=== PATIENT | male | born 1940 | race Caucasian/White ===

== ENCOUNTER 2017-12-16 12:14 | Inpatient (IN) | payer OTHER, MEDICARE ==
[~2017-12-16] VITALS: Ht 170.2 cm; Wt 78.7 kg
[2017-12-16] VITALS (26 sets, daily range): BP systolic 96–221; BP diastolic 59–127; PULSE 48–120; RESP 16–18; TEMP 98–98.4; O2SAT 93–100
[2017-12-16] MEDS: PROPOFOL 1000 MG/100 ML INJ 100 ML IV PRN ×2 (12:15→17:07)
[2017-12-16 12:28] LABS: AUTOMATED NEUTROPHIL # 4.3 TH/MM3 (1.8-7.7); BASOPHIL # 0.1 TH/MM3 (0-0.2); BASOPHIL % 1.5 % (0.0-2.0); EOSINOPHIL # 0.3 TH/MM3 (0-0.4); EOSINOPHIL % 3.8 % (0.0-4.0); HEMATOCRIT 50.8 % (39.0-51.0); HEMOGLOBIN 16.6 GM/DL (13.0-17.0); LYMPH % 23.3 % (9.0-44.0); LYMPHOCYTE # 1.7 TH/MM3 (1.0-4.8); MEAN CELL VOLUME 93.6 FL (80.0-100.0); MEAN CORPUSCULAR HEMOGLOBIN 30.7 PG (27.0-34.0); MEAN CORPUSCULAR HGB CONC 32.8 % (32.0-36.0); MEAN PLATELET VOLUME 10.3 FL (7.0-11.0); MONO % 11.1 % (0.0-8.0); MONOCYTE # 0.8 TH/MM3 (0-0.9); NEUT % 60.3 % (16.0-70.0); PLATELET COUNT 170 TH/MM3 (150-450); RED BLOOD COUNT 5.43 MIL/MM3 (4.50-5.90); RED CELL DISTRIBUTION WIDTH 13.8 % (11.6-17.2); WHITE BLOOD COUNT 7.2 TH/MM3 (4.0-11.0)
[2017-12-16] MEDS ORDERED: IODIXANOL 320 MG/ML 50 ML VIAL (for Rad CT) IVCONTRAST ONE (12:30)
[2017-12-16 12:37] LABS: CHLORIDE 105 MEQ/L (98-107); SODIUM (NA) 142 MEQ/L (136-145)
[2017-12-16 12:40] LABS: CALCIUM 9.1 MG/DL (8.5-10.1)
[2017-12-16 12:41] LABS: ALBUMIN 3.9 GM/DL (3.4-5.0); BICARBONATE 25.9 MEQ/L (21.0-32.0); BLOOD UREA NITROGEN 12 MG/DL (7-18); GLUCOSE,RANDOM 127 MG/DL (74-106); INTERNATIONAL NORMALIZED RATIO 1.1 RATIO; MAGNESIUM 1.6 MG/DL (1.5-2.5); PROTHROMBIN TIME - PATIENT 11.2 SEC (9.8-11.6)
[2017-12-16 12:44] LABS: ALT (GPT) 40 U/L (12-78); AST (GOT) 33 U/L (15-37); GLOMERULAR FILTRATION RATE 58 ML/MIN (>89)
--- NOTE | 2017-12-16 12:45 | PD ---
HPI Chief Complaint: Stroke Alert Time Seen by Provider: 12:24 Travel History International Travel<30 days: No Contact w/Intl Traveler<30days: No Traveled to known affect area: No History of Present Illness HPI This 77-year-old male is brought by paramedics. We believe his name is actually Florian MAURICIO. He has a history of atrial fibrillation. He had an ablation by Dr. Simpson in October. He is currently on Eliquis. His common-law has given some history and says that he generally takes his medication. He does not drink alcohol. There is no history of trauma. Is apparently visiting a friend when he had a sudden onset of severe headache became unresponsive. He was brought by paramedics. He is very combative and further assessment and history was not obtainable. He is on Eliquis and his says that he takes his medications reliably. He his does say that he has an abdominal aortic aneurysm which gets measured periodically PFSH Past Medical History ?: Not Social History Alcohol Use: No Tobacco Use: No Allergies-Medications (Allergen,Severity, Reaction): Coded Allergies: No Allergy Information Available (Unverified , 12/16/17) Reported Meds & Prescriptions Reported Meds & Active Scripts Active Reported Escitalopram (Escitalopram Oxalate) 10 Mg Tab 10 Mg PO DAILY Eliquis (Apixaban) 5 Mg Tab 5 Mg PO BID Magox 400 (Magnesium Oxide) 400 Mg Tablet 1 Tab PO DAILY Atorvastatin (Atorvastatin Calcium) 40 Mg Tab 40 Mg PO HS Amiodarone (Amiodarone HCl) 200 Mg Tab 200 Mg PO DAILY Tamsulosin (Tamsulosin HCl) 0.4 Mg Cap 0.8 Mg PO HS Omeprazole 20 Mg Tab 20 Mg PO DAILY Lisinopril 5 Mg Tab 5 Mg PO DAILY Digoxin 0.125 Mg Tab 0.125 Mg PO DAILY Metoprolol Succinate ER 24 HR (Metoprolol Succinate) 50 Mg Tab 50 Mg PO DAILY Metoprolol Succinate ER 24 HR (Metoprolol Succinate) 100 Mg Tab 100 Mg PO DAILY Review of Systems ROS Limitations: Clinical Condition, Intubated Physical Exam Narrative GENERAL: Well-developed male. On arrival he is extremely combative. He appears to be moving all extremities but will not follow commands. He does not talk at all or answer any questions SKIN: Focused skin assessment warm/dry. HEAD: Atraumatic. Normocephalic. EYES: Pupils equal and round. No scleral icterus. No injection or drainage. ENT: No nasal bleeding or discharge. Mucous membranes pink and moist. NECK: Trachea midline. No JVD. CARDIOVASCULAR: Regular rate and rhythm. No murmur appreciated. RESPIRATORY: No accessory muscle use. Clear to auscultation. Breath sounds equal bilaterally. GASTROINTESTINAL: Abdomen soft, non-tender, nondistended. Hepatic and splenic margins not palpable. MUSCULOSKELETAL: No obvious deformities. No clubbing. No cyanosis. No edema. NEUROLOGICAL: He appears to move all extremities. He does not follow commands. He does not have any meaningful speech Data Data Last Documented VS Vital Signs Date Time Temp Pulse Resp B/P (MAP) Pulse Ox O2 Delivery O2 Flow Rate FiO2 12/16/17 14:08 52 18 117/72 (87) 100 Ventilator 12/16/17 13:43 100 12/16/17 12:15 98.0 Orders Orders Blood Glucose (12/16/17 12:18) Oximetry (12/16/17 12:18) Iv Access Insert/Monitor (12/16/17 12:18) Ecg Monitoring (12/16/17 12:18) Oxygen Administration (12/16/17 12:18) Complete Blood Count With Diff (12/16/17 12:18) Act Partial Throm Time (Ptt) (12/16/17 12:18) Prothrombin Time / Inr (Pt) (12/16/17 12:18) Comprehensive Metabolic Panel (12/16/17 12:18) Type And Screen (12/16/17 12:18) Fibrinogen (12/16/17 12:18) Drug Screen, Random Urine (12/16/17 12:18) Electrocardiogram (12/16/17 12:24) Magnesium (Mg) (12/16/17 12:24) Thyroid Stimulating Hormone (12/16/17 12:24) Chest, Single Ap (12/16/17 12:24) Ct Brain W/O Iv Contrast(Rout) (12/16/17 12:24) Alcohol (Ethanol) (12/16/17 12:24) Propofol 1000 Mg/100 Ml Inj (Diprivan 10 (12/16/17 12:30) Cta Brain W Iv Contrast W 3d (12/16/17 12:49) Cta Neck W Iv Contrast W 3d (12/16/17 12:49) Ondansetron Inj (Zofran Inj) (12/16/17 13:30) Hydromorphone Pf Inj (Dilaudid Pf Inj) (12/16/17 13:30) Sodium Chlor 0.9% 1000 Ml Inj (Ns 1000 M (12/16/17 13:30) Iodixanol 320 Inj (Rad Ct) (Visipaque 32 (12/16/17 12:30) Portable Eeg (12/16/17 ) Mri Brain W/O Contrast (12/16/17 ) Urinary Catheter Insert/Apply (12/16/17 14:06) Paul-Gastric Tube Insert/Mon (12/16/17 14:06) Restraints Non-Violent ERICK.Q3H (12/16/17 14:06) Admit Order (Ed Use Only) (12/16/17 14:15) Ct Abd/Pel W/O Iv Contrast (12/16/17 14:15) Labs Laboratory Tests Test 12/16/17 12:00 12/16/17 13:15 White Blood Count 7.2 TH/MM3 Red Blood Count 5.43 MIL/MM3 Hemoglobin 16.6 GM/DL Hematocrit 50.8 % Mean Corpuscular Volume 93.6 FL Mean Corpuscular Hemoglobin 30.7 PG Mean Corpuscular Hemoglobin Concent 32.8 % Red Cell Distribution Width 13.8 % Platelet Count 170 TH/MM3 Mean Platelet Volume 10.3 FL Neutrophils (%) (Auto) 60.3 % Lymphocytes (%) (Auto) 23.3 % Monocytes (%) (Auto) 11.1 % Eosinophils (%) (Auto) 3.8 % Basophils (%) (Auto) 1.5 % Neutrophils # (Auto) 4.3 TH/MM3 Lymphocytes # (Auto) 1.7 TH/MM3 Monocytes # (Auto) 0.8 TH/MM3 Eosinophils # (Auto) 0.3 TH/MM3 Basophils # (Auto) 0.1 TH/MM3 CBC Comment DIFF FINAL Differential Comment Prothrombin Time 11.2 SEC Prothromb Time International Ratio 1.1 RATIO Activated Partial Thromboplast Time 22.6 SEC Fibrinogen 283 mg/dL Blood Urea Nitrogen 12 MG/DL Creatinine 1.10 MG/DL Random Glucose 127 MG/DL Total Protein 8.1 GM/DL Albumin 3.9 GM/DL Calcium Level 9.1 MG/DL Alkaline Phosphatase 107 U/L Aspartate Amino Transf (AST/SGOT) 33 U/L Alanine Aminotransferase (ALT/SGPT) 40 U/L Total Bilirubin 1.0 MG/DL Sodium Level 142 MEQ/L Potassium Level 4.2 MEQ/L Chloride Level 105 MEQ/L Carbon Dioxide Level 25.9 MEQ/L Anion Gap 11 MEQ/L Estimat Glomerular Filtration Rate 58 ML/MIN Magnesium Level 1.6 MG/DL Thyroid Stimulating Hormone 3rd Gen 4.090 uIU/ML Ethyl Alcohol Level LESS THAN 3 MG/DL Urine Opiates Screen NEG Urine Barbiturates Screen NEG Urine Amphetamines Screen NEG Urine Benzodiazepines Screen POS Urine Cocaine Screen NEG Urine Cannabinoids Screen NEG MDM Medical Decision Making Medical Screen Exam Complete: Yes Emergency Medical Condition: Yes Medical Record Reviewed: Yes Differential Diagnosis Differential includes CVA, intracerebral hemorrhage, subarachnoid hemorrhage, altered mental status Narrative Course On arrival the patient was combative and not following any commands. He was brought in as a stroke alert and felt we needed immediate CT. He was sedated with etomidate and succinylcholine and taken for CT. Initial blood pressure was quite elevated but has come down with sedation observation. CT of the head shows encephalomalacia in the right cerebellum probably secondary to old ischemic event. There is no acute abnormality CTAs were obtained and did not show any acute large vessel occlusion. Case has been discussed with Dr. Mitchell. He is also discussed with Dr. Tyson who will admit the patient. She requests the patient be transferred to [place] and that we obtain a CT abdomen and pelvis to assess his abdominal aortic aneurysm Diagnosis Primary Impression: Altered mental status Admitting Information Admitting Physician Requests: Admit Yaniv Whiteside MD Dec 16, 2017 12:45
[2017-12-16 12:46] LABS: TOTAL PROTEIN 8.1 GM/DL (6.4-8.2)
[2017-12-16] MEDS ORDERED: METO1TAB9 PO (12:46)
[2017-12-16] MEDS ORDERED: METO1TAB43 PO (12:46)
[2017-12-16 12:47] LABS: ALKALINE PHOSPHATASE 107 U/L (45-117)
[2017-12-16] MEDS ORDERED: LISI-519 PO (12:55)
[2017-12-16] MEDS ORDERED: ATOR40TA16 PO (12:55)
[2017-12-16] MEDS ORDERED: OMEP20TA93 PO (12:55)
[2017-12-16] MEDS ORDERED: APIX5TAB PO (12:55)
[2017-12-16] MEDS ORDERED: TAMS0.4C4 PO (12:55)
[2017-12-16] MEDS ORDERED: DIGO0.12 PO (12:55)
[2017-12-16] MEDS ORDERED: ESCI10TA PO (12:55)
[2017-12-16] MEDS ORDERED: AMIO200T PO (12:55)
[2017-12-16] MEDS ORDERED: MAGO400T2 PO (12:55)
--- NOTE | 2017-12-16 12:59 | RADRPT ---
EXAM DATE/TIME: 12/16/2017 12:36 [facility] COMPARISON: No previous studies available for comparison. INDICATIONS : Stroke alert. Worst headache ever. RADIATION DOSE: 58.27 CTDIvol (mGy) This report was called by Dr. Segal to Dr. Cornelius at 12: 56 PM MEDICAL HISTORY : Non-responsive. SURGICAL HISTORY : Non-responsive. ENCOUNTER: Initial ACUITY: 1 day PAIN SCALE: Non-responsive LOCATION: cranial TECHNIQUE: Multiple contiguous axial images were obtained of the head. Using automated exposure control and adj ustment of the mA and/or kV according to patient size, radiation dose was kept as low as reasonably a chievable to obtain optimal diagnostic quality images. DICOM format image data is available electro nically for review and comparison. FINDINGS: CEREBRUM: There is generalized atrophy. Ventricles are normal. There is mild periventricular white matter low a ttenuation. No evidence of midline shift, mass lesion, hemorrhage or acute infarction. No extra-axi al fluid collections are seen. POSTERIOR FOSSA: There is encephalomalacia in the right cerebellum. The 4th ventricle is midline. The cerebelloponti ne angle is unremarkable. EXTRACRANIAL: Visualized sinuses are clear. SKULL: The calvaria is intact. No evidence of skull fracture. CONCLUSION: 1. No acute intracranial abnormality is identified. 2. There is encephalomalacia likely secondary to old ischemic event in the right cerebellum. Chronic changes also include mild generalized atrophy and periventricular white matter change most likely rep resenting chronic small vessel ischemic change. Sameer Segal MD on December 16, 2017 at 12:53 Board Certified Radiologist. This report was verified electronically.
--- NOTE | 2017-12-16 13:29 | RADRPT ---
EXAM DATE/TIME: 12/16/2017 12:51 [facility] COMPARISON: No previous studies available for comparison. INDICATIONS : Stroke alert. Worst headache ever. Intubated. IV CONTRAST: 100 cc Visipaque (iodixanol) IV ; Cumulative dose for multiple exams. RADIATION DOSE: 42.66 CTDIvol (mGy) ; Combined studies MEDICAL HISTORY : Non-responsive. SURGICAL HISTORY : Non-responsive. ENCOUNTER: Initial ACUITY: 1 day PAIN SCALE: Non-responsive LOCATION: cranial TECHNIQUE: Volumetric scanning was performed using a multi-row detector CT scanner. The data was post processed with a variety of visualization algorithms including full volume maximum intensity projection, multi -planar sliding thin slab reformation, curved planar reformation, and surface rendering techniques. Using automated exposure control and adjustment of the mA and/or kV according to patient size, radiat ion dose was kept as low as reasonably achievable to obtain optimal diagnostic quality images. DICO M format image data is available electronically for review and comparison. FINDINGS: Anterior circulation: Distal intracranial internal carotid arteries are patent with flow extending to the middle and anteri or cerebral arteries. Small caliber right A1 segment. There is no evidence for aneurysm, vessel trunc ation or stenosis, and no evidence for vascular malformation. Posterior circulation: Symmetric distal vertebral arteries with flow extending to basilar artery. There is no evidence for aneurysm, vessel truncation or stenosis, and no evidence for vascular malformation. CONCLUSION: 1. Hypoplastic right A1 segment. 2. No evidence for large vessel occlusion as questioned. Findings were present discussed with Dr. Mitchell. Jacinto Hernandez MD on December 16, 2017 at 13:21 Board Certified Radiologist. This report was verified electronically.
[2017-12-16] MEDS ORDERED: HYDROmorphone HCL PF 2 MG/ML VIAL IV PUSH ONE ×3 (13:30→17:45)
[2017-12-16] MEDS ORDERED: ONDANSETRON HCL 4 MG/2 ML VIAL IV PUSH ONE (13:30)
[2017-12-16] MEDS ORDERED: SODIUM CHLOR 0.9% 1000 ML INJ 1,000 ML IV ONE (13:30)
--- NOTE | 2017-12-16 13:40 | RADRPT ---
EXAM DATE/TIME: 12/16/2017 12:26 [facility] COMPARISON: No previous studies available for comparison. INDICATIONS : Post inutbation. MEDICAL HISTORY : Non responsive. SURGICAL HISTORY : Non responsive. ENCOUNTER: Initial ACUITY: 1 day PAIN SCORE: Non-responsive. LOCATION: chest FINDINGS: A single view of the chest demonstrates left basilar density. Right lung clear. Endotracheal tube 4 c m above the monet The cardiomediastinal contours are unremarkable. Osseous structures are intact. CONCLUSION: 1. Left basilar consolidation. 2. Adequate placement of endotracheal tube. Cole Tracy MD on December 16, 2017 at 13:37 Board Certified Radiologist. This report was verified electronically.
--- NOTE | 2017-12-16 13:50 | RADRPT ---
EXAM DATE/TIME: 12/16/2017 12:51 [facility] COMPARISON: CTA BRAIN W 3D RECON, December 16, 2017, 12:51. INDICATIONS : Stroke alert. Worst headache ever. Intubated. IV CONTRAST: 100 cc Visipaque (iodixanol) IV ; Cumulative dose for multiple exams. RADIATION DOSE: 42.66 CTDIvol (mGy) ; Combined studies MEDICAL HISTORY : Non-responsive. SURGICAL HISTORY : Non-responsive. ENCOUNTER: Initial ACUITY: 1 day PAIN SCALE: Non-responsive LOCATION: neck Elevated flow velocities and ICA/CCA ratios have been found to correlate with increased degrees of vessel stenosis, calculated as percentage of diameter relative to a normal segment of distal ICA/CCA. TECHNIQUE: Volumetric scanning was performed using a multirow detector CT scanner. The data was post processed with a variety of visualization algorithms including full-volume maximum intensity projection, multip lanar sliding thin-slab reformation, curved-planar reformation, and surface-rendering techniques. Us ing automated exposure control and adjustment of the mA and/or kV according to patient size, radiatio n dose was kept as low as reasonably achievable to obtain optimal diagnostic quality images. DICOM f ormat image data is available electronically for review and comparison. FINDINGS: AORTIC ARCH: There is a three-vessel origin of the great vessels from the aorta. No evidence of ostial narrowing. RIGHT CAROTID: The common carotid artery is intact. The carotid bulb has a normal configuration without ulceration o r narrowing. The internal carotid artery lumen is smooth without stenosis. The external carotid veronica ry is intact. LEFT CAROTID: The common carotid artery is intact. The carotid bulb has a normal configuration without ulceration or narrowing. The internal carotid artery lumen is smooth without stenosis. The external carotid ar ortiz is intact. VERTEBRALS: Dominant right vertebral artery. No stenotic lesions are seen. CONCLUSION: 1. No carotid stenosis. Cole Tracy MD on December 16, 2017 at 13:41 Board Certified Radiologist. This report was verified electronically.
[2017-12-16] MEDS ORDERED: SUCCINYLCHOLINE CHLORIDE 200 MG/10 ML VIAL IV PUSH ONE (15:00)
[2017-12-16] MEDS ORDERED: ETOMIDATE 20 MG/10 ML VIAL IV PUSH ONE (15:00)
--- NOTE | 2017-12-16 15:34 | RADRPT ---
EXAM DATE/TIME: 12/16/2017 14:52 [facility] COMPARISON: No previous studies available for comparison. INDICATIONS : Assess abdominal aortic aneurysm. Previous stroke alert patient earlier this afternoon with histor y of abdominal aortic aneurysm. ORAL CONTRAST: No oral contrast ingested. RADIATION DOSE: 21.24 CTDIvol (mGy) MEDICAL HISTORY : Aneurysm, abdominal. Gastroesophageal reflux disease. Hypertension.Atrial fibrillation. Anticoagulant therapy. SURGICAL HISTORY : None. ENCOUNTER: Subsequent ACUITY: 1 day PAIN SCALE: Non-responsive LOCATION: pelvis abdomen TECHNIQUE: Volumetric scanning of the abdomen and pelvis was performed. Using automated exposure control and ad justment of the mA and/or kV according to patient size, radiation dose was kept as low as reasonably achievable to obtain optimal diagnostic quality images. DICOM format image data is available electro nically for review and comparison. FINDINGS: LOWER LUNGS: Consolidating airspace disease is identified in both lower lobes. LIVER: Homogeneous density without lesion. There is no dilation of the biliary tree. Small calcified gallst ones are identified. SPLEEN: Normal size without lesion. PANCREAS: Within normal limits. KIDNEYS: A 5.2 cm cyst is identified in the midpole of the right kidney. Kidneys are otherwise unremarkable wi thout evidence of hydronephrosis or suspicious lesions. ADRENAL GLANDS: Within normal limits. VASCULAR: Bilobed aneurysm enlargement is identified of the infrarenal abdominal aorta. The more superior dilat ation measures 3.5 cm. The lower dilatation measures 3.9 cm. Aneurysmal enlargement is seen of both c ommon iliac arteries. The right measures 1.8 cm and the left 2.4 cm. Aneurysms are otherwise intact w ithout evidence of rupture or leakage. BOWEL/MESENTERY: The stomach, small bowel, and colon demonstrate no acute abnormality. There is no free intraperitone al air or fluid. ABDOMINAL WALL: Small fat containing umbilical hernia is noted. RETROPERITONEUM: There is no lymphadenopathy. BLADDER: Mild wall thickening is noted. Ku catheter is in place. REPRODUCTIVE: The prostate gland is markedly enlarged measuring 6.2 x 7.3 x 8.0 in size. INGUINAL: There is no lymphadenopathy or hernia. MUSCULOSKELETAL: Within normal limits for patient age. CONCLUSION: 1. Infrarenal abdominal aortic aneurysm. 2. Bibasilar consolidating airspace disease. 3. Cholelithiasis 4. Prostatomegaly 5. Left renal cyst Ovi Puentes MD on December 16, 2017 at 15:24 Board Certified Radiologist. This report was verified electronically.
--- NOTE | 2017-12-16 16:25 | RADRPT ---
EXAM DATE/TIME: 12/16/2017 15:27 [facility] COMPARISON: CT BRAIN W/O CONTRAST, December 16, 2017, 12:36. INDICATIONS : CVA. MEDICAL HISTORY : Hypertension. Afib. SURGICAL HISTORY : Hernia sx, Shoulder sx, Ablation, Vented. ENCOUNTER: Initial ACUITY: 1 day PAIN SCORE: Nonresponsive. LOCATION: Bilateral cranial TECHNIQUE: Multiplanar, multisequence MRI of the brain was performed without contrast. FINDINGS: CEREBRUM: The ventricles are normal for age. No evidence of midline shift, mass lesion, hemorrhage or acute in farction. No extraaxial fluid collections are seen. The pituitary gland and suprasellar cistern are normal in configuration. WHITE MATTER: Periventricular and scattered deep white matter tracks areas of increased T2 flair signal intensity c haracteristic of mild small vessel ischemic demyelination POSTERIOR FOSSA: Old right cerebellar infarct with regional encephalomalacia. The 4th ventricle is midline. The cereb ellopontine angle is unremarkable. The cerebellar tonsils are normal in position. DIFFUSION IMAGING: There are few areas of increased signal on the diffusion weighted images, one in the left basal gangl ia and a second area in the watershed area of the parietal-occipital region. On the ADC maps, there m ay be a punctate area of true diffusion restriction in the left basal ganglia but I believe signal in the right watershed area represents T2 shine through. EXTRACRANIAL: The visualized portions of the orbits and paranasal sinuses are unremarkable. 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 2. Scattered areas of increased signal intensity on the diffusion weighted imaging sequence with prob able true punctate lacunar type infarct in the left basal ganglia. Based on the ADC maps, I believe t he increased signal in the right parieto-occipital watershed area is T2 shine through. 3. Mild periventricular and scattered deep white matter tracks areas of small vessel ischemic [place]. Andrés Lyons MD on December 16, 2017 at 15:58 Board Certified Radiologist. This report was verified electronically.
[2017-12-16] MEDS ORDERED: MAGNESIUM HYDROXIDE SUSP 30 ML CUP PO PRN (17:30)
[2017-12-16] MEDS ORDERED: RESP: ALBUTEROL 2.5 MG/IPRATROPIUM 0.5 MG NEB (PRN) INH (17:30)
[2017-12-16] MEDS ORDERED: SENNOSIDES 8.6 MG TAB PO PRN (17:30)
[2017-12-16] MEDS ORDERED: BISACODYL 10 MG SUPP RECTAL PRN (17:30)
[2017-12-16] MEDS ORDERED: ACETAMINOPHEN 325 MG TAB PO PRN (17:30)
[2017-12-16] MEDS ORDERED: CHLORHEXIDINE GLUCONATE 2 % 1 PACK (2 CLOTHS) TOP PRN (17:30)
[2017-12-16] MEDS ORDERED: LACTULOSE SYRUP 20 GM/30 ML CUP PO PRN (17:30)
[2017-12-16] MEDS ORDERED: ONDANSETRON HCL 4 MG/2 ML VIAL IV PUSH PRN (17:30)
[2017-12-16] MEDS ORDERED: MISCELLANEOUS NURSING INFORMATION XX SCH (17:30)
[2017-12-16] MEDS ORDERED: SODIUM CHLORIDE 0.9% FLUSH 10 ML FLUSH IV FLUSH PRN (17:30)
[2017-12-16] MEDS: SODIUM CHLOR 0.9% 1000 ML INJ 1,000 ML IV SCH (17:34)
[2017-12-16] MEDS ORDERED: ARTIFICIAL TEARS OPTH SOLN 15 ML BTL EACH EYE SCH ×2 (18:00→22:00)
[2017-12-16] MEDS ORDERED: ACETAMINOPHEN 650 MG/20.3 ML UDC NG PRN (18:15)
[2017-12-16] MEDS ORDERED: POTASSIUM CHLOR 40 MEQ PREMIX 100 ML IV PRN ×2 (18:30)
[2017-12-16] MEDS ORDERED: MAGNESIUM OXIDE 400 MG TAB PO PRN (18:30)
[2017-12-16] MEDS ORDERED: MAGNESIUM SULFATE INJ 4 GM in SODIUM CHLORIDE 0.9% INJ 92 ML IV PRN (18:30)
[2017-12-16] MEDS ORDERED: POTASSIUM CHLORIDE 25 MEQ EFFERVESCENT TAB PO PRN (18:30)
[2017-12-16] MEDS ORDERED: MAGNESIUM SULFATE INJ 2 GM in SODIUM CHLORIDE 0.9% INJ 96 ML IV PRN (18:30)
[2017-12-16] MEDS ORDERED: POTASSIUM PHOSPHATE INJ 30 MMOL in SODIUM CHLOR 0.9% 250 ML INJ 250 ML IV PRN (18:30)
[2017-12-16] MEDS ORDERED: POTASSIUM PHOSPHATE MONOBASIC 500 MG TAB PO/TUBE PRN (18:30)
[2017-12-16] MEDS ORDERED: GLUCAGON 1 MG/ML VIAL OTHER PRN (18:30)
[2017-12-16] MEDS ORDERED: DEXTROSE 50% IN WATER 50 ML VIAL(D50) IV PUSH PRN (18:30)
[2017-12-16] MEDS ORDERED: SODIUM PHOSPHATE INJ 30 MMOL in SODIUM CHLOR 0.9% 250 ML INJ 240 ML IV PRN (18:30)
--- NOTE | 2017-12-16 18:59 | HHI.HP ---
[facility] Service Critical Care Medicine Primary Care Physician Rohit Page MD Admission Diagnosis ALTERED MENTAL STATUS Diagnosis: (1) Headache Diagnosis: Principal (2) Acute respiratory failure Diagnosis: Principal (3) Cholelithiasis Diagnosis: Secondary (4) Umbilical hernia Diagnosis: Secondary (5) Renal cyst, right Diagnosis: Secondary (6) BPH (benign prostatic hyperplasia) Diagnosis: Secondary (7) Anticoagulant long-term use Diagnosis: Principal (8) Essential hypertension Diagnosis: Principal (9) Gastroesophageal reflux disease Diagnosis: Secondary (10) Atrial fibrillation Diagnosis: Principal (11) History of CVA (cerebrovascular accident) Diagnosis: Secondary (12) Aneurysm of infrarenal abdominal aorta Diagnosis: Secondary (13) Dyslipidemia Diagnosis: Principal (14) Depression Diagnosis: Secondary (15) Altered mental status Diagnosis: Principal Chief Complaint: Onset of headache with altered mental status Travel History International Travel<30 Days: No Contact w/Intl Traveler <30 Da: No Traveled to Known Affected Are: No History of Present Illness This is a 77 year-old male. Real name is Florian MAURICIO. Date of admission 12/17/2007. Past medical history includes atrial fibrillation status post ablation by Dr. Waller, chronic apixaban use, hypertension, dyslipidemia, gastroesophageal disease and prior history of CVA in 2012 and a known infrarenal AAA. Today, this patient was visiting a local friend when he had a sudden onset of severe headache became unresponsive. He was brought by paramedics to [facility]. He is very combative and further assessment and history was initially not obtainable. CT brain revealed old right cerebellar CVA. MRI brain revealed old right cerebellar infarct with a left basal ganglia left possible lacunar infarct. MRA brain revealed hypoplastic right A1 segment. EEG was performed with results pending. Patient had a abdominal CT which revealed a 5 producing right renal cyst, infrarenal AAA 3.5-3.9 cm with the right iliac aneurysm 0.8 cm and left aneurysm 2.4 cm's. Cholelithiasis and BPH. Patient is currently a propofol drip at 50 mcg/kg/min with high oxygen requirements. Awaiting EEG results. Patient is a gag and a cough and withdraws to pain bilateral upper lower extremities. Upper tremors are clenched. Review of Systems ROS Limitations: Intubated Past Family Social History Allergies: Coded Allergies: No Allergy Information Available (Unverified , 12/16/17) Past Medical History Right renal cyst Depression disorder NOS Dyslipidemia Hypertension/essential Chronic atrial fibrillation BPH Gastroesophageal reflux disease History of CVA 2013 Infrarenal AAA with bilateral iliac aneurysms Past Surgical History 3 AAA repair Left rotator cuff repair Ablation Reported Medications Escitalopram 10 mg p.o. daily Apixaban 5 mg p.o. twice daily Amiodarone 200 mg daily Tamsulosin 0.8 mg p.o. daily Omeprazole 20 mg p.o. daily Lisinopril 5 mg p.o. daily Digoxin 0.125 mg p.o. daily Metoprolol succinate 150 mg p.o. daily Magnesium oxide 400 mg p.o. daily Active Ordered Medications Reviewed in EMR Family History Father from CVA at age 86/couplets. Mother with bladder disorder. Brother with heart disease Social History Currently denies alcohol use. Prior social alcohol use. Quit tobacco 40 years ago. Started smoking at age 5 according to prior records. No illicit drug use documented. Physical Exam Vital Signs Vital Signs Date Time Temp Pulse Resp B/P (MAP) Pulse Ox O2 Delivery O2 Flow Rate FiO2 12/16/17 18:06 12/16/17 17:41 88 16 176/76 (109) 99 Ventilator 12/16/17 17:13 60 16 140/71 (94) 99 Ventilator 12/16/17 16:30 55 16 150/77 (101) 99 Ventilator 12/16/17 16:16 48 16 164/78 (106) 99 Ventilator 60 12/16/17 16:11 100 60 12/16/17 15:50 100 100 12/16/17 15:40 100 100 12/16/17 15:30 98.0 50 18 167/94 (118) 99 12/16/17 15:15 50 18 145/76 (99) 99 Ventilator 12/16/17 15:14 18 12/16/17 15:00 50 18 151/79 (103) 100 Ventilator 12/16/17 14:46 Ventilator 12/16/17 14:25 50 18 149/79 (102) 100 Ventilator 12/16/17 14:20 18 12/16/17 14:08 52 18 117/72 (87) 100 Ventilator 12/16/17 13:43 100 12/16/17 13:40 55 18 96/62 (73) 99 Ventilator 12/16/17 13:30 55 159/87 (111) 99 12/16/17 13:15 68 144/80 (101) 99 12/16/17 13:10 99 100 12/16/17 12:54 68 18 125/68 (87) 100 Ventilator 100 12/16/17 12:45 70 161/88 (112) 99 12/16/17 12:40 100 100 12/16/17 12:30 78 179/102 (127) 12/16/17 12:20 120 221/127 (158) 12/16/17 12:18 100 Ventilator 100 12/16/17 12:15 98.0 86 198/112 (140) 12/16/17 12:15 76 Physical Exam GENERAL: 77-year-old male currently orotracheally intubated SKIN: Warm and dry. No rash HEAD: Atraumatic. Normocephalic. EYES: Pupils equal and round about 2 mm bilaterally and reactive. No scleral icterus. No injection or drainage. ENT: No nasal bleeding or discharge. Mucous membranes pink and moist. NECK: Trachea midline. No JVD. CARDIOVASCULAR: Regular rate and rhythm. S1, S2 predose repair without murmur RESPIRATORY: Clear to auscultation. Breath sounds equal bilaterally. GASTROINTESTINAL: Abdomen soft, non-tender, nondistended. Hepatic and splenic margins not palpable. MUSCULOSKELETAL: Extremities without significant peripheral edema. No obvious deformities. NEUROLOGICAL: Positive gag. Positive cough. Positive corneal reflex. Pupils are 2 mm bilaterally and reactive. Withdraws to pain bilateral upper and lower exams. Upper extremities are clenched. Laboratory Laboratory Tests Test 12/16/17 12:00 12/16/17 13:15 12/16/17 15:55 White Blood Count 7.2 Red Blood Count 5.43 Hemoglobin 16.6 Hematocrit 50.8 Mean Corpuscular Volume 93.6 Mean Corpuscular Hemoglobin 30.7 Mean Corpuscular Hemoglobin Concent 32.8 Red Cell Distribution Width 13.8 Platelet Count 170 Mean Platelet Volume 10.3 Neutrophils (%) (Auto) 60.3 Lymphocytes (%) (Auto) 23.3 Monocytes (%) (Auto) 11.1 Eosinophils (%) (Auto) 3.8 Basophils (%) (Auto) 1.5 Neutrophils # (Auto) 4.3 Lymphocytes # (Auto) 1.7 Monocytes # (Auto) 0.8 Eosinophils # (Auto) 0.3 Basophils # (Auto) 0.1 CBC Comment DIFF FINAL Differential Comment Prothrombin Time 11.2 Prothromb Time International Ratio 1.1 Activated Partial Thromboplast Time 22.6 Fibrinogen 283 Blood Urea Nitrogen 12 Creatinine 1.10 Random Glucose 127 Total Protein 8.1 Albumin 3.9 Calcium Level 9.1 Alkaline Phosphatase 107 Aspartate Amino Transf (AST/SGOT) 33 Alanine Aminotransferase (ALT/SGPT) 40 Total Bilirubin 1.0 Sodium Level 142 Potassium Level 4.2 Chloride Level 105 Carbon Dioxide Level 25.9 Anion Gap 11 Estimat Glomerular Filtration Rate 58 Magnesium Level 1.6 Thyroid Stimulating Hormone 3rd Gen 4.090 Ethyl Alcohol Level LESS THAN 3 Urine Opiates Screen NEG Urine Barbiturates Screen NEG Urine Amphetamines Screen NEG Urine Benzodiazepines Screen POS Urine Cocaine Screen NEG Urine Cannabinoids Screen NEG Blood Gas Puncture Site LT BRACHIAL Blood Gas Patient Temperature 98.6 Blood Gas HCO3 26 Blood Gas Base Excess 2.7 Blood Gas Oxygen Saturation 98 Arterial Blood pH 7.51 Arterial Blood Partial Pressure CO2 32 Arterial Blood Partial Pressure O2 251 Arterial Blood Oxygen Content 21.8 Arterial Blood Carboxyhemoglobin 1.1 Arterial Blood Methemoglobin 1.4 Blood Gas Hemoglobin 15.5 Oxygen Delivery Device VENTILATOR Blood Gas Ventilator Setting 18/600/PEEP 5 Blood Gas Inspired Oxygen 100 Result Diagram: 12/16/17 1200 12/16/17 1200 Imaging Last Impressions Abdomen/Pelvis CT 12/16/17 1415 Signed Impressions: Service Date/Time: Saturday, December 16, 2017 14:52 - CONCLUSION: 1. Infrarenal abdominal aortic aneurysm. 2. Bibasilar consolidating airspace disease. 3. Cholelithiasis 4. Prostatomegaly 5. Left renal cyst Ovi Puentes MD Neck CTA 12/16/17 1249 Signed Impressions: Service Date/Time: Saturday, December 16, 2017 12:51 - CONCLUSION: 1. No carotid stenosis. Cole Tracy MD Head CTA 12/16/17 1249 Signed Impressions: Service Date/Time: Saturday, December 16, 2017 12:51 - CONCLUSION: 1. Hypoplastic right A1 segment. 2. No evidence for large vessel occlusion as questioned. Findings were present discussed with Dr. Mitchell. Jacinto Hernandez MD Head CT 12/16/17 1224 Signed Impressions: Service Date/Time: Saturday, December 16, 2017 12:36 - CONCLUSION: 1. No acute intracranial abnormality is identified. 2. There is encephalomalacia likely secondary to old ischemic event in the right cerebellum. Chronic changes also include mild generalized atrophy and periventricular white matter change most likely representing chronic small vessel ischemic change. Sameer Segal MD Chest X-Ray 12/16/17 1224 Signed Impressions: Service Date/Time: Saturday, December 16, 2017 12:26 - CONCLUSION: 1. Left basilar consolidation. 2. Adequate placement of endotracheal tube. Cole Tracy MD Brain MRI 12/16/17 0000 Signed Impressions: Service Date/Time: Saturday, December 16, 2017 15:27 - 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 2. Scattered areas of increased signal intensity on the diffusion weighted imaging sequence with probable true punctate lacunar type infarct in the left basal ganglia. Based on the ADC maps, I believe the increased signal in the right parieto-occipital watershed area is T2 shine through. 3. Mild periventricular and scattered deep white matter tracks areas of small vessel ischemic demyelination. Andrés Lyons MD Septic Shock Reassessment Septic shock perfusion: reassessment completed Caprini VTE Risk Assessment Caprini VTE Risk Assessment: Mod/High Risk (score >= 2) Caprini Risk Assessment Model Point Value = 1 Point Value = 2 Point Value = 3 Point Value = 5 Age 41-60 Minor surgery BMI > 25 kg/m2 Swollen legs Varicose veins or History of unexplained or recurrent spontaneous Oral contraceptives or hormone replacement Sepsis (< 1 month) Serious lung disease, including pneumonia (< 1 month) Abnormal pulmonary function Acute myocardial infarction Congestive heart failure (< 1 month) History of inflammatory bowel disease Medical patient at bed rest Age 61-74 Arthroscopic surgery Major open surgery (> 45 min) Laparoscopic surgery (> 45 min) Malignancy Confined to bed (> 72 hours) Immobilizing plaster cast Central venous access Age >= 75 History of VTE Family history of VTE Factor V Leiden Prothrombin [id number] Lupus anticoagulant Anticardiolipin antibodies Elevated serum homocysteine Heparin-induced thrombocytopenia Other congenital or acquired thrombophilia Stroke (< 1 month) Elective arthroplasty Hip, pelvis, or leg fracture Acute spinal cord injury (< 1 month) Prophylaxis Regimen Total Risk Factor Score Risk Level Prophylaxis Regimen 0-1 Low Early ambulation 2 Moderate Order ONE of the following: *Sequential Compression Device (SCD) *Heparin 5000 units SQ BID 3-4 Higher Order ONE of the following medications: *Heparin 5000 units SQ TID *Enoxaparin/Lovenox 40 mg SQ daily (WT < 150 kg, CrCl > 30 mL/min) *Enoxaparin/Lovenox 30 mg SQ daily (WT < 150 kg, CrCl > 10-29 mL/min) *Enoxaparin/Lovenox 30 mg SQ BID (WT < 150 kg, CrCl > 30 mL/min) AND/OR *Sequential Compression Device (SCD) 5 or more Highest Order ONE of the following medications: *Heparin 5000 units SQ TID (Preferred with Epidurals) *Enoxaparin/Lovenox 40 mg SQ daily (WT < 150 kg, CrCl > 30 mL/min) *Enoxaparin/Lovenox 30 mg SQ daily (WT < 150 kg, CrCl > 10-29 mL/min) *Enoxaparin/Lovenox 30 mg SQ BID (WT < 150 kg, CrCl > 30 mL/min) AND *Sequential Compression Device (SCD) Assessment and Plan Assessment and Plan Neuro/Psych: History of right cerebellar CVA 2012 Depressive disorder NOS Acute left basal ganglia lacunar CVA Currently a propofol/Midazolam and fentanyl drips for sedation/analgesia while intubated Goal of RA SS -2 Daily sedation vacation Holding escitalopram 10 mg p.o. daily/home medication for depression MRI brain revealed old right cerebellar infarct. Left basal ganglia perfusion possible acute infarct. Evaluated by Dr. Mitchell/neurology Recommended resuming apixaban 5 mg twice daily Continue atorvastatin 40 mg by tube daily/lipid-lowering agent Check hemoglobin A1c/lipid profile 2D echocardiogram ordered EEG performed at [place] question eduard. Await results CV: History of atrial fibrillation status post ablation Hypertension Dyslipidemia History of infrarenal AAA 2D echocardiogram pending CT abdomen/pelvis revealed 3.5-3.9 cm infrarenal AAA. Left iliac 2.4 cm. Right iliac 1.8 cm. No signs of rupture or leakage Holding home medications metoprolol succinate 50 mg by tube daily resume lisinopril 5 mg in the at twice daily for hypertension Continue amiodarone 200 mg by tube daily continue digoxin 0.125 mg by tube daily. Check level in a.m. Troponin in a.m. Resp: Acute respiratory failure [facility] 16/550/09/05/49 Ventilator bundle Albuterol/ipratropium aerosols every 6 hours with albuterol aerosols every 2 hours. Dyspnea Spontaneous breathing trials daily Follow-up chest x-ray in a.m. 12/17 GI: Gastroesophageal reflux disease OGT to [facility] Lansoprazole for GI prophylaxis. On omeprazole 20 mg daily at home Docusate sodium/senna 1 tablet twice daily for bowel regimen Transaminases within normal limits : BPH Okay for Ku catheter. Cannot give tamsulosin 0.8 mg by tube at night due to unable to place but Endo: Elevated TSH 4.09 Check free T3/T4 in a.m. Sliding scale insulin with Novulin R with Accu-Cheks every 6 hours to maintain euglycemia/medium regimen Check hemoglobin A1c Renal: Right renal cyst Creatinine currently within normal limits Monitor urine output Accurate I's and O's Heme: Chronic apixaban use 5 mg twice daily CBC currently within normal limits Recheck CBC and coags in a.m. Resume apixaban 5 mg twice daily per neurology's recommendation ID: Monitor for infection MSK: PT/OT evaluate and treat FEN: Replace electrolytes as clinically indicated per ICU electrolyte protocol 2 g of magnesium sulfate 1 now. Access -Utilize peripheral IV. Central line if indicated Prophylaxis -GI -lansoprazole -DVT -SCD/holding apixaban pending possible lumbar puncture 24 hours Critical Care: The total critical care time was 35 minutes. Time to perform other separately billable procedures was not included in the critical care time. Code Status Full code Discussed Condition With . GUIDE WINDER. CARE plan discussed and all questions answered. Problem Qualifiers (1) Headache: Qualified Codes: R51 - Headache (2) Acute respiratory failure: Qualified Codes: J96.00 - Acute respiratory failure, unspecified whether with hypoxia or hypercapnia (3) Cholelithiasis: Qualified Codes: K80.80 - Other cholelithiasis without obstruction (4) Umbilical hernia: Qualified Codes: K42.9 - Umbilical hernia without obstruction or gangrene (5) BPH (benign prostatic hyperplasia): Qualified Codes: N40.0 - Benign prostatic hyperplasia without lower urinary tract symptoms (6) Gastroesophageal reflux disease: Qualified Codes: K21.9 - Gastro-esophageal reflux disease without esophagitis (7) Atrial fibrillation: Qualified Codes: I48.2 - Chronic atrial fibrillation (8) Depression: Qualified Codes: F33.9 - Major depressive disorder, recurrent, unspecified (9) Altered mental status: Qualified Codes: R40.2431 - Adelso coma scale score 3-8, in the field [emt or ambulance] Jared Galdamez MD Dec 16, 2017 18:59
--- NOTE | 2017-12-16 19:06 | MB ---
cc: Pascale Mitchell MD, Dalia MD DATE: 12/16/2017 Real name Florian Pérez HISTORY OF PRESENT ILLNESS: This is a 77-year-old man, brought in by paramedics, history of atrial fibrillation, ablation by Sridhar in October, currently on Eliquis. His gave history to the ER doctor stating he does take his medications. He does not drink alcohol. No history of trauma. He was visiting a friend when he has sudden severe headache, became unresponsive, brought in by paramedics. He became very combative and he was intubated. Currently, now transferred to room 525 at [facility] on light sedation. He also had a CT of the abdomen due to a history of abdominal aortic aneurysm. There is no dissection. SOCIAL HISTORY: No significant alcohol or tobacco. ALLERGIES: NONE REPORTED. HOME MEDICINES: 1. Citalopram 2. Eliquis. 3. Mag-Ox 4. Atorvastatin. 5. Amiodarone. 6. Tamsulosin. 7. Omeprazole. 8. Lisinopril. 9. Digoxin. 10. Metoprolol. PHYSICAL EXAMINATION: VITAL SIGNS: Temperature currently being checked, but last temperature was 98, pulse 88, respiratory rate 16, blood pressure 176/76. NEUROLOGIC: His pupils are pinpoint. No gaze deviation. No facial asymmetry noted with the ET tube. 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 It is a purposeful retail brand ambassador, but he does retail brand ambassador. No withdrawal to painful stimuli in the toes. Limited exam. IMAGING STUDIES: MRI shows an old right cerebellar infarct, some increased signal with abnormality on diffusion weighted imaging with possible lacune in the left basal ganglia. There is some either a small stroke in the right parieto-occipital watershed area versus a T2 shine through. There is also white matter disease. CTA of the carotids unremarkable. CT of the [place]: Hypoplastic right A1 but no large vessel occlusion. LABORATORY DATA: CBC is really unremarkable. Coag panel: PTT 22.6. Chemistries: Glucose 127. TSH 4.09. Toxicology positive for benzodiazepine. EEG was completed, report is not available thus far. IMPRESSION: Lacunar infarcts, most likely the left basal ganglionic is accurate, the right side is not 100% versus shine through. We will get the electroencephalogram results. Continue his Eliquis versus just giving him Lovenox right now until he is more alert. Extubate him when possible and monitor for any atrial fibrillation. Continue current care as doing and further recommendations will be made as needed. MD LANI Fowler/ , 06:40 PM , 07:05 PM
[2017-12-16] MEDS ORDERED: MIDAZOLAM 100 MG/100 ML INJ 100 ML IV PRN (19:15)
[2017-12-16] MEDS ORDERED: fentaNYL DRIP 250 ML IV PRN (19:15)
[2017-12-16] MEDS ORDERED: ASPIRIN 81 MG CHEW TAB CHEW ONE (19:30)
[2017-12-16] MEDS: MAGNESIUM SULFATE 1 GM PREMIX 100 ML IV SCH ×2 (20:04→21:14)
[2017-12-16] MEDS: SODIUM CHLORIDE 0.9% FLUSH 10 ML FLUSH IV FLUSH SCH (20:49)
[2017-12-16] MEDS: LISINOPRIL 5 MG TAB PO SCH (21:00)
[2017-12-16] MEDS: PROPOFOL 1000 MG/100 ML IV PRN (21:12)
[2017-12-16] MEDS: APIXABAN 5 MG TABLET PO SCH (21:15)
[2017-12-16] MEDS: DOCUSATE SODIUM 50 MG/SENNA 8.6 MG TAB PO SCH (21:15)
[2017-12-16] MEDS: RESP: ALBUTEROL 2.5 MG/IPRATROPIUM 0.5 MG NEB (SCH) INH (23:12)
[2017-12-16] MEDS: INSULIN NovoLIN REGULAR SUPPLEMENTAL SCALE SQ SCH (23:39)
[2017-12-17] VITALS (29 sets, daily range): BP systolic 90–162; BP diastolic 54–98; PULSE 60–98; RESP 16–44; TEMP 97.8–98.7; O2SAT 90–99
[2017-12-17] MEDS: PROPOFOL 1000 MG/100 ML IV PRN ×2 (01:11→06:00)
[2017-12-17] MEDS: RESP: ALBUTEROL 2.5 MG/IPRATROPIUM 0.5 MG NEB (SCH) INH ×4 (03:27→19:35)
[2017-12-17] MEDS: CHLORHEXIDINE GLUCONATE 2 % 1 PACK (2 CLOTHS) TOP SCH (04:00)
--- NOTE | 2017-12-17 04:06 | RADRPT ---
EXAM DATE/TIME: 12/17/2017 03:13 [place] COMPARISON: CHEST SINGLE AP, December 16, 2017, 12:26. INDICATIONS : Short of breath. MEDICAL HISTORY : None. SURGICAL HISTORY : None. ENCOUNTER: Subsequent ACUITY: 2 days PAIN SCORE: 0/10 LOCATION: Bilateral chest FINDINGS: There is mild bibasilar consolidation again noted, not significantly changed on the left and moderate ly worse on the right. A small left pleural effusion is likely. No pneumothorax. Heart size stable, upper limits of normal. Endotracheal tube tip is approximately 2.3 cm above the monet. Nasogastric tube courses into the sto mach. CONCLUSION: Consolidation in the right medial lung base slightly worse. Left base consolidation not significantly changed. Sameer Lafleur MD on December 17, 2017 at 4:03 Board Certified Radiologist. This report was verified electronically.
[2017-12-17 05:45] LABS: AUTOMATED NEUTROPHIL # 17.3 TH/MM3 (1.8-7.7); BASOPHIL % 0.1 % (0.0-2.0); EOSINOPHIL % 0.1 % (0.0-4.0); HEMATOCRIT 48.2 % (39.0-51.0); HEMOGLOBIN 16.2 GM/DL (13.0-17.0); LYMPH % 1.7 % (9.0-44.0); LYMPHOCYTE # 0.3 TH/MM3 (1.0-4.8); MEAN CELL VOLUME 92.9 FL (80.0-100.0); MEAN CORPUSCULAR HEMOGLOBIN 31.2 PG (27.0-34.0); MEAN CORPUSCULAR HGB CONC 33.5 % (32.0-36.0); MEAN PLATELET VOLUME 9.9 FL (7.0-11.0); MONO % 6.5 % (0.0-8.0); MONOCYTE # 1.2 TH/MM3 (0-0.9); NEUT % 91.6 % (16.0-70.0); PLATELET COUNT 132 TH/MM3 (150-450); RED BLOOD COUNT 5.18 MIL/MM3 (4.50-5.90); RED CELL DISTRIBUTION WIDTH 14.9 % (11.6-17.2); WHITE BLOOD COUNT 18.9 TH/MM3 (4.0-11.0)
[2017-12-17] MEDS: CARBOXYMETHYLCELL SOD 0.5% OPTH SOLN 15 ML BTL EACH EYE SCH ×3 (05:49→23:53)
[2017-12-17 05:50] LABS: INTERNATIONAL NORMALIZED RATIO 1.2 RATIO; PROTHROMBIN TIME - PATIENT 12.1 SEC (9.8-11.6)
[2017-12-17] MEDS: INSULIN NovoLIN REGULAR SUPPLEMENTAL SCALE SQ SCH ×4 (06:00→23:53)
[2017-12-17 06:08] LABS: ALBUMIN 3.5 GM/DL (3.4-5.0); ALT (GPT) 33 U/L (12-78); AST (GOT) 38 U/L (15-37); BICARBONATE 26.1 MEQ/L (21.0-32.0); BLOOD UREA NITROGEN 17 MG/DL (7-18); CALCIUM 8.9 MG/DL (8.5-10.1); CHLORIDE 107 MEQ/L (98-107); CHOLESTEROL 129 MG/DL (120-200); CREATININE 1.22 MG/DL (0.60-1.30); GLOMERULAR FILTRATION RATE 57 ML/MIN (>89); GLUCOSE,RANDOM 101 MG/DL (74-106); MAGNESIUM 1.5 MG/DL (1.5-2.5); SODIUM (NA) 142 MEQ/L (136-145)
[2017-12-17 06:22] LABS: ALKALINE PHOSPHATASE 77 U/L (45-117); CHOLESTEROL/ HDL RATIO 3.29 RATIO; FREE T4 1.25 NG/DL (0.76-1.46); HDL CHOLESTEROL 39.2 MG/DL (40.0-60.0); LDL CHOLESTEROL 52 MG/DL (0-99); PHOSPHORUS 2.1 MG/DL (2.5-4.9); TOTAL BILIRUBIN ADULT 1.8 MG/DL (0.2-1.0); TRIGLYCERIDES 188 MG/DL (42-150)
[2017-12-17] MEDS: POTASSIUM CHLOR 20 MEQ PREMIX 100 ML IV PRN ×2 (06:45→09:08)
[2017-12-17] MEDS ORDERED: DEXMEDETOMIDINE INJ 200 MCG in SODIUM CHLORIDE 0.9% INJ 50 ML IV PRN (07:00)
--- NOTE | 2017-12-17 07:55 | HHI.CCPN ---
Subjective Remarks/Hospital Course This is a 77 year-old male. Real name is Florian MAURICIO. Date of admission 12/17/2007. Past medical history includes atrial fibrillation status post ablation by Dr. Waller, chronic apixaban use, hypertension, dyslipidemia, gastroesophageal disease and prior history of CVA in 2012 and a known infrarenal AAA. Today, this patient was visiting a local friend when he had a sudden onset of severe headache became unresponsive. He was brought by paramedics to [facility]. He is very combative and further assessment and history was initially not obtainable. CT brain revealed old right cerebellar CVA. MRI brain revealed old right cerebellar infarct with a left basal ganglia left possible lacunar infarct. MRA brain revealed hypoplastic right A1 segment. EEG was performed with results pending. Patient had a abdominal CT which revealed a 5 producing right renal cyst, infrarenal AAA 3.5-3.9 cm with the right iliac aneurysm 0.8 cm and left aneurysm 2.4 cm's. Cholelithiasis and BPH. Patient is currently a propofol drip at 50 mcg/kg/min with high oxygen requirements. Awaiting EEG results. Patient is a gag and a cough and withdraws to pain bilateral upper lower extremities. Upper tremors are clenched. Subjective: 12/17: Sedation vacation attempted, patient extremely combative, noted movement of all 4 extremities. Patient noted to have elevation in WBC sputum culture pending blood cultures urine culture ordered. Empiric antibiotics initiated. Objective Vital Signs Date Time Temp Pulse Resp B/P (MAP) Pulse Ox O2 Delivery O2 Flow Rate FiO2 12/17/17 06:00 64 12/17/17 04:26 96 60 12/17/17 04:00 98.3 17 107/58 (74) 12/16/17 17:41 Ventilator Intake and Output 12/17/17 12/17/17 12/17/17 07:59 15:59 23:59 Intake Total 878.6 ml Output Total 550 ml Balance 328.6 ml Result Diagram: 12/17/17 0521 12/17/17 0521 Other Results Laboratory Tests Test 12/16/17 15:55 Blood Gas Puncture Site LT BRACHIAL Blood Gas Patient Temperature 98.6 Blood Gas HCO3 26 mmol/L (22-26) Blood Gas Base Excess 2.7 mmol/L (-2-2) Blood Gas Oxygen Saturation 98 % (90-100) Arterial Blood pH 7.51 (7.380-7.420) Arterial Blood Partial Pressure CO2 32 mmHG (38-42) Arterial Blood Partial Pressure O2 251 mmHG (61-120) Arterial Blood Oxygen Content 21.8 Vol % (12.0-20.0) Arterial Blood Carboxyhemoglobin 1.1 % (0-4) Arterial Blood Methemoglobin 1.4 % (0-2) Blood Gas Hemoglobin 15.5 G/DL (12.0-16.0) Oxygen Delivery Device VENTILATOR Blood Gas Ventilator Setting 18/600/PEEP 5 Blood Gas Inspired Oxygen 100 % Imaging Last Impressions Chest X-Ray 12/17/17 0000 Signed Impressions: Service Date/Time: Sunday, December 17, 2017 03:13 - CONCLUSION: Consolidation in the right medial lung base slightly worse. Left base consolidation not significantly changed. Sameer Lafleur MD Abdomen/Pelvis CT 12/16/17 1415 Signed Impressions: Service Date/Time: Saturday, December 16, 2017 14:52 - CONCLUSION: 1. Infrarenal abdominal aortic aneurysm. 2. Bibasilar consolidating airspace disease. 3. Cholelithiasis 4. Prostatomegaly 5. Left renal cyst Ovi Puentes MD Neck CTA 12/16/17 1249 Signed Impressions: Service Date/Time: Saturday, December 16, 2017 12:51 - CONCLUSION: 1. No carotid stenosis. Cole Tracy MD Head CTA 12/16/17 1249 Signed Impressions: Service Date/Time: Saturday, December 16, 2017 12:51 - CONCLUSION: 1. Hypoplastic right A1 segment. 2. No evidence for large vessel occlusion as questioned. Findings were present discussed with Dr. Mitchell. Jacinto Hernandez MD Head CT 12/16/17 1224 Signed Impressions: Service Date/Time: Saturday, December 16, 2017 12:36 - CONCLUSION: 1. No acute intracranial abnormality is identified. 2. There is encephalomalacia likely secondary to old ischemic event in the right cerebellum. Chronic changes also include mild generalized atrophy and periventricular white matter change most likely representing chronic small vessel ischemic change. Sameer Segal MD Brain MRI 12/16/17 0000 Signed Impressions: Service Date/Time: Saturday, December 16, 2017 15:27 - 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 2. Scattered areas of increased signal intensity on the diffusion weighted imaging sequence with probable true punctate lacunar type infarct in the left basal ganglia. Based on the ADC maps, I believe the increased signal in the right parieto-occipital watershed area is T2 shine through. 3. Mild periventricular and scattered deep white matter tracks areas of small vessel ischemic demyelination. Andrés Lyons MD Last Impressions Abdomen/Pelvis CT 12/16/17 1415 Signed Impressions: Service Date/Time: Saturday, December 16, 2017 14:52 - CONCLUSION: 1. Infrarenal abdominal aortic aneurysm. 2. Bibasilar consolidating airspace disease. 3. Cholelithiasis 4. Prostatomegaly 5. Left renal cyst Ovi Puentes MD Neck CTA 12/16/17 1249 Signed Impressions: Service Date/Time: Saturday, December 16, 2017 12:51 - CONCLUSION: 1. No carotid stenosis. Cole Tracy MD Head CTA 12/16/17 1249 Signed Impressions: Service Date/Time: Saturday, December 16, 2017 12:51 - CONCLUSION: 1. Hypoplastic right A1 segment. 2. No evidence for large vessel occlusion as questioned. Findings were present discussed with Dr. Mitchell. Jacinto Hernandez MD Head CT 12/16/17 1224 Signed Impressions: Service Date/Time: Saturday, December 16, 2017 12:36 - CONCLUSION: 1. No acute intracranial abnormality is identified. 2. There is encephalomalacia likely secondary to old ischemic event in the right cerebellum. Chronic changes also include mild generalized atrophy and periventricular white matter change most likely representing chronic small vessel ischemic change. Sameer Segal MD Chest X-Ray 12/16/17 1224 Signed Impressions: Service Date/Time: Saturday, December 16, 2017 12:26 - CONCLUSION: 1. Left basilar consolidation. 2. Adequate placement of endotracheal tube. Cole Tracy MD Brain MRI 12/16/17 0000 Signed Impressions: Service Date/Time: Saturday, December 16, 2017 15:27 - 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 2. Scattered areas of increased signal intensity on the diffusion weighted imaging sequence with probable true punctate lacunar type infarct in the left basal ganglia. Based on the ADC maps, I believe the increased signal in the right parieto-occipital watershed area is T2 shine through. 3. Mild periventricular and scattered deep white matter tracks areas of small vessel ischemic demyelination. Andrés Lyons MD Objective Remarks GENERAL: 77-year-old male currently orotracheally intubated SKIN: Warm and dry. No rash HEAD: Atraumatic. Normocephalic. EYES: Pupils equal and round about 2 mm bilaterally and reactive. No scleral icterus. No injection or drainage. ENT: No nasal bleeding or discharge. Mucous membranes pink and moist. NECK: Trachea midline. No JVD. CARDIOVASCULAR: Regular rate and rhythm. S1, S2 predose repair without murmur RESPIRATORY: Clear to auscultation. Breath sounds equal bilaterally. GASTROINTESTINAL: Abdomen soft, non-tender, nondistended. Hepatic and splenic margins not palpable. MUSCULOSKELETAL: Extremities without significant peripheral edema. No obvious deformities. NEUROLOGICAL: Positive gag. Positive cough. Positive corneal reflex. Pupils are 2 mm bilaterally and reactive. Withdraws to pain bilateral upper and lower exams. Upper extremities are clenched. A/P Assessment and Plan Neuro/Psych: History of right cerebellar CVA 2013 Depressive disorder NOS Acute left basal ganglia lacunar CVA Currently a propofol/Midazolam and fentanyl drips for sedation/analgesia while intubated Goal of RASS -2 Daily sedation vacation Holding escitalopram 10 mg p.o. daily/home medication for depression MRI brain revealed old right cerebellar infarct. Left basal ganglia perfusion possible acute infarct. Evaluated by Dr. Mitchell/neurology Recommended resuming apixaban 5 mg twice daily Continue atorvastatin 40 mg by tube daily/lipid-lowering agent Check hemoglobin A1c/lipid profile- pending 2D echocardiogram ordered EEG performed at [place] question eduard. Await results CV: History of atrial fibrillation status post ablation Hypertension Dyslipidemia History of infrarenal AAA 2D echocardiogram pending CT abdomen/pelvis revealed 3.5-3.9 cm infrarenal AAA. Left iliac 2.4 cm. Right iliac 1.8 cm. No signs of rupture or leakage Holding home medications metoprolol succinate 50 mg by tube daily resume lisinopril 5 mg in the at twice daily for hypertension Continue amiodarone 200 mg by tube daily continue digoxin 0.125 mg by tube daily.12/17 Digoxin level 1.0 4/18 Troponin level pending Resp: Acute respiratory failure [facility] 16/550/1//50 Ventilator bundle Albuterol/ipratropium aerosols every 6 hours with albuterol aerosols every 2 hours. Dyspnea Spontaneous breathing trials daily 12/17 CXR -There is mild bibasilar consolidation again noted, not significantly changed on the left and moderately worse on the right. A small left pleural effusion. GI: Gastroesophageal reflux disease OGT to [facility] Lansoprazole for GI prophylaxis. On omeprazole 20 mg daily at home Docusate sodium/senna 1 tablet twice daily for bowel regimen Transaminases within normal limits : BPH Okay for Ku catheter. Cannot give tamsulosin 0.8 mg by tube at night due to unable to place but Endo: Elevated TSH 4.09 Free T3/T4 - 1.4 /1.25 Sliding scale insulin with Novulin R with Accu-Cheks every 6 hours to maintain euglycemia/medium regimen Hemoglobin [id number] Renal: Right renal cyst Creatinine currently within normal limits Monitor urine output Accurate I's and O's Heme: Chronic apixaban use 5 mg twice daily CBC currently within normal limits Recheck CBC and coags in a.m. 12/17 Resumed apixaban 5 mg twice daily per neurology's recommendation ID: Leukocytosis Monitor for infection Follow-up blood and sputum culture Lactate level 2.8, continue to trend MSK: PT/OT evaluate and treat FEN: Electrolyte derangement Replace electrolytes as clinically indicated per ICU electrolyte protocol Repletion of potassium 40 meq this am Access -Utilize peripheral IV. Central line if indicated Prophylaxis -GI -lansoprazole -DVT -SCD/holding apixaban pending possible lumbar puncture 24 hours Critical Care: my billing statement This patient remains critically ill with one or more organ systems which are or may become a threat to life. I have spent in excess of 30 minutes discontinuously in the care and management of this patient. This time is exclusive of procedures, and includes, but is not limited to, evaluation of the patient, review of the medical record, discussions with family, consultants, nursing staff, or respiratory therapy, and documentation in the medical record. 12/17 1530 - Pt now level 2 followup. Pt extubated, formal swallow evaluation performed, PT/ OT evaluation in progress. Planned transfer to [facility] in the am, and possible transfer to med/surg floor when bed becomes available. Physician Ginger Waite MD Dec 17, 2017 07:55
[2017-12-17] MEDS ORDERED: Vancomycin Consult Pharmacy 1 EA OTHER SCH (08:00)
--- NOTE | 2017-12-17 08:37 | MG ---
cc: Adriana Lynne MD AKA: [id number] INDICATIONS: An EEG was obtained on this [place] patient with a history of being intubated, on Diprivan. MEDICATIONS: Include also Dilaudid and Zofran. DESCRIPTION: This EEG shows low-amplitude beta activity diffusely. There are grossly symmetrical rhythms. There is some theta activity occasionally. Photic stimulation disclosed no significant change. INTERPRETATION: Abnormal electroencephalogram because of relatively mild diffuse abnormality, suggesting a mild diffuse disturbance of cerebral function. No epileptiform features present. Adriana Marroquin. MD Maged [facility]/ , 08:52 PM , 09:25 PM
[2017-12-17] MEDS ORDERED: APIXABAN 5 MG TABLET PO SCH (09:00)
[2017-12-17] MEDS ORDERED: PANTOPRAZOLE SODIUM 40 MG VIAL IV PUSH SCH (09:00)
[2017-12-17] MEDS: LISINOPRIL 5 MG TAB PO SCH ×2 (09:00→20:48)
[2017-12-17] MEDS: DIGOXIN 0.125 MG TAB PO SCH (09:00)
[2017-12-17] MEDS ORDERED: ASPIRIN 81 MG CHEW TAB CHEW SCH (09:00)
[2017-12-17] MEDS: SODIUM CHLOR 0.9% 1000 ML INJ 1,000 ML IV SCH ×2 (09:06→23:52)
[2017-12-17] MEDS: ATORVASTATIN 40 MG TAB PO SCH (09:06)
[2017-12-17] MEDS: APIXABAN 5 MG TABLET PO SCH ×2 (09:06→20:47)
[2017-12-17] MEDS: LANSOPRAZOLE SOLUTAB 30 MG TAB NG SCH (09:06)
[2017-12-17] MEDS: CEFEPIME INJ 2,000 MG in SODIUM CHLORIDE 0.9% INJ 100 ML IV SCH ×2 (09:07→17:56)
[2017-12-17] MEDS: SODIUM CHLORIDE 0.9% FLUSH 10 ML FLUSH IV FLUSH SCH ×2 (09:07→20:47)
[2017-12-17] MEDS: DOCUSATE SODIUM 50 MG/SENNA 8.6 MG TAB PO SCH ×2 (09:09→20:48)
[2017-12-17] MEDS: AZITHROMYCIN INJ 500 MG in SODIUM CHLOR 0.9% 250 ML INJ 250 ML IV SCH (09:09)
[2017-12-17] MEDS: POTASSIUM PHOSPHATE MONOBASIC 500 MG TAB PO PRN ×2 (09:44→15:42)
[2017-12-17] MEDS: VANCOMYCIN INJ 1,500 MG in SODIUM CHLORID 0.9% 500 ML INJ 500 ML IV SCH (10:34)
--- NOTE | 2017-12-17 12:36 | HHI.PR ---
Subjective Remarks extubated,hoarsed a bit confused Objective Vital Signs Date Time Temp Pulse Resp B/P (MAP) Pulse Ox O2 Delivery O2 Flow Rate FiO2 12/17/17 10:57 95 Nasal Cannula 4 36 12/17/17 09:03 96 50 12/17/17 06:00 64 12/17/17 04:26 96 60 12/17/17 04:00 60 12/17/17 04:00 66 12/17/17 04:00 98.3 66 17 107/58 (74) 98 12/17/17 02:00 62 12/17/17 01:27 95 60 12/17/17 00:00 62 12/17/17 00:00 60 12/17/17 00:00 98.4 62 16 103/57 (72) 95 12/16/17 23:01 93 60 12/16/17 22:00 61 12/16/17 20:00 98.4 75 16 120/59 (79) 95 12/16/17 20:00 60 12/16/17 20:00 75 12/16/17 18:31 98 60 12/16/17 18:06 12/16/17 17:41 88 16 176/76 (109) 99 Ventilator 12/16/17 17:13 60 16 140/71 (94) 99 Ventilator 18 16:30 55 16 150/77 (101) 99 Ventilator 18 16:16 48 16 164/78 (106) 99 Ventilator 60 18 16:11 100 60 18 15:50 100 100 18 15:40 100 100 18 15:30 98.0 50 18 167/94 (118) 99 18 15:15 50 18 145/76 (99) 99 Ventilator 18 15:14 18 18 15:00 50 18 151/79 (103) 100 Ventilator 18 14:46 Ventilator 18 14:25 50 18 149/79 (102) 100 Ventilator 18 14:20 18 18 14:08 52 18 117/72 (87) 100 Ventilator 18 13:43 100 18 13:40 55 18 96/62 (73) 99 Ventilator 18 13:30 55 159/87 (111) 99 12/16/17 13:15 68 144/80 (101) 99 12/16/17 13:10 99 100 12/16/17 12:54 68 18 125/68 (87) 100 Ventilator 100 12/16/17 12:45 70 161/88 (112) 99 12/16/17 12:40 100 100 I/O 12/16/17 12/16/17 12/16/17 12/17/17 12/17/17 12/17/17 07:00 15:00 23:00 07:00 15:00 23:00 Intake Total 1300 ml 878.6 ml Output Total 400 ml 550 ml Balance -400 ml 1300 ml 328.6 ml Intake Oral 0 ml IV Total 1300 ml 818.6 ml Tube Irrigant 60 ml Output Urine Total 400 ml 550 ml # Voids 1 # Bowel Movements 0 Result Diagram: 12/17/17 0521 12/17/17 0521 Imaging mri c/w left bg lacune with ?right shine through eeg no sz cta -ok Objective Remarks awake alert speech hoarsed from intubation perrla motor intact Assessment and Plan Assessment and Plan lacunar left bg inf -eliquis resume add baby asa qd pt-ot-st lipids dc planning. Pascale Mitchell MD Dec 17, 2017 12:36
[2017-12-17] MEDS: AMIODARONE 200 MG TAB PO SCH (15:42)
[2017-12-17 16:45] LABS: HEMOGLOBIN A1C 6.3 % (4.3-6.0)
[2017-12-17] MEDS: LABETALOL HCL 100 MG/20 ML VIAL IV PUSH PRN (20:48)
--- NOTE | 2017-12-17 23:06 | EKG ---
Date Performed: 12/16/2017 Time Performed: 13:30:58 PTAGE: 89 years EKG: SINUS BRADYCARDIA INCOMPLETE RIGHT BUNDLE BRANCH BLOCK LEFT ANTERIOR FASCICULAR BLOCK NONSP ECIFIC ST & T-WAVE ABNORMALITY MARKEDLY PROLONGED QT INTERVAL ABNORMAL ECG NO PREVIOUS TRACING DOCTOR: Lillian Bhat Interpretating Date/Time 12/17/2017 23:05:12
[2017-12-18] VITALS (13 sets, daily range): BP systolic 134–152; BP diastolic 72–92; PULSE 68–96; RESP 17–45; TEMP 98–98.6; O2SAT 88–98
[2017-12-18] MEDS: CEFEPIME INJ 2,000 MG in SODIUM CHLORIDE 0.9% INJ 100 ML IV SCH ×3 (01:06→17:36)
[2017-12-18] MEDS: RESP: ALBUTEROL 2.5 MG/IPRATROPIUM 0.5 MG NEB (SCH) INH ×4 (02:47→20:43)
[2017-12-18] MEDS: CHLORHEXIDINE GLUCONATE 2 % 1 PACK (2 CLOTHS) TOP SCH (04:00)
--- NOTE | 2017-12-18 05:42 | RADRPT ---
EXAM DATE/TIME: 12/18/2017 04:48 [facility] COMPARISON: CHEST SINGLE AP, December 17, 2017, 3:13. INDICATIONS : Shortness of breath, possible pulmonary disease. MEDICAL HISTORY : None. SURGICAL HISTORY : None. ENCOUNTER: Subsequent ACUITY: 3 days PAIN SCORE: Non-responsive. LOCATION: Bilateral chest FINDINGS: Minimal bibasilar atelectasis. No large effusion seen. No pneumothorax. Mild cardiomegaly stable. Endotracheal tube and nasogastric tube out. CONCLUSION: Improved bibasilar consolidation, now minimal. Interim extubation and nasogastric tube removal. Sameer Lafleur MD on December 18, 2017 at 5:40 Board Certified Radiologist. This report was verified electronically.
[2017-12-18] MEDS: INSULIN NovoLIN REGULAR SUPPLEMENTAL SCALE SQ SCH ×4 (06:00→21:47)
[2017-12-18] MEDS: CARBOXYMETHYLCELL SOD 0.5% OPTH SOLN 15 ML BTL EACH EYE SCH ×3 (06:21→21:47)
[2017-12-18] MEDS: SODIUM CHLOR 0.9% 1000 ML INJ 1,000 ML IV SCH ×2 (06:22→17:35)
[2017-12-18 06:48] LABS: AUTOMATED NEUTROPHIL # 12.6 TH/MM3 (1.8-7.7); BASOPHIL % 0.2 % (0.0-2.0); EOSINOPHIL % 0.3 % (0.0-4.0); HEMATOCRIT 40.5 % (39.0-51.0); HEMOGLOBIN 13.8 GM/DL (13.0-17.0); LYMPH % 2.3 % (9.0-44.0); LYMPHOCYTE # 0.3 TH/MM3 (1.0-4.8); MEAN CELL VOLUME 92.5 FL (80.0-100.0); MEAN CORPUSCULAR HEMOGLOBIN 31.5 PG (27.0-34.0); MEAN CORPUSCULAR HGB CONC 34.1 % (32.0-36.0); MEAN PLATELET VOLUME 9.6 FL (7.0-11.0); MONOCYTE # 0.8 TH/MM3 (0-0.9); NEUT % 91.2 % (16.0-70.0); PLATELET COUNT 126 TH/MM3 (150-450); RED BLOOD COUNT 4.38 MIL/MM3 (4.50-5.90); RED CELL DISTRIBUTION WIDTH 14.8 % (11.6-17.2); WHITE BLOOD COUNT 13.8 TH/MM3 (4.0-11.0)
[2017-12-18 07:16] LABS: ALBUMIN 3.2 GM/DL (3.4-5.0); AST (GOT) 44 U/L (15-37); BICARBONATE 26.7 MEQ/L (21.0-32.0); BLOOD UREA NITROGEN 19 MG/DL (7-18); CALCIUM 8.5 MG/DL (8.5-10.1); CHLORIDE 109 MEQ/L (98-107); CREATININE 1.05 MG/DL (0.60-1.30); GLOMERULAR FILTRATION RATE 68 ML/MIN (>89); GLUCOSE,RANDOM 118 MG/DL (74-106); MAGNESIUM 1.9 MG/DL (1.5-2.5); SODIUM (NA) 143 MEQ/L (136-145)
[2017-12-18 07:17] LABS: ALT (GPT) 28 U/L (12-78)
[2017-12-18 07:20] LABS: ALKALINE PHOSPHATASE 59 U/L (45-117); TOTAL BILIRUBIN ADULT 2.7 MG/DL (0.2-1.0); TOTAL PROTEIN 6.4 GM/DL (6.4-8.2)
[2017-12-18] MEDS: ATORVASTATIN 40 MG TAB PO SCH (08:56)
[2017-12-18] MEDS: LISINOPRIL 5 MG TAB PO SCH ×2 (08:56→21:47)
[2017-12-18] MEDS: LANSOPRAZOLE SOLUTAB 30 MG TAB NG SCH (08:57)
[2017-12-18] MEDS: DIGOXIN 0.125 MG TAB PO SCH (08:57)
[2017-12-18] MEDS: APIXABAN 5 MG TABLET PO SCH ×2 (08:57→21:47)
[2017-12-18] MEDS: SODIUM CHLORIDE 0.9% FLUSH 10 ML FLUSH IV FLUSH SCH ×2 (08:57→20:26)
[2017-12-18] MEDS: ASPIRIN EC 81 MG TABEC PO SCH (08:57)
[2017-12-18] MEDS: AMIODARONE 200 MG TAB PO SCH (08:57)
[2017-12-18] MEDS: DOCUSATE SODIUM 50 MG/SENNA 8.6 MG TAB PO SCH ×2 (08:57→21:47)
[2017-12-18] MEDS: AZITHROMYCIN INJ 500 MG in SODIUM CHLOR 0.9% 250 ML INJ 250 ML IV SCH (08:59)
[2017-12-18] MEDS: VANCOMYCIN INJ 1,500 MG in SODIUM CHLORID 0.9% 500 ML INJ 500 ML IV SCH (11:20)
--- NOTE | 2017-12-18 15:07 | ECHRPT ---
Indication: CVA/TIA CONCLUSIONS The left ventricular systolic function is low normal with an estimated ejection fraction in the rang e of 50- 55%. Wall thickness is normal. Normal left ventricular size. [id number] mitral valve regurgitation. There is severe tricuspid regurgitation. The estimated pulmonary arterial pressure is 71.5 mmHg. The left atrial size is moderately dilated. trace aortic valve regurgitation BP: 152 / 81 HR: 85 Rhythm: Sinus MEASUREMENTS (Male / Female) Normal Values Technical Quality:Good 2D ECHO LV Diastolic Diameter PLAX 6.0 cm 4.2 - 5.9 / 3.9 - 5.3 cm LV Systolic Diameter PLAX 4.7 cm IVS Diastolic Thickness 1.0 cm 0.6 - 1.0 / 0.6 - 0.9 cm LVPW Diastolic Thickness 1.1 cm 0.6 - 1.0 / 0.6 - 0.9 cm LV Relative Wall Thickness 0.4 LVOT Diameter 2.3 cm M-MODE Aortic Root Diameter MM 3.3 cm LA Systolic Diameter MM 6.1 cm LA Ao Ratio MM 1.8 AV Cusp Separation MM 2.6 cm DOPPLER MR Peak Velocity 401.0 cm/s MR Peak Gradient 64.3 mmHg LV E' Lateral Velocity 8.9 cm/s LV E' Septal Velocity 5.8 cm/s TR Peak Velocity 392.0 cm/s TR Peak Gradient 61.5 mmHg Right Atrial Pressure 10.0 mmHg Pulmonary Artery Systolic Pressu 71.5 mmHg Right Ventricular Systolic Press 71.5 mmHg PV Peak Velocity 100.0 cm/s PV Peak Gradient 4.0 mmHg FINDINGS LEFT VENTRICLE The left ventricular systolic function is low normal with an estimated ejection fraction in the rang e of 50- 55%. Wall thickness is normal. Normal left ventricular size. RIGHT VENTRICLE Normal right ventricular size and systolic function. LEFT ATRIUM The left atrial size is moderately dilated. RIGHT ATRIUM The right atrial size is normal. ATRIAL SEPTUM Normal atrial septal thickness without atrial level shunting by limited color doppler interrogation. AORTA The aortic root and proximal ascending aorta are normal in size on limited imaging. MITRAL VALVE [id number] mitral valve regurgitation. AORTIC VALVE Trileaflet aortic valve. No aortic valve stenosis or regurgitation. TRICUSPID VALVE There is severe tricuspid regurgitation. The estimated pulmonary arterial pressure is 71.5 mmHg. PULMONARY VALVE No pulmonary valve regurgitation or stenosis. VESSELS The inferior vena cava is normal in size. PERICARDIUM No pericardial effusion. Pal Torres MD, FACC, FSCAI (Electronically Signed) Final Date:18 December 2017 15:06
--- NOTE | 2017-12-18 18:28 | HHI.PR ---
Subjective Remarks Patient resting in bed eating his dinner Reported feeling well is aware of name time and place Discussed with the nurse, patient pulled out his Ku and caused urethral trauma is having hematuria now Objective Vitals Vital Signs Date Time Temp Pulse Resp B/P (MAP) Pulse Ox O2 Delivery O2 Flow Rate FiO2 12/18/17 18:00 69 12/18/17 16:00 73 12/18/17 16:00 98.2 73 30 134/76 (95) 96 12/18/17 14:00 70 12/18/17 12:00 98.6 96 39 138/75 (96) 88 12/18/17 12:00 96 12/18/17 10:00 73 12/18/17 08:00 98.1 68 17 135/72 (93) 94 12/18/17 08:00 68 12/18/17 06:00 76 12/18/17 04:00 98.3 85 45 152/81 (104) 91 12/18/17 04:00 85 12/18/17 02:00 88 12/18/17 00:00 98.0 92 34 143/92 (109) 94 12/18/17 00:00 92 12/17/17 22:00 89 12/17/17 20:00 98.7 98 27 157/82 96 12/17/17 20:00 98 12/17/17 19:35 97 I/O 12/17/17 12/17/17 12/17/17 12/18/17 12/18/17 12/18/17 07:00 15:00 23:00 07:00 15:00 23:00 Intake Total 878.6 ml 1075 ml 700 ml 375 ml Output Total 550 ml 600 ml 975 ml 525 ml Balance 328.6 ml 1075 ml 100 ml -975 ml -150 ml Intake Oral 0 ml 375 ml IV Total 818.6 ml 1075 ml 700 ml Tube Irrigant 60 ml Output Urine Total 550 ml 600 ml 975 ml 525 ml # Bowel Movements 0 0 0 Result Diagram: 12/18/1762312/18/17623 Objective Remarks GENERAL: This is a well-nourished, well-developed patient, in no apparent distress. SKIN: No rashes, warm and dry HEAD: Atraumatic. Normocephalic. EYES: Pupils equal round and reactive. Extraocular motions intact. No scleral icterus. ENT: Nose without bleeding, or drainage, Airway patent. NECK: Trachea midline. Supple CARDIOVASCULAR: Regular rate and rhythm without murmurs, gallops, or rubs. RESPIRATORY: Fair air entry bilaterally. No wheezes, rales, or rhonchi. GASTROINTESTINAL: Abdomen soft, non-tender, nondistended. Positive bowel sounds MUSCULOSKELETAL: Extremities without clubbing, cyanosis, or edema. Pedal pulses appreciated NEUROLOGICAL: Awake and alert. Moves all extremity. Normal speech.no focal neurological deficit A/P Problem List: (1) Headache ICD Code: R51 - Headache (2) Acute respiratory failure ICD Code: J96.00 - Acute respiratory failure, unspecified whether with hypoxia or hypercapnia (3) Cholelithiasis ICD Code: K80.20 - Calculus of gallbladder without cholecystitis without obstruction (4) Umbilical hernia ICD Code: K42.9 - Umbilical hernia without obstruction or gangrene (5) Renal cyst, right ICD Code: N28.1 - Cyst of kidney, acquired (6) BPH (benign prostatic hyperplasia) ICD Code: N40.0 - Benign prostatic hyperplasia without lower urinary tract symptoms (7) Anticoagulant long-term use ICD Code: Z79.01 - [employer] (current) use of anticoagulants (8) Essential hypertension ICD Code: I10 - Essential (primary) hypertension (9) Gastroesophageal reflux disease ICD Code: K21.9 - Gastro-esophageal reflux disease without esophagitis (10) Atrial fibrillation ICD Code: I48.91 - Unspecified atrial fibrillation (11) History of CVA (cerebrovascular accident) ICD Code: Z86.73 - Personal history of transient ischemic attack (TIA), and cerebral infarction without residual deficits (12) Aneurysm of infrarenal abdominal aorta ICD Code: I71.4 - Abdominal aortic aneurysm, without rupture (13) Dyslipidemia ICD Code: E78.5 - Hyperlipidemia, unspecified (14) Depression ICD Code: F32.9 - Major depressive disorder, single episode, unspecified (15) Altered mental status ICD Code: R41.82 - Altered mental status, unspecified Status: Acute Assessment and Plan 12/18: 2D echo 50% EF with severe TR increased pulmonary pressure, continue current care I recommended CBI if urine hematuria not improving will consult urology, continue monitoring in ICU, monitor blood pressure for permissive hypertension, appreciate neurology consultation History of right cerebellar CVA 2013 Depressive disorder NOS Acute left basal ganglia lacunar CVA Currently a propofol/Midazolam and fentanyl drips for sedation/analgesia while intubated Goal of RASS -2 Daily sedation vacation Holding escitalopram 10 mg p.o. daily/home medication for depression MRI brain revealed old right cerebellar infarct. Left basal ganglia perfusion possible acute infarct. Evaluated by Dr. Mitchell/neurology Recommended resuming apixaban 5 mg twice daily Continue atorvastatin 40 mg by tube daily/lipid-lowering agent Check hemoglobin A1c/lipid profile- pending 2D echocardiogram ordered EEG performed at [place] question eduard. Await results History of atrial fibrillation status post ablation Hypertension Dyslipidemia History of infrarenal AAA 2D echocardiogram CT abdomen/pelvis revealed 3.5-3.9 cm infrarenal AAA. Left iliac 2.4 cm. Right iliac 1.8 cm. No signs of rupture or leakage Holding home medications metoprolol succinate 50 mg by tube daily resume lisinopril 5 mg in the at twice daily for hypertension Continue amiodarone 200 mg by tube daily continue digoxin 0.125 mg by tube daily.12/17 Digoxin level 1.0 Acute respiratory failure [facility] 16/550///50 Ventilator bundle Albuterol/ipratropium aerosols every 6 hours with albuterol aerosols every 2 hours. Dyspnea Spontaneous breathing trials daily 12/17 CXR -There is mild bibasilar consolidation again noted, not significantly changed on the left and moderately worse on the right. A small left pleural effusion. Gastroesophageal reflux disease OGT to LIWS Lansoprazole for GI prophylaxis. On omeprazole 20 mg daily at home Docusate sodium/senna 1 tablet twice daily for bowel regimen Transaminases within normal limits BPH Okay for Ku catheter. Cannot give tamsulosin 0.8 mg by tube at night due to unable to place but Endo: Elevated TSH 4.09 Free T3/T4 - 1.4 /1.25 Sliding scale insulin with Novulin R with Accu-Cheks every 6 hours to maintain euglycemia/medium regimen Hemoglobin A1c 6.3 Chronic apixaban use 5 mg twice daily CBC currently within normal limits Recheck CBC and coags in a.m. 12/17 Resumed apixaban 5 mg twice daily per neurology's recommendation MSK: PT/OT evaluate and treat FEN: Electrolyte derangement Replace electrolytes as clinically indicated per ICU electrolyte protocol Repletion of potassium 40 meq this am Access -Utilize peripheral IV. Central line if indicated Prophylaxis -GI -lansoprazole -DVT -SCD/holding apixaban pending possible lumbar puncture 24 hours Problem Qualifiers (1) Headache: Qualified Codes: R51 - Headache (2) Acute respiratory failure: Qualified Codes: J96.00 - Acute respiratory failure, unspecified whether with hypoxia or hypercapnia (3) Cholelithiasis: Qualified Codes: K80.80 - Other cholelithiasis without obstruction (4) Umbilical hernia: Qualified Codes: K42.9 - Umbilical hernia without obstruction or gangrene (5) BPH (benign prostatic hyperplasia): Qualified Codes: N40.0 - Benign prostatic hyperplasia without lower urinary tract symptoms (6) Gastroesophageal reflux disease: Qualified Codes: K21.9 - Gastro-esophageal reflux disease without esophagitis (7) Atrial fibrillation: Qualified Codes: I48.2 - Chronic atrial fibrillation (8) Depression: Qualified Codes: F33.9 - Major depressive disorder, recurrent, unspecified (9) Altered mental status: Qualified Codes: R40.2431 - [place] coma scale score 3-8, in the field [emt or ambulance] Darlene Blake MD Dec 18, 2017 18:28
[2017-12-18] MEDS: LABETALOL HCL 100 MG/20 ML VIAL IV PUSH PRN (21:49)
[2017-12-19] VITALS (16 sets, daily range): BP systolic 144–178; BP diastolic 78–101; PULSE 59–86; RESP 14–37; TEMP 98.1–99.5; O2SAT 91–97
[2017-12-19] MEDS: CEFEPIME INJ 2,000 MG in SODIUM CHLORIDE 0.9% INJ 100 ML IV SCH ×3 (00:43→17:17)
[2017-12-19] MEDS: SODIUM CHLOR 0.9% 1000 ML INJ 1,000 ML IV SCH ×2 (01:59→16:52)
[2017-12-19] MEDS: RESP: ALBUTEROL 2.5 MG/IPRATROPIUM 0.5 MG NEB (SCH) INH ×4 (04:00→20:50)
[2017-12-19] MEDS: CHLORHEXIDINE GLUCONATE 2 % 1 PACK (2 CLOTHS) TOP SCH (04:00)
[2017-12-19] MEDS: INSULIN NovoLIN REGULAR SUPPLEMENTAL SCALE SQ SCH ×4 (06:00→23:08)
[2017-12-19] MEDS: LABETALOL HCL 100 MG/20 ML VIAL IV PUSH PRN ×2 (06:49→12:18)
[2017-12-19] MEDS: CARBOXYMETHYLCELL SOD 0.5% OPTH SOLN 15 ML BTL EACH EYE SCH ×3 (06:50→19:31)
[2017-12-19] MEDS: DIGOXIN 0.125 MG TAB PO SCH (09:00)
[2017-12-19] MEDS: ATORVASTATIN 40 MG TAB PO SCH (09:00)
[2017-12-19] MEDS: AMIODARONE 200 MG TAB PO SCH (09:00)
[2017-12-19] MEDS: ASPIRIN EC 81 MG TABEC PO SCH (09:00)
[2017-12-19] MEDS: LANSOPRAZOLE SOLUTAB 30 MG TAB NG SCH (09:00)
[2017-12-19] MEDS: LISINOPRIL 5 MG TAB PO SCH ×2 (09:00→19:30)
[2017-12-19] MEDS: SODIUM CHLORIDE 0.9% FLUSH 10 ML FLUSH IV FLUSH SCH ×2 (09:00→19:30)
[2017-12-19] MEDS: APIXABAN 5 MG TABLET PO SCH ×2 (09:00→19:30)
[2017-12-19] MEDS: DOCUSATE SODIUM 50 MG/SENNA 8.6 MG TAB PO SCH ×2 (09:00→19:30)
[2017-12-19] MEDS: AZITHROMYCIN INJ 500 MG in SODIUM CHLOR 0.9% 250 ML INJ 250 ML IV SCH (09:01)
[2017-12-19] MEDS: VANCOMYCIN INJ 1,500 MG in SODIUM CHLORID 0.9% 500 ML INJ 500 ML IV SCH (11:51)
[2017-12-19] MEDS ORDERED: LORazepam 2 MG/ML VIAL IV PUSH PRN ×3 (17:00)
[2017-12-19] MEDS ORDERED: LORazepam 2 MG TAB PO PRN (17:00)
[2017-12-19] MEDS ORDERED: LORazepam 1 MG TAB PO PRN (17:00)
[2017-12-19] MEDS ORDERED: FLUMAZENIL 0.5 MG/5 ML VIAL IV PUSH PRN (17:00)
--- NOTE | 2017-12-19 19:30 | HHI.PR ---
Subjective Remarks Per the nurse patient is more confused and compulsive today, he wanted to shake hands with me he is talkative but not very coherent, questionable confabulation I will order stat BMP, ammonia and lactic acid and will apply CIWA protocol Objective Vitals Vital Signs Date Time Temp Pulse Resp B/P (MAP) Pulse Ox O2 Delivery O2 Flow Rate FiO2 12/19/17 18:00 60 12/19/17 16:00 59 12/19/17 16:00 98.1 59 14 164/78 (106) 94 12/19/17 14:00 63 12/19/17 12:00 99.5 64 25 161/98 (119) 91 12/19/17 12:00 64 12/19/17 10:00 75 12/19/17 08:38 97 12/19/17 08:00 76 12/19/17 08:00 98.2 76 18 144/95 (111) 94 12/19/17 06:00 70 12/19/17 04:14 95 21 12/19/17 04:00 99.2 80 36 178/101 (126) 96 12/19/17 04:00 80 12/19/17 02:00 61 12/19/17 00:00 99.1 66 22 155/80 (105) 93 12/19/17 00:00 66 12/18/17 22:00 76 12/18/17 20:44 98 21 12/18/17 20:00 98.6 78 24 150/86 (107) 94 12/18/17 20:00 78 I/O 12/18/17 12/18/17 12/18/17 12/19/17 12/19/17 12/19/17 07:00 15:00 23:00 07:00 15:00 23:00 Intake Total 615 ml 375 ml 100 ml 615 ml 600 ml Output Total 975 ml 525 ml 1125 ml 1000 ml Balance -975 ml 615 ml -150 ml -1025 ml 615 ml -400 ml Intake Oral 375 ml 100 ml 500 ml IV Total 615 ml 615 ml 100 ml Output Urine Total 975 ml 525 ml 825 ml 1000 ml Stool Total 300 ml # Bowel Movements 0 1 2 Result Diagram: 12/18/1762312/18/17623 Objective Remarks GENERAL: This is a well-nourished, well-developed patient, in no apparent distress. CARDIOVASCULAR: RRR, no gallops, or rubs. RESPIRATORY: Fair air entry bilaterally. GASTROINTESTINAL: Abdomen soft, non-tender, nondistended. Positive bowel sounds MUSCULOSKELETAL: Extremities without clubbing, cyanosis, or edema. Pedal pulses appreciated NEUROLOGICAL: Awake and alert. Seems to be confused moves all extremity. Normal speech.no focal neurological deficit A/P Problem List: (1) Headache ICD Code: R51 - Headache (2) Acute respiratory failure ICD Code: J96.00 - Acute respiratory failure, unspecified whether with hypoxia or hypercapnia (3) Cholelithiasis ICD Code: K80.20 - Calculus of gallbladder without cholecystitis without obstruction (4) Umbilical hernia ICD Code: K42.9 - Umbilical hernia without obstruction or gangrene (5) Renal cyst, right ICD Code: N28.1 - Cyst of kidney, acquired (6) BPH (benign prostatic hyperplasia) ICD Code: N40.0 - Benign prostatic hyperplasia without lower urinary tract symptoms (7) Anticoagulant long-term use ICD Code: Z79.01 - [facility] (current) use of anticoagulants (8) Essential hypertension ICD Code: I10 - Essential (primary) hypertension (9) Gastroesophageal reflux disease ICD Code: K21.9 - Gastro-esophageal reflux disease without esophagitis (10) Atrial fibrillation ICD Code: I48.91 - Unspecified atrial fibrillation (11) History of CVA (cerebrovascular accident) ICD Code: Z86.73 - Personal history of transient ischemic attack (TIA), and cerebral infarction without residual deficits (12) Aneurysm of infrarenal abdominal aorta ICD Code: I71.4 - Abdominal aortic aneurysm, without rupture (13) Dyslipidemia ICD Code: E78.5 - Hyperlipidemia, unspecified (14) Depression ICD Code: F32.9 - Major depressive disorder, single episode, unspecified (15) Altered mental status ICD Code: R41.82 - Altered mental status, unspecified Status: Acute Assessment and Plan 12/18: 2D echo 50% EF with severe TR increased pulmonary pressure, continue current care I recommended CBI if urine hematuria not improving will consult urology, continue monitoring in ICU, monitor blood pressure for permissive hypertension, appreciate neurology consultation 12/19: More confused today will apply CIWA protocol, stat BMP ammonia level and lactic acid level, close monitoring discussed with the nurse, start blood pressure control History of right cerebellar CVA 2012 Depressive disorder NOS Acute left basal ganglia lacunar CVA Currently a propofol/Midazolam and fentanyl drips for sedation/analgesia while intubated Goal of RASS -2 Daily sedation vacation Holding escitalopram 10 mg p.o. daily/home medication for depression MRI brain revealed old right cerebellar infarct. Left basal ganglia perfusion possible acute infarct. Evaluated by Dr. Mitchell/neurology Recommended resuming apixaban 5 mg twice daily Continue atorvastatin 40 mg by tube daily/lipid-lowering agent Check hemoglobin A1c/lipid profile- pending 2D echocardiogram ordered EEG performed at [place] question eduard. Await results History of atrial fibrillation status post ablation Hypertension Dyslipidemia History of infrarenal AAA 2D echocardiogram CT abdomen/pelvis revealed 3.5-3.9 cm infrarenal AAA. Left iliac 2.4 cm. Right iliac 1.8 cm. No signs of rupture or leakage Holding home medications metoprolol succinate 50 mg by tube daily resume lisinopril 5 mg in the at twice daily for hypertension Continue amiodarone 200 mg by tube daily continue digoxin 0.125 mg by tube daily.12/17 Digoxin level 1.0 Acute respiratory failure [facility] 16/550///50 Ventilator bundle Albuterol/ipratropium aerosols every 6 hours with albuterol aerosols every 2 hours. Dyspnea Spontaneous breathing trials daily 12/17 CXR -There is mild bibasilar consolidation again noted, not significantly changed on the left and moderately worse on the right. A small left pleural effusion. Gastroesophageal reflux disease OGT to LIWS Lansoprazole for GI prophylaxis. On omeprazole 20 mg daily at home Docusate sodium/senna 1 tablet twice daily for bowel regimen Transaminases within normal limits BPH Okay for Ku catheter. Cannot give tamsulosin 0.8 mg by tube at night due to unable to place but Endo: Elevated TSH 4.09 Free T3/T4 - 1.4 /1.25 Sliding scale insulin with Novulin R with Accu-Cheks every 6 hours to maintain euglycemia/medium regimen Hemoglobin A1c 6.3 Chronic apixaban use 5 mg twice daily CBC currently within normal limits Recheck CBC and coags in a.m. 12/17 Resumed apixaban 5 mg twice daily per neurology's recommendation MSK: PT/OT evaluate and treat FEN: Electrolyte derangement Replace electrolytes as clinically indicated per ICU electrolyte protocol Repletion of potassium 40 meq this am Access -Utilize peripheral IV. Central line if indicated Prophylaxis -GI -lansoprazole -DVT -SCD/holding apixaban pending possible lumbar puncture 24 hours Problem Qualifiers (1) Headache: Qualified Codes: R51 - Headache (2) Acute respiratory failure: Qualified Codes: J96.00 - Acute respiratory failure, unspecified whether with hypoxia or hypercapnia (3) Cholelithiasis: Qualified Codes: K80.80 - Other cholelithiasis without obstruction (4) Umbilical hernia: Qualified Codes: K42.9 - Umbilical hernia without obstruction or gangrene (5) BPH (benign prostatic hyperplasia): Qualified Codes: N40.0 - Benign prostatic hyperplasia without lower urinary tract symptoms (6) Gastroesophageal reflux disease: Qualified Codes: K21.9 - Gastro-esophageal reflux disease without esophagitis (7) Atrial fibrillation: Qualified Codes: I48.2 - Chronic atrial fibrillation (8) Depression: Qualified Codes: F33.9 - Major depressive disorder, recurrent, unspecified (9) Altered mental status: Qualified Codes: R40.2431 - [place] coma scale score 3-8, in the field [emt or ambulance] Darlene Blake MD Dec 19, 2017 19:30
[2017-12-19] MEDS: LORazepam 2 MG/ML VIAL IV PUSH PRN ×2 (19:31→21:13)
[2017-12-19 20:26] LABS: BICARBONATE 23.2 MEQ/L (21.0-32.0); CALCIUM 8.6 MG/DL (8.5-10.1); CREATININE 0.87 MG/DL (0.60-1.30); MAGNESIUM 1.4 MG/DL (1.5-2.5)
[2017-12-19] MEDS ORDERED: HYDROmorphone HCL PF 0.5 MG/0.5 ML SYRINGE IV PUSH ONE (22:15)
[2017-12-20] VITALS (14 sets, daily range): BP systolic 166–179; BP diastolic 81–110; PULSE 61–95; RESP 11–23; TEMP 97–99; O2SAT 96–99
[2017-12-20] MEDS: CEFEPIME INJ 2,000 MG in SODIUM CHLORIDE 0.9% INJ 100 ML IV SCH ×3 (00:05→18:02)
[2017-12-20] MEDS: SODIUM CHLOR 0.9% 1000 ML INJ 1,000 ML IV SCH ×2 (00:06→16:47)
[2017-12-20] MEDS: LORazepam 2 MG/ML VIAL IV PUSH PRN ×3 (00:52→03:25)
[2017-12-20] MEDS: LABETALOL HCL 100 MG/20 ML VIAL IV PUSH PRN ×6 (01:14→18:44)
[2017-12-20] MEDS: CHLORHEXIDINE GLUCONATE 2 % 1 PACK (2 CLOTHS) TOP SCH (04:00)
[2017-12-20] MEDS: RESP: ALBUTEROL 2.5 MG/IPRATROPIUM 0.5 MG NEB (SCH) INH ×4 (04:30→20:45)
[2017-12-20] MEDS: INSULIN NovoLIN REGULAR SUPPLEMENTAL SCALE SQ SCH ×4 (05:38→23:06)
[2017-12-20] MEDS: CARBOXYMETHYLCELL SOD 0.5% OPTH SOLN 15 ML BTL EACH EYE SCH ×3 (05:38→23:04)
[2017-12-20 07:25] LABS: AUTOMATED NEUTROPHIL # 9.3 TH/MM3 (1.8-7.7); BASOPHIL % 0.3 % (0.0-2.0); EOSINOPHIL # 0.3 TH/MM3 (0-0.4); EOSINOPHIL % 2.5 % (0.0-4.0); HEMATOCRIT 40.6 % (39.0-51.0); HEMOGLOBIN 13.8 GM/DL (13.0-17.0); LYMPH % 3.2 % (9.0-44.0); LYMPHOCYTE # 0.4 TH/MM3 (1.0-4.8); MEAN CELL VOLUME 92.9 FL (80.0-100.0); MEAN CORPUSCULAR HEMOGLOBIN 31.6 PG (27.0-34.0); MEAN PLATELET VOLUME 10.4 FL (7.0-11.0); PLATELET COUNT 138 TH/MM3 (150-450); RED BLOOD COUNT 4.37 MIL/MM3 (4.50-5.90); RED CELL DISTRIBUTION WIDTH 14.9 % (11.6-17.2); WHITE BLOOD COUNT 10.9 TH/MM3 (4.0-11.0)
[2017-12-20 07:42] LABS: CALCIUM 8.7 MG/DL (8.5-10.1); CREATININE 0.7 MG/DL (0.60-1.30)
[2017-12-20] MEDS: LISINOPRIL 5 MG TAB PO SCH (08:22)
[2017-12-20] MEDS: AMIODARONE 200 MG TAB PO SCH (08:22)
[2017-12-20] MEDS: DIGOXIN 0.125 MG TAB PO SCH (08:22)
[2017-12-20] MEDS: DOCUSATE SODIUM 50 MG/SENNA 8.6 MG TAB PO SCH ×2 (08:22→20:41)
[2017-12-20] MEDS: APIXABAN 5 MG TABLET PO SCH ×2 (08:22→20:41)
[2017-12-20] MEDS: ATORVASTATIN 40 MG TAB PO SCH (08:22)
[2017-12-20] MEDS: ASPIRIN EC 81 MG TABEC PO SCH (08:22)
[2017-12-20] MEDS: SODIUM CHLORIDE 0.9% FLUSH 10 ML FLUSH IV FLUSH SCH ×2 (08:23→20:41)
[2017-12-20] MEDS: LANSOPRAZOLE SOLUTAB 30 MG TAB NG SCH (08:29)
[2017-12-20] MEDS: POTASSIUM CHLOR 20 MEQ PREMIX 100 ML IV PRN ×4 (09:28→16:44)
[2017-12-20] MEDS ORDERED: PHARMACY ORDERED LAB ONE (10:45)
[2017-12-20] MEDS: POTASSIUM PHOSPHATE MONOBASIC 500 MG TAB PO SCH ×2 (11:00→20:41)
[2017-12-20] MEDS ORDERED: POTASSIUM CHLOR 40 MEQ PREMIX 100 ML IV ONE (11:00)
[2017-12-20] MEDS: METOPROLOL SUCCINATE 50 MG EXTENDED RELEASE TAB PO SCH (11:00)
[2017-12-20] MEDS ORDERED: ENALAPRILAT 1.25 MG/ML VIAL IV PUSH PRN (11:00)
[2017-12-20] MEDS: AZITHROMYCIN INJ 500 MG in SODIUM CHLOR 0.9% 250 ML INJ 250 ML IV SCH (12:03)
[2017-12-20] MEDS: MAGNESIUM SULFATE 1 GM PREMIX 100 ML IV SCH ×2 (12:03→14:55)
[2017-12-20] MEDS ORDERED: hydrALAZINE HCL 20 MG/ML VIAL ONE (13:37)
[2017-12-20] MEDS ORDERED: hydrALAZINE HCL 20 MG/ML VIAL IV PUSH PRN ×2 (13:45)
--- NOTE | 2017-12-20 15:08 | RADRPT ---
EXAM DATE/TIME: 12/20/2017 14:36 [place] COMPARISON: CT BRAIN W/O CONTRAST, December 16, 2017, 12:36. INDICATIONS : Altered mental status. RADIATION DOSE: 37.40 CTDIvol (mGy) MEDICAL HISTORY : Cardiovascular disease. SURGICAL HISTORY : None. ENCOUNTER: Initial ACUITY: 1 day PAIN SCALE: 5/10 LOCATION: chest TECHNIQUE: Multiple contiguous axial images were obtained of the head. Using automated exposure control and adj ustment of the mA and/or kV according to patient size, radiation dose was kept as low as reasonably a chievable to obtain optimal diagnostic quality images. DICOM format image data is available electro nically for review and comparison. FINDINGS: CEREBRUM: The ventricles are normal for age. Stable white matter changes in the junction of the right patel r adiata and centrum semiovale No evidence of midline shift, mass lesion, hemorrhage or acute infarctio n. No extra-axial fluid collections are seen. POSTERIOR FOSSA: Old right cerebellar infarct. The 4th ventricle is midline. The cerebellopontine angle is unremarka ble. EXTRACRANIAL: The visualized portion of the orbits is intact. SKULL: The calvaria is intact. No evidence of skull fracture. Partially calcified subcutaneous nodule in th e left posterior parietal region probably represents a small sebaceous cyst CONCLUSION: 1. Stable chronic changes with old right cerebellar infarct and white matter changes in the right cor theresa radiata. 2. Nothing acute. Andrés Lyons MD on December 20, 2017 at 15:03 Board Certified Radiologist. This report was verified electronically.
--- NOTE | 2017-12-20 15:51 | HHI.PR ---
Subjective Remarks I was called by the nurse patient is having hypertension blood pressure is not controlled in the 190/100 Also he is more lethargic today in the restrain I came to see the patient his significant other was at was at the bedside she told me he is not alcoholic he stopped drinking 6 years ago Patient is lethargic confused, not answering question he is in restrain Objective Vitals Vital Signs Date Time Temp Pulse Resp B/P (MAP) Pulse Ox O2 Delivery O2 Flow Rate FiO2 12/20/17 14:00 61 12/20/17 12:00 97.8 61 11 166/81 (109) 99 12/20/17 11:02 Nasal Cannula 4.00 12/20/17 10:00 64 12/20/17 08:00 97.9 67 15 169/97 (121) 96 12/20/17 08:00 67 12/20/17 06:00 67 12/20/17 04:30 97 Nasal Cannula 4.00 12/20/17 04:00 99.0 61 23 179/110 (133) 96 12/20/17 04:00 61 12/20/17 02:00 65 12/20/17 00:00 98.5 87 21 173/101 (125) 99 12/20/17 00:00 87 12/19/17 22:00 86 12/19/17 20:50 94 21 12/19/17 20:00 74 12/19/17 20:00 99.1 74 37 171/92 (118) 94 12/19/17 18:00 60 12/19/17 16:00 59 12/19/17 16:00 98.1 59 14 164/78 (106) 94 I/O 12/19/17 12/19/17 12/19/17 12/20/17 12/20/17 12/20/17 07:00 15:00 23:00 07:00 15:00 23:00 Intake Total 100 ml 615 ml 600 ml 3155 ml Output Total 1125 ml 1000 ml 1050 ml Balance -1025 ml 615 ml -400 ml 2105 ml Intake Oral 100 ml 500 ml IV Total 615 ml 100 ml 3155 ml Output Urine Total 825 ml 1000 ml 1050 ml Stool Total 300 ml # Bowel Movements 1 2 Result Diagram: 12/20/1763212/20/17632 Objective Remarks GENERAL: This is a well-nourished, well-developed patient, lethargic CARDIOVASCULAR: RRR, no gallops, or rubs. RESPIRATORY: Fair air entry bilaterally. GASTROINTESTINAL: Abdomen soft, non-tender, nondistended. Positive bowel sounds MUSCULOSKELETAL: Extremities without clubbing, cyanosis, or edema. Pedal pulses appreciated NEUROLOGICAL: Lethargic and confused not answering questions A/P Problem List: (1) Headache ICD Code: R51 - Headache (2) Acute respiratory failure ICD Code: J96.00 - Acute respiratory failure, unspecified whether with hypoxia or hypercapnia (3) Cholelithiasis ICD Code: K80.20 - Calculus of gallbladder without cholecystitis without obstruction (4) Umbilical hernia ICD Code: K42.9 - Umbilical hernia without obstruction or gangrene (5) Renal cyst, right ICD Code: N28.1 - Cyst of kidney, acquired (6) BPH (benign prostatic hyperplasia) ICD Code: N40.0 - Benign prostatic hyperplasia without lower urinary tract symptoms (7) Anticoagulant long-term use ICD Code: Z79.01 - retirement (current) use of anticoagulants (8) Essential hypertension ICD Code: I10 - Essential (primary) hypertension (9) Gastroesophageal reflux disease ICD Code: K21.9 - Gastro-esophageal reflux disease without esophagitis (10) Atrial fibrillation ICD Code: I48.91 - Unspecified atrial fibrillation (11) History of CVA (cerebrovascular accident) ICD Code: Z86.73 - Personal history of transient ischemic attack (TIA), and cerebral infarction without residual deficits (12) Aneurysm of infrarenal abdominal aorta ICD Code: I71.4 - Abdominal aortic aneurysm, without rupture (13) Dyslipidemia ICD Code: E78.5 - Hyperlipidemia, unspecified (14) Depression ICD Code: F32.9 - Major depressive disorder, single episode, unspecified (15) Altered mental status ICD Code: R41.82 - Altered mental status, unspecified Status: Acute Assessment and Plan 12/18: 2D echo 50% EF with severe TR increased pulmonary pressure, continue current care I recommended CBI if urine hematuria not improving will consult urology, continue monitoring in ICU, monitor blood pressure for permissive hypertension, appreciate neurology consultation 12/19: More confused today will apply CIWA protocol, stat BMP ammonia level and lactic acid level, close monitoring discussed with the nurse, start blood pressure control Sputum culture positive for Klebsiella pneumonia patient is on Zosyn and Vanco 12/20: Patient totally confused and lethargic today, I will DC CIWA protocol since his significant other who lives with him informed me that 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 we will give hydralazine and Vasotec IV alternatively, will notify neurology A/P: History of right cerebellar CVA 2012 Depressive disorder NOS Acute left basal ganglia lacunar CVA Currently a propofol/Midazolam and fentanyl drips for sedation/analgesia while intubated Goal of RASS -2 Daily sedation vacation Holding escitalopram 10 mg p.o. daily/home medication for depression MRI brain revealed old right cerebellar infarct. Left basal ganglia perfusion possible acute infarct. Evaluated by Dr. Mitchell/neurology Recommended resuming apixaban 5 mg twice daily Continue atorvastatin 40 mg by tube daily/lipid-lowering agent Check hemoglobin A1c/lipid profile- pending 2D echocardiogram ordered EEG performed at [place] question eduard. Await results History of atrial fibrillation status post ablation Hypertension Dyslipidemia History of infrarenal AAA 2D echocardiogram CT abdomen/pelvis revealed 3.5-3.9 cm infrarenal AAA. Left iliac 2.4 cm. Right iliac 1.8 cm. No signs of rupture or leakage Holding home medications metoprolol succinate 50 mg by tube daily resume lisinopril 5 mg in the at twice daily for hypertension Continue amiodarone 200 mg by tube daily continue digoxin 0.125 mg by tube daily.12/17 Digoxin level 1.0 Acute respiratory failure Bilateral pneumonia with Klebsiella pneumoniae [facility] 16/550/09/05/49 Ventilator bundle Albuterol/ipratropium aerosols every 6 hours with albuterol aerosols every 2 hours. Dyspnea Spontaneous breathing trials daily 12/17 CXR -There is mild bibasilar consolidation again noted, not significantly changed on the left and moderately worse on the right. A small left pleural effusion. Gastroesophageal reflux disease OGT to LIWS Lansoprazole for GI prophylaxis. On omeprazole 20 mg daily at home Docusate sodium/senna 1 tablet twice daily for bowel regimen Transaminases within normal limits BPH Okay for Ku catheter. Cannot give tamsulosin 0.8 mg by tube at night due to unable to place but Endo: Elevated TSH 4.09 Free T3/T4 - 1.4 /1.25 Sliding scale insulin with Novulin R with Accu-Cheks every 6 hours to maintain euglycemia/medium regimen Hemoglobin A1c 6.3 Chronic apixaban use 5 mg twice daily CBC currently within normal limits Recheck CBC and coags in a.m. 12/17 Resumed apixaban 5 mg twice daily per neurology's recommendation MSK: PT/OT evaluate and treat FEN: Electrolyte derangement Replace electrolytes as clinically indicated per ICU electrolyte protocol Repletion of potassium 40 meq this am Access -Utilize peripheral IV. Central line if indicated Prophylaxis -GI -lansoprazole -DVT -SCD/holding apixaban pending possible lumbar puncture 24 hours Problem Qualifiers (1) Headache: Qualified Codes: R51 - Headache (2) Acute respiratory failure: Qualified Codes: J96.00 - Acute respiratory failure, unspecified whether with hypoxia or hypercapnia (3) Cholelithiasis: Qualified Codes: K80.80 - Other cholelithiasis without obstruction (4) Umbilical hernia: Qualified Codes: K42.9 - Umbilical hernia without obstruction or gangrene (5) BPH (benign prostatic hyperplasia): Qualified Codes: N40.0 - Benign prostatic hyperplasia without lower urinary tract symptoms (6) Gastroesophageal reflux disease: Qualified Codes: K21.9 - Gastro-esophageal reflux disease without esophagitis (7) Atrial fibrillation: Qualified Codes: I48.2 - Chronic atrial fibrillation (8) Depression: Qualified Codes: F33.9 - Major depressive disorder, recurrent, unspecified (9) Altered mental status: Qualified Codes: R40.2431 - [place] coma scale score 3-8, in the field [emt or ambulance] Darlene Blake MD Dec 20, 2017 15:51
--- NOTE | 2017-12-20 17:01 | MB ---
cc: Beltran Patel MD, Evan M MD DATE: 12/20/2017 REASON FOR CONSULTATION: Gross hematuria following traumatic Ku catheter removal. HISTORY OF PRESENT ILLNESS: The patient is a 77-year-old male with history of CVA, atrial fibrillation on Eliquis, who came in on 12/16 unresponsive after he was visiting a friend and developed sudden severe headache and became unresponsive. In the ER, he became very combative and was intubated. He had a known AAA. At the time of admission, he had a CT of the abdomen and pelvis, which showed his known AAA as well a right renal cyst. He apparently had been improving daily up until last night when he became acutely confused and combative. In doing so, he traumatically ripped out his Ku catheter. He started passing clots and blood in his urine. A 24 Uzbek coude was then inserted and was started on continuous bladder irrigation and his urine has since cleared. The patient, due to his altered mental status, is a poor historian. All information is from the records and nursing staff. He did have a urine culture 2 days ago, which was subsequently negative. There is no record of any kidney stones or genitourinary malignancies. REVIEW OF SYSTEMS: Unobtainable due to the patient's condition. PAST MEDICAL HISTORY: Significant for atrial fibrillation, BPH, stroke, GERD, hypertension, atrial fibrillation, dyslipidemia. FAMILY HISTORY: There is no evidence of urolithiasis or genitourinary malignancies. MEDICATIONS: 1. Eliquis 5 mg p.o. daily. 2. Digoxin 0.125 mg daily. 3. Lisinopril 5 mg daily. 4. Tamsulosin 0.8 mg p.o. daily 5. Toprol 150 mg p.o. daily. PAST SURGICAL HISTORY: Status post AAA repair, left rotator cuff repair. He has had a heart ablation. SOCIAL HISTORY: Denies any alcohol or illicit drug use. He did quit smoking 4 years ago. He is . PHYSICAL EXAMINATION: VITAL SIGNS: Temperature 97.8, pulse 61, respiration rate 11, BP 166/81, sat 98% on room air. GENERAL: He is alert but confused, disoriented, no apparent distress. HEENT: Head is normocephalic, atraumatic. Eyes: No scleral icterus. Extraocular muscles intact. NECK: Supple. Trachea is midline. No JVD. LUNGS: Clear to auscultation bilaterally. No wheezes, rales or rhonchi. HEART: Regular rate and rhythm. No murmurs, gallops, rubs. ABDOMEN: Soft, nontender, nondistended, positive bowel sounds. GENITOURINARY: His penis is circumcised. Testes descended bilaterally, normal in size and consistency without mass. RECTAL EXAM: Not indicated. EXTREMITIES: Nontender. No clubbing, cyanosis or edema. At 24 Uzbek coude catheter is currently draining crystal clear urine on a light CBI drip. SKIN: No ulcers or rashes. It is warm and dry. NEUROLOGIC: Cranial nerves 2-12 intact. Strength 5/5 all 4 extremities. LABORATORY DATA: White count 10.9, hemoglobin 13.8, hematocrit 40.6, platelet count 138. Sodium 144, potassium 3.0, chloride 109, bicarbonate 25, BUN 12, creatinine 0.7. Urine culture on 12/17 was negative. RADIOLOGY STUDIES: CT abdomen and pelvis with and without contrast images reviewed. Agree with radiologist report. the patient has a simple right renal cyst. No evidence of kidney stones, hydronephrosis or mass. Does have an enlarged prostate. ASSESSMENT: The patient is a 77-year-old male with history of stroke and atrial fibrillation, who was admitted after sudden loss of consciousness who subsequently developed altered mental status and gross hematuria after traumatically removing his Ku catheter. PLAN: 1. Recommend continuing the 24-U[address] catheter and weaning the CBI. Hematuria likely a result of the traumatic removal of the Ku catheter. No acute genitourinary intervention needed at this time is he is hemodynamically stable and his hemoglobin is approximately 14. 2. The CT was negative for any upper tract etiology for blood in his urine. He will require cystoscopy as an outpatient to rule out any other cause of the blood in his urine. Continue tamsulosin 0.8 mg daily. Thank you for this consult. Please call if any questions. Available as needed. MD TAYLOR Goodman/ , 04:11 PM , 05:01 PM
[2017-12-20] MEDS: LISINOPRIL 10 MG TAB PO SCH (20:41)
[2017-12-20] MEDS: VANCOMYCIN INJ 1,500 MG in SODIUM CHLORID 0.9% 500 ML INJ 500 ML IV SCH (23:02)
[2017-12-21] VITALS (9 sets, daily range): BP systolic 159–177; BP diastolic 75–100; PULSE 66–108; RESP 15–31; TEMP 97.9–98.2; O2SAT 92–100
[2017-12-21] MEDS: CEFEPIME INJ 2,000 MG in SODIUM CHLORIDE 0.9% INJ 100 ML IV SCH ×3 (01:10→16:04)
[2017-12-21] MEDS: CHLORHEXIDINE GLUCONATE 2 % 1 PACK (2 CLOTHS) TOP SCH (03:39)
[2017-12-21] MEDS: SODIUM CHLOR 0.9% 1000 ML INJ 1,000 ML IV SCH ×2 (03:39→16:32)
[2017-12-21] MEDS: POTASSIUM CHLOR 20 MEQ PREMIX 100 ML IV PRN ×5 (04:10→13:10)
[2017-12-21] MEDS: CARBOXYMETHYLCELL SOD 0.5% OPTH SOLN 15 ML BTL EACH EYE SCH ×3 (05:52→21:05)
[2017-12-21] MEDS: INSULIN NovoLIN REGULAR SUPPLEMENTAL SCALE SQ SCH ×3 (05:52→18:00)
[2017-12-21 05:55] LABS: AUTOMATED NEUTROPHIL # 8.4 TH/MM3 (1.8-7.7); BASOPHIL % 0.3 % (0.0-2.0); EOSINOPHIL # 0.1 TH/MM3 (0-0.4); EOSINOPHIL % 1.2 % (0.0-4.0); HEMATOCRIT 40.8 % (39.0-51.0); HEMOGLOBIN 13.9 GM/DL (13.0-17.0); LYMPH % 3.1 % (9.0-44.0); LYMPHOCYTE # 0.3 TH/MM3 (1.0-4.8); MEAN CELL VOLUME 92.1 FL (80.0-100.0); MEAN CORPUSCULAR HEMOGLOBIN 31.4 PG (27.0-34.0); MEAN PLATELET VOLUME 9.7 FL (7.0-11.0); MONO % 12.3 % (0.0-8.0); MONOCYTE # 1.2 TH/MM3 (0-0.9); NEUT % 83.1 % (16.0-70.0); PLATELET COUNT 161 TH/MM3 (150-450); RED BLOOD COUNT 4.43 MIL/MM3 (4.50-5.90); RED CELL DISTRIBUTION WIDTH 14.7 % (11.6-17.2); WHITE BLOOD COUNT 10.1 TH/MM3 (4.0-11.0)
[2017-12-21 06:20] LABS: CALCIUM 8.6 MG/DL (8.5-10.1); CREATININE 0.71 MG/DL (0.60-1.30)
[2017-12-21] MEDS: POTASSIUM PHOSPHATE MONOBASIC 500 MG TAB PO SCH ×2 (08:29→20:30)
[2017-12-21] MEDS: METOPROLOL SUCCINATE 50 MG EXTENDED RELEASE TAB PO SCH (08:29)
[2017-12-21] MEDS: AZITHROMYCIN INJ 500 MG in SODIUM CHLOR 0.9% 250 ML INJ 250 ML IV SCH (08:29)
[2017-12-21] MEDS: APIXABAN 5 MG TABLET PO SCH ×2 (08:30→20:30)
[2017-12-21] MEDS: LANSOPRAZOLE SOLUTAB 30 MG TAB NG SCH (08:30)
[2017-12-21] MEDS: DIGOXIN 0.125 MG TAB PO SCH (08:30)
[2017-12-21] MEDS: ATORVASTATIN 40 MG TAB PO SCH (08:30)
[2017-12-21] MEDS: ASPIRIN EC 81 MG TABEC PO SCH (08:30)
[2017-12-21] MEDS: SODIUM CHLORIDE 0.9% FLUSH 10 ML FLUSH IV FLUSH SCH ×2 (08:30→20:30)
[2017-12-21] MEDS: DOCUSATE SODIUM 50 MG/SENNA 8.6 MG TAB PO SCH ×2 (08:31→20:30)
[2017-12-21] MEDS: LISINOPRIL 10 MG TAB PO SCH ×3 (08:31→20:30)
[2017-12-21] MEDS: AMIODARONE 200 MG TAB PO SCH (09:47)
--- NOTE | 2017-12-21 09:59 | MB ---
cc: Adriana Lynne MD DATE: 12/21/2017 HISTORY OF PRESENT ILLNESS: He is a 77-year-old seen in consultation due to altered mentation. He has been in the hospital since 12/16/2017. Apparently, he became unresponsive with the development of a headache and he was combative, intubated in the emergency room, but he is now extubated. There is a history of a prior stroke and atrial fibrillation on Eliquis. The patient has had a number of imaging studies of the brain, which will be discussed later on. NEUROLOGIC EXAMINATION: On exam, he was asleep, but awakened and surprised to see that he was fairly alert, pleasant, cooperative, and followed commands. He moved all 4 extremities. Gripped fairly strongly. He has wrist and the leg restraints as he has been pulling IVs, Ku catheter, etc. He did converse. He knows the name of the place, new his age and seemed to be grossly oriented to the date as well. He has a slight right facial asymmetry but there was no aphasia. His reflexes were present, but diminished at the elbows and knees, unsure of about responses at the ankles and plantar responses were flexor. ASSESSMENT/PLAN: 1. Metabolic encephalopathy, resolving. He received Ativan yesterday and it is now on hold. He may have worsening of his encephalopathy and the plan is to hold off sedation. 2. History of a stroke with atrial fibrillation history. He is on Eliquis 5 mg twice a day and aspirin. 3. Sepsis, on antibiotics. The hypertensive disorder with some intermittent spiking of blood pressure. The patient had a brain MRI on 12/16/2017 showing old right cerebellar infarct. Possible punctate lacunar in the left basal ganglia is an acute finding. Microvascular disease. A CT brain in followup yesterday showing stable chronic change, no acute process. Monitor neurological course. An EEG on 12/16/2017 showed mild diffuse abnormality, but no epileptiform features. I will follow the neurological course. Thank you for asking us to assist in his care. Adriana Lynne MD OFC/TL , 09:22 AM , 09:58 AM
--- NOTE | 2017-12-21 11:39 | PD.PN.STU ---
Subjective Remarks The patient is a 77 y/o male with a hx of hypertension, alcohol abuse, COPD, BPH , infrarenal AAA, hyperlipidemia, hx of CVA who complained to a friend of a sever headache and then became unresponsive. The patient was intubated and sedated and had a negative CT. He is now extubated and this morning appears very alert and oriented. He is able to have meaningful discussion but provide limited history because he does not remember the event. He does not remember falling or being found by his neighbors. He remembers waking up in the hospital very confused about where is was. He reports that they have him in restraints because he was getting aggressive when he was confused, mostly at night. He denies abdominal pain, chest pain, SOB, nausea, vomiting, constipation, diarrhea , or body aches. Objective Vitals Vital Signs Date Time Temp Pulse Resp B/P (MAP) Pulse Ox O2 Delivery O2 Flow Rate FiO2 12/21/17 08:00 85 12/21/17 08:00 98.0 78 23 177/92 (120) 92 12/21/17 07:57 98 21 12/21/17 04:00 66 12/21/17 04:00 98.2 66 16 166/95 (118) 100 12/21/17 02:00 93 12/21/17 00:00 97.9 76 17 160/75 (103) 100 12/21/17 00:00 76 12/20/17 22:00 82 12/20/17 20:45 96 Nasal Cannula 4.00 12/20/17 20:00 95 12/20/17 20:00 98.1 95 17 179/91 (120) 96 12/20/17 18:00 75 12/20/17 16:00 97.0 79 20 173/83 (113) 98 12/20/17 16:00 79 12/20/17 14:00 61 12/20/17 12:00 97.8 61 11 166/81 (109) 99 I/O 12/20/17 12/20/17 12/20/17 12/21/17 12/21/17 12/21/17 07:00 15:00 23:00 07:00 15:00 23:00 Intake Total 3155 ml 6112 ml 1735 ml 350 ml Output Total 1050 ml 6450 ml 1500 ml Balance 2105 ml -338 ml 235 ml 350 ml Intake Oral 20 ml IV Total 3155 ml 2512 ml 1715 ml 350 ml Other 3600 ml Output Urine Total 1050 ml 6450 ml 1500 ml # Bowel Movements 0 0 Result Diagram: 12/21/1753112/21/17531 Objective Remarks General: A WDWN male in four point restrains and in no acute distress. Skin: Warm and Dry HEENT: no icterus or injection of the eyes, oral mucosa is pink and moist, no lymphadenopathy Cardio: Normal rate and rhythm, no murmurs, gallops, or rubs, sinus tach by bedside telemetry Pulmonary: Diminished breath sounds with mild expiratory wheezes B/L Extremities: no edema or cyanosis Neuro: Alert and oriented to person place or time, strength of extremities is 5/ 5, sensation is intact B/L, no obvious CN deficits A/P Assessment and Plan Neuro -his AMS appears to be improving based on collateral from the nursing staff, he is oriented x3 at the moment of exam -Neurology is following and thinks that this is metabolic and not secondary to a new CVA -Magnesium, Phosphorous and potassium were low and are being replaced -Will order RPR, B12, Folate, and thiamine -Apixaban has been resumed per neurology -Atorvastatin 40mg has been restarted -MRI showed possible left lacunar infarct -Patient was on CIWA due to unclear hx of alcohol abuse but the CIWA has been discontinued because the benzodiazepines likely caused him to be altered. Endocrine -TSH was elevated and T3 was low, T4 normal -Sliding scale insulin with Accu-Cheks CV -Hydralazine and Vasotec IV PRN for Systolic >160 -Echo showed EF of 50-55% -BP control should be closely monitored due to AAA -CT abdomen/pelvis revealed 3.5-3.9 cm infrarenal AAA. Left iliac 2.4 cm. Right iliac 1.8 cm. No signs of rupture or leakage Pulm -Duoneb Q6 hours PRN for wheezing -Albuterol PRN for rescue GI/Uro -Lansoprazole for GI prophylaxis -Docusate sodium/senna 1 tablet twice daily for bowel regimen -Patient pulled out Ku causing urethral trauma and now has bladder irrigation tube in Daljit Patton M3 Dec 21, 2017 11:39
[2017-12-21] MEDS: VANCOMYCIN INJ 1,500 MG in SODIUM CHLORID 0.9% 500 ML INJ 500 ML IV SCH (13:56)
--- NOTE | 2017-12-21 14:08 | HHI.PR ---
Subjective Remarks Patient is much better as far as mental status he is awake alert oriented, sitting in bed i Discussed with the significant other and with the nurse, appreciate neurology recommendation, MRI did not revealed acute issue, will continue antibiotic for pneumonia consider consulting ID Objective Vitals Vital Signs Date Time Temp Pulse Resp B/P (MAP) Pulse Ox O2 Delivery O2 Flow Rate FiO2 12/21/17 12:00 74 12/21/17 12:00 98.0 74 29 159/87 (111) 98 12/21/17 08:00 85 12/21/17 08:00 98.0 78 23 177/92 (120) 92 12/21/17 07:57 98 21 12/21/17 04:00 66 12/21/17 04:00 98.2 66 16 166/95 (118) 100 12/21/17 02:00 93 12/21/17 00:00 97.9 76 17 160/75 (103) 100 12/21/17 00:00 76 12/20/17 22:00 82 12/20/17 20:45 96 Nasal Cannula 4.00 12/20/17 20:00 95 12/20/17 20:00 98.1 95 17 179/91 (120) 96 12/20/17 18:00 75 12/20/17 16:00 97.0 79 20 173/83 (113) 98 12/20/17 16:00 79 I/O 12/20/17 12/20/17 12/20/17 12/21/17 12/21/17 12/21/17 07:00 15:00 23:00 07:00 15:00 23:00 Intake Total 3155 ml 6112 ml 1735 ml 350 ml Output Total 1050 ml 6450 ml 1500 ml Balance 2105 ml -338 ml 235 ml 350 ml Intake Oral 20 ml IV Total 3155 ml 2512 ml 1715 ml 350 ml Other 3600 ml Output Urine Total 1050 ml 6450 ml 1500 ml # Bowel Movements 0 0 Result Diagram: 12/21/1753112/21/17531 Objective Remarks GENERAL: This is a well-nourished, well-developed patient, lethargic CARDIOVASCULAR: RRR, no gallops, or rubs. RESPIRATORY: Fair air entry bilaterally. GASTROINTESTINAL: Abdomen soft, non-tender, nondistended. Positive bowel sounds MUSCULOSKELETAL: Extremities without clubbing, cyanosis, or edema. Pedal pulses appreciated NEUROLOGICAL: Lethargic and confused not answering questions A/P Problem List: (1) Headache ICD Code: R51 - Headache (2) Acute respiratory failure ICD Code: J96.00 - Acute respiratory failure, unspecified whether with hypoxia or hypercapnia (3) Cholelithiasis ICD Code: K80.20 - Calculus of gallbladder without cholecystitis without obstruction (4) Umbilical hernia ICD Code: K42.9 - Umbilical hernia without obstruction or gangrene (5) Renal cyst, right ICD Code: N28.1 - Cyst of kidney, acquired (6) BPH (benign prostatic hyperplasia) ICD Code: N40.0 - Benign prostatic hyperplasia without lower urinary tract symptoms (7) Anticoagulant long-term use ICD Code: Z79.01 - supervisor intermediates (current) use of anticoagulants (8) Essential hypertension ICD Code: I10 - Essential (primary) hypertension (9) Gastroesophageal reflux disease ICD Code: K21.9 - Gastro-esophageal reflux disease without esophagitis (10) Atrial fibrillation ICD Code: I48.91 - Unspecified atrial fibrillation (11) History of CVA (cerebrovascular accident) ICD Code: Z86.73 - Personal history of transient ischemic attack (TIA), and cerebral infarction without residual deficits (12) Aneurysm of infrarenal abdominal aorta ICD Code: I71.4 - Abdominal aortic aneurysm, without rupture (13) Dyslipidemia ICD Code: E78.5 - Hyperlipidemia, unspecified (14) Depression ICD Code: F32.9 - Major depressive disorder, single episode, unspecified (15) Altered mental status ICD Code: R41.82 - Altered mental status, unspecified Status: Acute Assessment and Plan 12/18: 2D echo 50% EF with severe TR increased pulmonary pressure, continue current care I recommended CBI if urine hematuria not improving will consult urology, continue monitoring in ICU, monitor blood pressure for permissive hypertension, appreciate neurology consultation 12/19: More confused today will apply CIWA protocol, stat BMP ammonia level and lactic acid level, close monitoring discussed with the nurse, start blood pressure control 12/20: Patient totally confused and lethargic today, I will DC CIWA protocol since his significant other who lives with him informed me that 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 we will give hydralazine and Vasotec IV alternatively, will notify neurology 12/21: Patient is much better as far as mental status he is awake alert oriented , sitting in bed, discussed with the significant other and with the nurse, appreciate neurology recommendation, MRI did not revealed acute issue, will continue antibiotic for pneumonia consider consulting ID A/P: History of right cerebellar CVA 2012 Depressive disorder NOS Acute left basal ganglia lacunar CVA Currently a propofol/Midazolam and fentanyl drips for sedation/analgesia while intubated Goal of RASS -2 Daily sedation vacation Holding escitalopram 10 mg p.o. daily/home medication for depression MRI brain revealed old right cerebellar infarct. Left basal ganglia perfusion possible acute infarct. Evaluated by Dr. Mitchell/neurology Recommended resuming apixaban 5 mg twice daily Continue atorvastatin 40 mg by tube daily/lipid-lowering agent Check hemoglobin A1c/lipid profile- pending 2D echocardiogram ordered EEG performed at [place] question eduard. Await results History of atrial fibrillation status post ablation Hypertension Dyslipidemia History of infrarenal AAA 2D echocardiogram CT abdomen/pelvis revealed 3.5-3.9 cm infrarenal AAA. Left iliac 2.4 cm. Right iliac 1.8 cm. No signs of rupture or leakage Holding home medications metoprolol succinate 50 mg by tube daily resume lisinopril 5 mg in the at twice daily for hypertension Continue amiodarone 200 mg by tube daily continue digoxin 0.125 mg by tube daily.12/17 Digoxin level 1.0 Acute respiratory failure PRVC 16/550/1/5/50 Ventilator bundle Albuterol/ipratropium aerosols every 6 hours with albuterol aerosols every 2 hours. Dyspnea Spontaneous breathing trials daily 12/17 CXR -There is mild bibasilar consolidation again noted, not significantly changed on the left and moderately worse on the right. A small left pleural effusion. Gastroesophageal reflux disease OGT to [facility] Lansoprazole for GI prophylaxis. On omeprazole 20 mg daily at home Docusate sodium/senna 1 tablet twice daily for bowel regimen Transaminases within normal limits BPH Okay for Ku catheter. Cannot give tamsulosin 0.8 mg by tube at night due to unable to place but Endo: Elevated TSH 4.09 Free T3/T4 - 1.4 /1.25 Sliding scale insulin with Novulin R with Accu-Cheks every 6 hours to maintain euglycemia/medium regimen Hemoglobin A1c 6.3 Chronic apixaban use 5 mg twice daily CBC currently within normal limits Recheck CBC and coags in a.m. 12/17 Resumed apixaban 5 mg twice daily per neurology's recommendation MSK: PT/OT evaluate and treat FEN: Electrolyte derangement Replace electrolytes as clinically indicated per ICU electrolyte protocol Repletion of potassium 40 meq this am Access -Utilize peripheral IV. Central line if indicated Prophylaxis -GI -lansoprazole -DVT -SCD/holding apixaban pending possible lumbar puncture 24 hours Problem Qualifiers (1) Headache: Qualified Codes: R51 - Headache (2) Acute respiratory failure: Qualified Codes: J96.00 - Acute respiratory failure, unspecified whether with hypoxia or hypercapnia (3) Cholelithiasis: Qualified Codes: K80.80 - Other cholelithiasis without obstruction (4) Umbilical hernia: Qualified Codes: K42.9 - Umbilical hernia without obstruction or gangrene (5) BPH (benign prostatic hyperplasia): Qualified Codes: N40.0 - Benign prostatic hyperplasia without lower urinary tract symptoms (6) Gastroesophageal reflux disease: Qualified Codes: K21.9 - Gastro-esophageal reflux disease without esophagitis (7) Atrial fibrillation: Qualified Codes: I48.2 - Chronic atrial fibrillation (8) Depression: Qualified Codes: F33.9 - Major depressive disorder, recurrent, unspecified (9) Altered mental status: Qualified Codes: R40.2431 - [place] coma scale score 3-8, in the field [emt or ambulance] Darlene Blake MD Dec 21, 2017 14:08
[2017-12-21] MEDS: RESP: ALBUTEROL 2.5 MG/3 ML NEB (PRN) NEB (20:31)
[2017-12-21] MEDS ORDERED: PHARMACY ORDERED LAB ONE (23:45)
[2017-12-22] VITALS (9 sets, daily range): BP systolic 159–174; BP diastolic 81–99; PULSE 58–108; RESP 18–33; TEMP 97.6–98.4; O2SAT 95–98
[2017-12-22] MEDS: CEFEPIME INJ 2,000 MG in SODIUM CHLORIDE 0.9% INJ 100 ML IV SCH ×2 (00:05→10:37)
[2017-12-22] MEDS: VANCOMYCIN INJ 1,500 MG in SODIUM CHLORID 0.9% 500 ML INJ 500 ML IV SCH (01:41)
[2017-12-22] MEDS: CHLORHEXIDINE GLUCONATE 2 % 1 PACK (2 CLOTHS) TOP SCH (04:00)
[2017-12-22] MEDS: SODIUM CHLOR 0.9% 1000 ML INJ 1,000 ML IV SCH (04:27)
[2017-12-22] MEDS: INSULIN NovoLIN REGULAR SUPPLEMENTAL SCALE SQ SCH ×4 (05:26→18:00)
[2017-12-22] MEDS: CARBOXYMETHYLCELL SOD 0.5% OPTH SOLN 15 ML BTL EACH EYE SCH ×3 (05:28→21:58)
[2017-12-22] MEDS: AZITHROMYCIN INJ 500 MG in SODIUM CHLOR 0.9% 250 ML INJ 250 ML IV SCH (10:36)
[2017-12-22] MEDS: SODIUM CHLORIDE 0.9% FLUSH 10 ML FLUSH IV FLUSH SCH ×2 (10:37→21:58)
[2017-12-22] MEDS: LANSOPRAZOLE SOLUTAB 30 MG TAB NG SCH (10:37)
[2017-12-22] MEDS: DIGOXIN 0.125 MG TAB PO SCH (10:38)
[2017-12-22] MEDS: POTASSIUM PHOSPHATE MONOBASIC 500 MG TAB PO SCH ×2 (10:38→21:57)
[2017-12-22] MEDS: APIXABAN 5 MG TABLET PO SCH ×2 (10:38→21:57)
[2017-12-22] MEDS: AMIODARONE 200 MG TAB PO SCH (10:38)
[2017-12-22] MEDS: METOPROLOL SUCCINATE 50 MG EXTENDED RELEASE TAB PO SCH (10:38)
[2017-12-22] MEDS: ATORVASTATIN 40 MG TAB PO SCH (10:39)
[2017-12-22] MEDS: ASPIRIN EC 81 MG TABEC PO SCH (10:39)
[2017-12-22] MEDS: DOCUSATE SODIUM 50 MG/SENNA 8.6 MG TAB PO SCH ×2 (10:39→21:00)
--- NOTE | 2017-12-22 13:48 | PD.PN.STU ---
Subjective Remarks The patient had an overnight episode of trying to pull out his Ku. Per the nurse, he spent the night in 4 point restraints. He seems less oriented today as compared to yesterday. He is oriented to person but not time or place. He has no complaints and denies any abdominal pain, chest pain, SOB, cough, fever, or chills. Objective Vitals Vital Signs Date Time Temp Pulse Resp B/P (MAP) Pulse Ox O2 Delivery O2 Flow Rate FiO2 12/22/17 08:34 96 Nasal Cannula 2.00 12/22/17 04:00 73 12/22/17 04:00 98.0 73 33 163/99 (120) 12/22/17 00:00 97.6 70 21 174/88 (116) 12/22/17 00:00 70 12/21/17 20:31 97 Nasal Cannula 2.00 12/21/17 20:00 86 12/21/17 20:00 98.1 86 31 162/100 (120) 12/21/17 16:00 98.0 108 15 159/96 (117) 95 12/21/17 16:00 88 I/O 12/21/17 12/21/17 12/21/17 12/22/17 12/22/17 12/22/17 07:00 15:00 23:00 07:00 15:00 23:00 Intake Total 1735 ml 350 ml 3753 ml 600 ml Output Total 1500 ml 1200 ml 1600 ml Balance 235 ml 350 ml 2553 ml -1000 ml Intake Oral 20 ml 720 ml IV Total 1715 ml 350 ml 3033 ml 600 ml Output Urine Total 1500 ml 1200 ml 1600 ml # Bowel Movements 0 0 Result Diagram: 12/21/17 0532 12/21/17 1855 Objective Remarks General: A WDWN male in four point restrains and in no acute distress. Skin: Warm and Dry HEENT: no icterus or injection of the eyes, oral mucosa is pink and moist, no lymphadenopathy Cardio: Normal rate and rhythm, no murmurs, gallops, or rubs, sinus tach by bedside telemetry Pulmonary: Diminished breath sounds with mild expiratory wheezes B/L Extremities: no edema or cyanosis : Has blood on his Ku bag Neuro: Alert and oriented to person but not place or time,, strength of extremities is 5/5, sensation is intact B/L, CN 2-12 grossly intact A/P Assessment and Plan The patient continues to have a waxing and waning mental status that seems to be worse over night and improve in the morning. Workup so far has only been notable for the acute left basal ganglia lacunar CVA Hx of right cerebellar CVA in 2012 Major Depressive disorder NOS Acute left basal ganglia lacunar cerebral vascular accident -his AMS appears to be waxing and waning- the nursing staff reports various incidents more often at night such as attempting to pull out his Ku -Neurology/Dr. Mitchell is following and thinks that this is metabolic and not secondary to a new CVA -Magnesium, Phosphorous and potassium were low and are being replaced -RPR, B12, Folate, and thiamine were normal -Apixaban has been resumed per neurology -Atorvastatin 40mg has been restarted -MRI brain revealed old right cerebellar infarct. Left basal ganglia perfusion possible acute infarct. -Patient was on CIWA due to unclear hx of alcohol abuse but the CIWA has been discontinued because the benzodiazepines could be causing altered mental status- has been sober for 6 years -consult Urology and order a UA to look for UTI -Patient is currently on Cefepime and ID recommends changing to PO Levaquin Elevated TSH -TSH was elevated and T3 was low, T4 normal -Sliding scale insulin with Accu-Cheks -Hemoglobin A1c 6.3 History of atrial fibrillation status post ablation Hypertension Dyslipidemia History of infrarenal AAA -Hydralazine and Vasotec IV PRN for Systolic >160 -Echo showed EF of 50-55% -BP control should be closely monitored due to AAA -CT abdomen/pelvis revealed 3.5-3.9 cm infrarenal AAA. Left iliac 2.4 cm. Right iliac 1.8 cm. No signs of rupture or leakage -Continue amiodarone 200 mg daily PO and continue digoxin 0.125 mg PO daily COPD -Duoneb Q6 hours PRN for wheezing -Albuterol PRN for rescue Gastroesophageal reflux disease Benign Prostate Hypertrophy Hematuria -Lansoprazole for GI prophylaxis -Docusate sodium/senna 1 tablet twice daily for bowel regimen -Hematuria likely due to urethral trauma from pulling out his Ku multiple times per the urologist/ Dr. Patel -urologist recommends outpatient cystoscopy to rule out other causes and to continue his tamsulosin 0.8mg daily Prophylaxis -GI -lansoprazole -DVT -Apixaban Medical attending attestation: Patient seen and examined with the medical status and the nurse at the bedside He is worse than yesterday, awake alert he can mention his name but otherwise is confused, and four-point restrain He is again tried to pull out his Ku catheter Urine slightly clear but still on the darker side, patient gets agitated occasionally GENERAL: This is a well-nourished, well-developed patient, in no apparent distress. CARDIOVASCULAR: RRR, no gallops, or rubs. RESPIRATORY: Fair air entry bilaterally. No W, R, or R GASTROINTESTINAL: Abdomen soft, non-tender, nondistended. Positive bowel sounds MUSCULOSKELETAL: Extremities without clubbing, cyanosis, or edema. Pedal pulses appreciated NEUROLOGICAL: Awake and alert oriented to his name only otherwise confused, noncoherent speech Agree with above assessment and plan, will consider psychiatry consultation if continue to have confusion and urology if hematuria does not resolve, appreciate ID consultation switched to Levaquin at discharge Reevaluate in a.dee dee. Daljit Patton Dec 22, 2017 13:48 Darlene Blake MD Dec 22, 2017 19:00
--- NOTE | 2017-12-22 15:59 | PD.CONS ---
History of Present Illness Service Infectious disease Consult Requested By Dr Blake Reason for Consult Evaluate patient with pneumonia Primary Care Physician Rohit Page MD Diagnoses: History of Present Illness Patient seen and examined. Records reviewed. Patient is a 77-year-old male, brought into the hospital by a friend after he had an acute onset of severe headache followed by unresponsiveness. He was brought to the emergency room he was awake and was very combative. He ended up getting intubated. 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 MRI showed right cerebellar infarct with a left basal ganglia lacunar infarct. MRA did not show any aneurysm. Patient was successfully extubated on December 17 and has remained off the vent. He has had leukocytosis, and culture showed Klebsiella in the sputum. Chest x-ray have shown pulmonary infiltrate Since he was extubated he has had problem on and off with confusion. He had pulled out his Ku catheter and resulted in traumatic hematuria. Patient currently is having bladder irrigation. His Ku has some blood-tinged urine but not gross hematuria. Patient's WBC improved, and his follow-up chest x-ray showed improvement in his infiltrates. He is currently on IV Zosyn. Infectious disease consultation has been requested to evaluate the patient. Review of Systems Constitutional: DENIES: Fever, Chills Eyes: DENIES: Eye pain Ears, nose, mouth, throat: DENIES: Nasal discharge, Oral lesions, Throat pain, Toothache Respiratory: DENIES: Cough, Shortness of breath Cardiovascular: DENIES: Chest pain, Palpitations, Dyspnea on Exertion Gastrointestinal: DENIES: Abdominal pain, Diarrhea, Nausea, Vomiting Genitourinary: COMPLAINS OF: Hematuria Musculoskeletal: DENIES: Neck pain Integumentary: DENIES: Rash Neurologic: COMPLAINS OF: Headache, DENIES: Localized weakness Psychiatric: COMPLAINS OF: Confusion, DENIES: Hallucinations Past Family Social History Allergies: Coded Allergies: No Allergy Information Available (Unverified , 12/16/17) Past Medical History Right renal cyst Depression disorder NOS Dyslipidemia Hypertension/essential Chronic atrial fibrillation BPH Gastroesophageal reflux disease History of CVA 2013 Infrarenal AAA with bilateral iliac aneurysms Past Surgical History 3 AAA repair Left rotator cuff repair Ablation Active Ordered Medications Current Medications Medications (Trade) Dose Ordered Sig/Heladio Route Start Time Stop Time Status Last Admin Sodium Chloride 1,000 ml @ 84 mls/hr [id number] IV 12/16/17 17:22 4/22/18 16:32 (NS Flush) 2 ml UNSCH PRN IV FLUSH 12/16/17 17:30 (NS Flush) 2 ml BID IV FLUSH 12/16/17 21:00 12/22/17 10:37 (Zofran Inj) 4 mg Q6H PRN IV PUSH 12/16/17 17:30 Miscellaneous Information 1 Q361D XX 12/16/17 17:30 12/16/17 20:09 (Chlorhexidine 2% Cloth) Taper DAILY@04 TOP 12/17/17 04:00 12/13/18 03:59 12/22/17 04:00 (Chlorhexidine 2% Cloth) 3 pack UNSCH PRN TOP 12/16/17 17:30 (Oriana-Colace) 1 tab BID PO 12/16/17 21:00 12/22/17 10:39 (Milk Of Magnesia Liq) 30 ml Q12H PRN PO 12/16/17 17:30 (Senokot) 17.2 mg Q12H PRN PO 12/16/17 17:30 (Dulcolax Supp) 10 mg DAILY PRN RECTAL 12/16/17 17:30 (Lactulose Liq) 30 ml DAILY PRN PO 12/16/17 17:30 Propofol 100 ml @ 2.505 mls/ hr TITRATE PRN IV 12/16/17 18:15 12/17/17 06:00 (Albuterol Neb) 2.5 mg Q2HR NEB PRN NEB 12/16/17 18:15 12/21/17 20:31 (Tylenol 650 Mg/ 20 ml Liq) 650 mg Q6H PRN NG 12/16/17 18:15 12/19/17 13:59 (Prevacid Odt) 30 mg DAILY NG 12/17/17 09:00 12/22/17 10:37 (D50w (Vial) Inj) 50 ml UNSCH PRN IV PUSH 12/16/17 18:30 (Glucagon Inj) 1 mg UNSCH PRN OTHER 12/16/17 18:30 (NovoLIN R SUPPLEMENTAL SCALE) 1 Q6HR SQ 12/17/17 00:00 Potassium Chloride 100 ml @ 50 mls/hr Q2H PRN IV 12/16/17 18:30 Potassium Chloride 100 ml @ 50 mls/hr Q2H PRN IV 12/16/17 18:30 12/21/17 13:10 (K-Lyte Cl Eff) 50 meq UNSCH PRN PO 12/16/17 18:30 Potassium Chloride 100 ml @ 25 mls/hr UNSCH PRN IV 12/16/17 18:30 Potassium Chloride 100 ml @ 50 mls/hr Q2H PRN IV 12/16/17 18:30 12/17/17 06:45 Magnesium Sulfate 4 gm/Sodium Chloride 100 ml @ 50 mls/hr UNSCH PRN IV 12/16/17 18:30 (Mag-Ox) 800 mg UNSCH PRN PO 12/16/17 18:30 Magnesium Sulfate 2 gm/Sodium Chloride 100 ml @ 50 mls/hr UNSCH PRN IV 12/16/17 18:30 12/17/17 10:33 (K-Phos) 2,000 mg Q4H PRN PO 12/16/17 18:30 12/17/17 15:42 Sodium Phosphate 30 mmol/Sodium Chloride 250 ml @ 42 mls/hr UNSCH PRN IV 12/16/17 18:30 12/18/17 20:26 (K-Phos) 2,000 mg UNSCH PRN PO/TUBE 12/16/17 18:30 Potassium Phosphate 30 mmol/ Sodium Chloride 260 ml @ 42 mls/hr UNSCH PRN IV 12/16/17 18:30 (Cordarone) 200 mg DAILY PO 12/17/17 09:00 12/22/17 10:38 (Lipitor) 40 mg DAILY PO 12/17/17 09:00 12/22/17 10:39 (Trandate Inj) 10 mg Q1HR PRN IV PUSH 12/16/17 18:30 12/20/17 18:44 (Lanoxin) 0.125 mg DAILY PO 12/17/17 09:00 12/22/17 10:38 Midazolam HCl 100 ml @ 2 mls/hr TITRATE PRN IV 12/16/17 19:15 Fentanyl Citrate 250 ml @ 5 mls/hr TITRATE PRN IV 12/16/17 19:15 (Eliquis) 5 mg BID PO 12/16/17 21:00 12/22/17 10:38 (Refresh Tears 0.5% Opth Soln) 1 drop Q8HR EACH EYE 12/17/17 06:00 12/22/17 05:28 Dexmedetomidine HCl 200 mcg/ Sodium Chloride 52 ml @ 3.9 mls/hr TITRATE PRN IV 12/17/17 07:00 12/17/17 08:30 Cefepime HCl 2000 mg/Sodium Chloride 100 ml @ 200 mls/hr Q8H IV 12/17/17 09:00 12/22/17 10:37 (Ecotrin Ec) 81 mg DAILY PO 12/18/17 09:00 12/22/17 10:39 (Vasotec Inj) 1.25 mg Q6H PRN IV PUSH 12/20/17 11:00 12/20/17 10:27 (Toprol Xl) 50 mg DAILY PO 12/20/17 11:00 12/22/17 10:38 (K-Phos) 500 mg Q12HR PO 12/20/17 11:00 12/23/17 10:59 12/22/17 10:38 (Apresoline Inj) 10 mg Q4H PRN IV PUSH 12/20/17 13:45 12/20/17 20:35 (Prinivil) 20 mg Q12HR PO 12/22/17 21:00 Family History Father from CVA Mother with bladder disorder. Brother with heart disease Social History Currently denies alcohol use. Prior social alcohol use. Quit tobacco 40 years ago. . No illicit drug use documented. Physical Exam Vital Signs Vital Signs Date Time Temp Pulse Resp B/P (MAP) Pulse Ox O2 Delivery O2 Flow Rate FiO2 12/22/17 08:34 96 Nasal Cannula 2.00 12/22/17 08:00 58 12/22/17 08:00 97.8 58 23 163/81 (108) 95 12/22/17 04:00 73 12/22/17 04:00 98.0 73 33 163/99 (120) 12/22/17 00:00 97.6 70 21 174/88 (116) 12/22/17 00:00 70 12/21/17 20:31 97 Nasal Cannula 2.00 12/21/17 20:00 86 12/21/17 20:00 98.1 86 31 162/100 (120) 12/21/17 16:00 98.0 108 15 159/96 (117) 95 12/21/17 16:00 88 Physical Exam GENERAL: Patient is a well-nourished, well-developed male, awake and alert, not in respiratory distress. He is oriented to time place and person. SKIN: Cool and dry. No generalized rash, no ecchymoses and no evidence of embolic lesions. HEAD: Atraumatic. Normocephalic. No temporal wasting, or tenderness. EYES: [place] conjunctiva. No petechia or hemorrhage. Pupils equal, round and reactive to light. Extraocular movements full and intact. No scleral icterus. No injection or drainage. EARS, NOSE AND THROAT: Nose without bleeding or purulent nasal discharge. No sinus tenderness. Mucous membranes pink and moist. No oral lesions noted. No exudate. No oral thrush. NECK: Trachea midline. Supple and not tender, no meningeal signs CARDIOVASCULAR: Regular rate and rhythm. No murmurs, rubs or gallops heard RESPIRATORY: Clear to auscultation. Breath sounds equal bilaterally. No rales , wheezing or rhonchi ABDOMEN: Soft, non-tender, nondistended. Bowel sounds present and normoactive. No guarding. No rebound. No organomegaly. : Ku cath in place, with blood tinged urine, getting CBI EXTREMITIES: No clubbing, cyanosis, or edema.No joint effusion, has good ROM. No calf tenderness. Well perfused and warm. NEUROLOGICAL: Awake and alert. Cranial nerves grossly intact. Motor grossly within normal limits. PSYCHIATRIC: Normal affect, calm and cooperative. LINE: No evidence of infection Laboratory Laboratory Tests Test 12/21/17 18:55 12/22/17 01:08 Potassium Level 3.7 Vancomycin Level Trough 10.8 Date/Time Source Procedure Growth Status 12/17/17 12:08 Blood Peripheral Aerobic Blood Culture - Final NO GROWTH IN 5 DAYS Complete 12/17/17 12:08 Blood Peripheral Anaerobic Blood Culture - Final NO GROWTH IN 5 DAYS Complete 12/17/17 00:00 Sputum Endotracheal Gram Stain - Final Complete 12/17/17 00:00 Sputum Culture - Final Klebsiella Pneumoniae Complete 12/17/17 10:20 Urine Catheterized Urine Urine Culture - Final NO GROWTH IN 48 HOURS. Complete Result Diagram: 12/21/17 0532 12/21/17 1855 Imaging RADIOLOGY STUDIES/FILMS REVIEWED Head CT 12/20/17 0000 Signed Impressions: Service Date/Time: Wednesday, December 20, 2017 14:36 - CONCLUSION: 1. Stable chronic changes with old right cerebellar infarct and white matter changes in the right patel radiata. 2. Nothing acute. Andrés Lyons MD Chest X-Ray 12/18/17 0600 Signed Impressions: Service Date/Time: November 04:48 - CONCLUSION: Improved bibasilar consolidation, now minimal. Interim extubation and nasogastric tube removal. Sameer Lafleur MD Abdomen/Pelvis CT 12/16/17 1415 Signed Impressions: Service Date/Time: Saturday, December 16, 2017 14:52 - CONCLUSION: 1. Infrarenal abdominal aortic aneurysm. 2. Bibasilar consolidating airspace disease. 3. Cholelithiasis 4. Prostatomegaly 5. Left renal cyst Ovi Puentes MD Neck CTA 12/16/17 1249 Signed Impressions: Service Date/Time: Saturday, December 16, 2017 12:51 - CONCLUSION: 1. No carotid stenosis. Cole Tracy MD Head CTA 12/16/17 1249 Signed Impressions: Service Date/Time: Saturday, December 16, 2017 12:51 - CONCLUSION: 1. Hypoplastic right A1 segment. 2. No evidence for large vessel occlusion as questioned. Findings were present discussed with Dr. Mitchell. Jacinto Hernandez MD Brain MRI 12/16/17 0000 Signed Impressions: Service Date/Time: Saturday, December 16, 2017 15:27 - 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 2. Scattered areas of increased signal intensity on the diffusion weighted imaging sequence with probable true punctate lacunar type infarct in the left basal ganglia. Based on the ADC maps, I believe the increased signal in the right parieto-occipital watershed area is T2 shine through. 3. Mild periventricular and scattered deep white matter tracks areas of small vessel ischemic demyelination. Andrés Lyons MD Assessment and Plan Assessment and Plan IMPRESSION Klebsiella PNA Respiratory failure S/P extubation Episode of unresponsiveness, ?etiology - has acute acunar infarct at basal ganglia Encephalopathy RECOMMENDATION Currently on Cefepime Will change to po Levaquin and complete PNA RX Monitor mental status with use of Levaquin Monitor progress Thank you for this consultation Sayra Squires MD Dec 22, 2017 15:59
[2017-12-22] MEDS: LEVOFLOXACIN 750 MG TAB PO SCH (17:00)
[2017-12-22] MEDS: RESP: ALBUTEROL 2.5 MG/3 ML NEB (PRN) NEB (17:41)
[2017-12-22] MEDS ORDERED: LISINOPRIL 10 MG TAB PO ONE (18:15)
[2017-12-22] MEDS: LISINOPRIL 10 MG TAB PO SCH (21:56)
[2017-12-23] MEDS: CARBOXYMETHYLCELL SOD 0.5% OPTH SOLN 15 ML BTL EACH EYE SCH ×3 (03:49→20:38)
[2017-12-23] MEDS: CHLORHEXIDINE GLUCONATE 2 % 1 PACK (2 CLOTHS) TOP SCH (03:49)
[2017-12-23] MEDS: SODIUM CHLOR 0.9% 1000 ML INJ 1,000 ML IV SCH (03:49)
[2017-12-23 03:50] VITALS: BP 158/76; PULSE 74; RESP 18; TEMP 98.4; O2SAT 94
[2017-12-23] MEDS: INSULIN NovoLIN REGULAR SUPPLEMENTAL SCALE SQ SCH ×3 (04:58→12:00)
[2017-12-23] MEDS: SODIUM CHLORIDE 0.9% FLUSH 10 ML FLUSH IV FLUSH SCH ×2 (07:26→20:38)
[2017-12-23 08:00] VITALS: PULSE 76; RESP 18; TEMP 98.3; O2SAT 98
[2017-12-23 08:26] LABS: CALCIUM 8.6 MG/DL (8.5-10.1); CREATININE 0.72 MG/DL (0.60-1.30); MAGNESIUM 1.5 MG/DL (1.5-2.5); PHOSPHORUS 2.6 MG/DL (2.5-4.9)
[2017-12-23 08:47] VITALS: BP 180/85
[2017-12-23] MEDS: APIXABAN 5 MG TABLET PO SCH ×2 (08:48→20:38)
[2017-12-23] MEDS: POTASSIUM PHOSPHATE MONOBASIC 500 MG TAB PO SCH (08:48)
[2017-12-23] MEDS: DOCUSATE SODIUM 50 MG/SENNA 8.6 MG TAB PO SCH ×2 (08:48→20:38)
[2017-12-23] MEDS: ATORVASTATIN 40 MG TAB PO SCH (08:48)
[2017-12-23] MEDS: ASPIRIN EC 81 MG TABEC PO SCH (08:49)
[2017-12-23] MEDS: LEVOFLOXACIN 750 MG TAB PO SCH (08:49)
[2017-12-23] MEDS: METOPROLOL SUCCINATE 50 MG EXTENDED RELEASE TAB PO SCH (08:49)
[2017-12-23] MEDS: AMIODARONE 200 MG TAB PO SCH (08:49)
[2017-12-23] MEDS: LISINOPRIL 10 MG TAB PO SCH ×2 (08:49→20:37)
[2017-12-23] MEDS: LANSOPRAZOLE SOLUTAB 30 MG TAB NG SCH (08:49)
[2017-12-23] MEDS: DIGOXIN 0.125 MG TAB PO SCH (08:49)
[2017-12-23] MEDS ORDERED: PHARMACY ORDERED LAB ONE (11:45)
[2017-12-23 11:59] VITALS: BP_SYST 160; BP_SYST 175; BP_DIAS 80; BP_DIAS 87; PULSE 71; RESP 18; TEMP 98; O2SAT 95
--- NOTE | 2017-12-23 12:12 | HHI.IDPN ---
Subjective Subjective Remarks Patient is a 77-year-old male, brought into the hospital by a friend after he had an acute onset of severe headache followed by unresponsiveness. He was brought to the emergency room he was awake and was very combative. He ended up getting intubated. 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 MRI showed right cerebellar infarct with a left basal ganglia lacunar infarct. MRA did not show any aneurysm. Patient was successfully extubated on December 17 and has remained off the vent. He has had leukocytosis, and culture showed Klebsiella in the sputum. Chest x-ray have shown pulmonary infiltrate Since he was extubated he has had problem on and off with confusion. He had pulled out his Ku catheter and resulted in traumatic hematuria. Patient currently is having bladder irrigation. His Ku has some blood-tinged urine but not gross hematuria. Patient's WBC improved, and his follow-up chest x-ray showed improvement in his infiltrates. He is currently on IV Zosyn. Infectious disease consultation has been requested to evaluate the patient. Notes reviewed Temps okay Confused Antibiotics Levaquin Current Medications Medications (Trade) Dose Ordered Sig/Heladio Route Start Time Stop Time Status Last Admin (NS Flush) 2 ml UNSCH PRN IV FLUSH 12/16/17 17:30 (NS Flush) 2 ml BID IV FLUSH 12/16/17 21:00 12/23/17 07:26 (Zofran Inj) 4 mg Q6H PRN IV PUSH 12/16/17 17:30 Miscellaneous Information 1 Q361D XX 12/16/17 17:30 12/16/17 20:09 (Chlorhexidine 2% Cloth) Taper DAILY@04 TOP 12/17/17 04:00 12/13/18 03:59 12/23/17 03:49 (Chlorhexidine 2% Cloth) 3 pack UNSCH PRN TOP 12/16/17 17:30 (Oriana-Colace) 1 tab BID PO 12/16/17 21:00 12/23/17 08:48 (Milk Of Magnesia Liq) 30 ml Q12H PRN PO 12/16/17 17:30 (Senokot) 17.2 mg Q12H PRN PO 12/16/17 17:30 (Dulcolax Supp) 10 mg DAILY PRN RECTAL 12/16/17 17:30 (Lactulose Liq) 30 ml DAILY PRN PO 12/16/17 17:30 (Albuterol Neb) 2.5 mg Q2HR NEB PRN NEB 12/16/17 18:15 12/22/17 17:41 (Tylenol 650 Mg/ 20 ml Liq) 650 mg Q6H PRN NG 12/16/17 18:15 12/19/17 13:59 (Prevacid Odt) 30 mg DAILY NG 12/17/17 09:00 12/23/17 08:49 (D50w (Vial) Inj) 50 ml UNSCH PRN IV PUSH 12/16/17 18:30 (Glucagon Inj) 1 mg UNSCH PRN OTHER 12/16/17 18:30 (NovoLIN R SUPPLEMENTAL SCALE) 1 Q6HR SQ 12/17/17 00:00 (Cordarone) 200 mg DAILY PO 12/17/17 09:00 12/23/17 08:49 (Lipitor) 40 mg DAILY PO 12/17/17 09:00 12/23/17 08:48 (Trandate Inj) 10 mg Q1HR PRN IV PUSH 12/16/17 18:30 12/20/17 18:44 (Lanoxin) 0.125 mg DAILY PO 12/17/17 09:00 12/23/17 08:49 (Eliquis) 5 mg BID PO 12/16/17 21:00 12/23/17 08:48 (Refresh Tears 0.5% Opth Soln) 1 drop Q8HR EACH EYE 12/17/17 06:00 12/22/17 14:00 (Ecotrin Ec) 81 mg DAILY PO 12/18/17 09:00 12/23/17 08:49 (Vasotec Inj) 1.25 mg Q6H PRN IV PUSH 12/20/17 11:00 12/20/17 10:27 (Toprol Xl) 50 mg DAILY PO 12/20/17 11:00 12/23/17 08:49 (Apresoline Inj) 10 mg Q4H PRN IV PUSH 12/20/17 13:45 12/20/17 20:35 (Prinivil) 20 mg Q12HR PO 12/22/17 21:00 12/23/17 08:49 (Levaquin) 750 mg DAILY PO 12/22/17 17:00 12/29/17 16:59 12/23/17 08:49 (Flomax) 0.8 mg HS PO 12/23/17 21:00 Past Medical History Right renal cyst Depression disorder NOS Dyslipidemia Hypertension/essential Chronic atrial fibrillation BPH Gastroesophageal reflux disease History of CVA 2013 Infrarenal AAA with bilateral iliac aneurysms Past Surgical History 3 AAA repair Left rotator cuff repair Ablation Allergies: Coded Allergies: No Allergy Information Available (Unverified , 12/16/17) Objective . Vital Signs Date Time Temp Pulse Resp B/P (MAP) Pulse Ox O2 Delivery O2 Flow Rate FiO2 12/23/17 11:59 98.0 71 18 175/87 (116) 95 160/80 (106) 12/23/17 08:47 180/85 (116) 12/23/17 08:00 98.3 76 18 98 12/23/17 04:00 Room Air 12/23/17 03:50 98.4 74 18 158/76 (103) 94 12/23/17 00:00 Room Air 12/22/17 23:38 97.9 108 18 159/88 (111) 98 12/22/17 22:00 Room Air 12/22/17 21:35 98.4 69 18 166/91 (116) 95 12/22/17 20:25 95 Nasal Cannula 2.00 12/22/17 16:00 97.8 58 23 163/81 (108) 95 12/22/17 16:00 58 . Laboratory Tests Test 12/21/17 18:55 12/23/17 07:53 Potassium Level 3.7 MEQ/L 3.1 MEQ/L Blood Urea Nitrogen 9 MG/DL Creatinine 0.72 MG/DL Random Glucose 114 MG/DL Calcium Level 8.6 MG/DL Phosphorus Level 2.6 MG/DL Magnesium Level 1.5 MG/DL Sodium Level 143 MEQ/L Chloride Level 107 MEQ/L Carbon Dioxide Level 25.0 MEQ/L Anion Gap 11 MEQ/L Estimat Glomerular Filtration Rate 106 ML/MIN Imaging Last Impressions Head CT 12/20/17 0000 Signed Impressions: Service Date/Time: Wednesday, December 20, 2017 14:36 - CONCLUSION: 1. Stable chronic changes with old right cerebellar infarct and white matter changes in the right patel radiata. 2. Nothing acute. Andrés Lyons MD Chest X-Ray 12/18/17 0600 Signed Impressions: Service Date/Time: November 04:48 - CONCLUSION: Improved bibasilar consolidation, now minimal. Interim extubation and nasogastric tube removal. Sameer Lafleur MD Abdomen/Pelvis CT 12/16/17 1415 Signed Impressions: Service Date/Time: Saturday, December 16, 2017 14:52 - CONCLUSION: 1. Infrarenal abdominal aortic aneurysm. 2. Bibasilar consolidating airspace disease. 3. Cholelithiasis 4. Prostatomegaly 5. Left renal cyst Ovi Puentes MD Neck CTA 12/16/17 1249 Signed Impressions: Service Date/Time: Saturday, December 16, 2017 12:51 - CONCLUSION: 1. No carotid stenosis. Cole Tracy MD Head CTA 12/16/17 1249 Signed Impressions: Service Date/Time: Saturday, December 16, 2017 12:51 - CONCLUSION: 1. Hypoplastic right A1 segment. 2. No evidence for large vessel occlusion as questioned. Findings were present discussed with Dr. Mitchell. Jacinto Hernandez MD Brain MRI 12/16/17 0000 Signed Impressions: Service Date/Time: Saturday, December 16, 2017 15:27 - 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 2. Scattered areas of increased signal intensity on the diffusion weighted imaging sequence with probable true punctate lacunar type infarct in the left basal ganglia. Based on the ADC maps, I believe the increased signal in the right parieto-occipital watershed area is T2 shine through. 3. Mild periventricular and scattered deep white matter tracks areas of small vessel ischemic demyelination. Andrés Lyons MD Physical Exam GENERAL: awake and alert, not in respiratory distress. SKIN: Cool and dry. No generalized rash HEAD: Atraumatic. Normocephalic. No temporal wasting, or tenderness. EYES: [place] conjunctiva. No petechia or hemorrhage. Pupils equal, round and reactive to light. Extraocular movements full and intact. No scleral icterus. No injection or drainage. EARS, NOSE AND THROAT: Nose without bleeding or purulent nasal discharge. No sinus tenderness. Mucous membranes pink and moist. No oral lesions noted. No exudate. No oral thrush. NECK: Trachea midline. Supple and not tender, no meningeal signs CARDIOVASCULAR: Regular rate and rhythm. No murmurs, rubs or gallops heard RESPIRATORY: Clear to auscultation. Breath sounds equal bilaterally. No rales , wheezing or rhonchi ABDOMEN: Soft, non-tender, nondistended. Bowel sounds present and normoactive. No guarding. No rebound. No organomegaly. : Ku cath in place, with blood tinged urine, getting CBI EXTREMITIES: No clubbing, cyanosis, or edema.No joint effusion, has good ROM. No calf tenderness. Well perfused and warm. NEUROLOGICAL: Awake and alert. Cranial nerves grossly intact. Motor grossly within normal limits. PSYCHIATRIC: Normal affect, calm and cooperative. LINE: No evidence of infection Assessment & Plan Remarks IMPRESSION Klebsiella PNA Respiratory failure S/P extubation Episode of unresponsiveness, ?etiology - has acute lacunar infarct at basal ganglia Encephalopathy RECOMMENDATION Continue Levaquin and complete PNA RX Monitor mental status with use of Levaquin Neurology following Monitor progress Seems clinically stable from the ID standpoint Sayra Squires MD Dec 23, 2017 12:12
--- NOTE | 2017-12-23 13:04 | HHI.PR ---
Subjective Remarks Follow-up encephalopathy and Ku trauma. He is doing much better no complaints. Discussed with RN, PT and daughter, improving confusion. He is voiding with clear yellow urine. Objective Vitals Vital Signs Date Time Temp Pulse Resp B/P (MAP) Pulse Ox O2 Delivery O2 Flow Rate FiO2 12/23/17 11:59 98.0 71 18 175/87 (116) 95 160/80 (106) 12/23/17 08:47 180/85 (116) 12/23/17 08:00 98.3 76 18 98 12/23/17 04:00 Room Air 12/23/17 03:50 98.4 74 18 158/76 (103) 94 12/23/17 00:00 Room Air 12/22/17 23:38 97.9 108 18 159/88 (111) 98 12/22/17 22:00 Room Air 12/22/17 21:35 98.4 69 18 166/91 (116) 95 12/22/17 20:25 95 Nasal Cannula 2.00 12/22/17 16:00 97.8 58 23 163/81 (108) 95 12/22/17 16:00 58 I/O 12/22/17 12/22/17 12/22/17 12/23/17 12/23/17 12/23/17 07:00 15:00 23:00 07:00 15:00 23:00 Intake Total 600 ml 850 ml 100 ml Output Total 1600 ml 2200 ml 600 ml Balance -1000 ml -1350 ml -500 ml Intake Oral 500 ml 100 ml IV Total 600 ml 350 ml Output Urine Total 1600 ml 2200 ml 600 ml # Bowel Movements 0 1 0 Result Diagram: 12/21/17 0532 12/23/17 0753 Imaging Last Impressions Head CT 12/20/17 0000 Signed Impressions: Service Date/Time: Wednesday, December 20, 2017 14:36 - CONCLUSION: 1. Stable chronic changes with old right cerebellar infarct and white matter changes in the right patel radiata. 2. Nothing acute. Andrés Lyons MD Chest X-Ray 12/18/17 0600 Signed Impressions: Service Date/Time: November 04:48 - CONCLUSION: Improved bibasilar consolidation, now minimal. Interim extubation and nasogastric tube removal. Sameer Lafleur MD Abdomen/Pelvis CT 12/16/17 1415 Signed Impressions: Service Date/Time: Saturday, December 16, 2017 14:52 - CONCLUSION: 1. Infrarenal abdominal aortic aneurysm. 2. Bibasilar consolidating airspace disease. 3. Cholelithiasis 4. Prostatomegaly 5. Left renal cyst Ovi Puentes MD Neck CTA 12/16/17 1249 Signed Impressions: Service Date/Time: Saturday, December 16, 2017 12:51 - CONCLUSION: 1. No carotid stenosis. Cole Tracy MD Head CTA 12/16/17 1249 Signed Impressions: Service Date/Time: Saturday, December 16, 2017 12:51 - CONCLUSION: 1. Hypoplastic right A1 segment. 2. No evidence for large vessel occlusion as questioned. Findings were present discussed with Dr. Mitchell. Jacinto Hernandez MD Brain MRI 12/16/17 0000 Signed Impressions: Service Date/Time: Saturday, December 16, 2017 15:27 - 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 2. Scattered areas of increased signal intensity on the diffusion weighted imaging sequence with probable true punctate lacunar type infarct in the left basal ganglia. Based on the ADC maps, I believe the increased signal in the right parieto-occipital watershed area is T2 shine through. 3. Mild periventricular and scattered deep white matter tracks areas of small vessel ischemic demyelination. Andrés Lyons MD Objective Remarks GENERAL: This is a well-nourished, well-developed patient, not in acute distress CARDIOVASCULAR: RRR, no gallops, or rubs. RESPIRATORY: Fair air entry bilaterally. GASTROINTESTINAL: Abdomen soft, non-tender, nondistended. Positive bowel sounds MUSCULOSKELETAL: Extremities without clubbing, cyanosis, or edema. Pedal pulses appreciated NEUROLOGICAL: Awake and alert nonfocal ambulating with a walker Procedures none A/P Problem List: (1) Headache ICD Code: R51 - Headache (2) Acute respiratory failure ICD Code: J96.00 - Acute respiratory failure, unspecified whether with hypoxia or hypercapnia (3) Cholelithiasis ICD Code: K80.20 - Calculus of gallbladder without cholecystitis without obstruction (4) Umbilical hernia ICD Code: K42.9 - Umbilical hernia without obstruction or gangrene (5) Renal cyst, right ICD Code: N28.1 - Cyst of kidney, acquired (6) BPH (benign prostatic hyperplasia) ICD Code: N40.0 - Benign prostatic hyperplasia without lower urinary tract symptoms (7) Anticoagulant long-term use ICD Code: Z79.01 - [facility] (current) use of anticoagulants (8) Essential hypertension ICD Code: I10 - Essential (primary) hypertension (9) Gastroesophageal reflux disease ICD Code: K21.9 - Gastro-esophageal reflux disease without esophagitis (10) Atrial fibrillation ICD Code: I48.91 - Unspecified atrial fibrillation (11) History of CVA (cerebrovascular accident) ICD Code: Z86.73 - Personal history of transient ischemic attack (TIA), and cerebral infarction without residual deficits (12) Aneurysm of infrarenal abdominal aorta ICD Code: I71.4 - Abdominal aortic aneurysm, without rupture (13) Dyslipidemia ICD Code: E78.5 - Hyperlipidemia, unspecified (14) Depression ICD Code: F32.9 - Major depressive disorder, single episode, unspecified (15) Altered mental status ICD Code: R41.82 - Altered mental status, unspecified Status: Acute Assessment and Plan Hx of right cerebellar CVA in 2013 Major Depressive disorder NOS Acute left basal ganglia lacunar cerebral vascular accident -Encephalopathy is improving -Neurology is following and thinks that this is metabolic and not secondary to a new CVA -Magnesium, Phosphorous and potassium were low and are being replaced -Apixaban has been resumed per neurology -Atorvastatin 40mg has been restarted . Hemoglobin A1c 6.3 risk factor modification -MRI brain revealed old right cerebellar infarct. Left basal ganglia perfusion possible acute infarct. -Patient was on CIWA due to unclear hx of alcohol abuse but the CIWA has been discontinued because the benzodiazepines could be causing altered mental status- has been sober for 6 years Elevated TSH -TSH was elevated and T3 was low, T4 normal History of atrial fibrillation status post ablation Hypertension Dyslipidemia History of infrarenal AAA -Hydralazine and Vasotec IV PRN for Systolic >160. Lisinopril just increased to 20 mg BID. Monitor BP -Echo showed EF of 50-55% -BP control should be closely monitored due to AAA -CT abdomen/pelvis revealed 3.5-3.9 cm infrarenal AAA. Left iliac 2.4 cm. Right iliac 1.8 cm. No signs of rupture or leakage -Continue amiodarone and digoxin 0.125 mg PO daily COPD PNA -Duoneb Q6 hours PRN for wheezing -Albuterol PRN for rescue -stable ct Levaquin and rpt CXR 6 weeks Gastroesophageal reflux disease Benign Prostate Hypertrophy Hematuria -Lansoprazole for GI prophylaxis -Docusate sodium/senna 1 tablet twice daily for bowel regimen -Hematuria likely due to urethral trauma from pulling out his Ku multiple times per the urologist/ Dr. Patel. Resolved -urologist recommends outpatient cystoscopy to rule out other causes and to continue his tamsulosin 0.8mg daily Prophylaxis -GI -lansoprazole -DVT -Apixaban Discharge Planning Stable for discharge Problem Qualifiers (1) Headache: Qualified Codes: R51 - Headache (2) Acute respiratory failure: Qualified Codes: J96.00 - Acute respiratory failure, unspecified whether with hypoxia or hypercapnia (3) Cholelithiasis: Qualified Codes: K80.80 - Other cholelithiasis without obstruction (4) Umbilical hernia: Qualified Codes: K42.9 - Umbilical hernia without obstruction or gangrene (5) BPH (benign prostatic hyperplasia): Qualified Codes: N40.0 - Benign prostatic hyperplasia without lower urinary tract symptoms (6) Gastroesophageal reflux disease: Qualified Codes: K21.9 - Gastro-esophageal reflux disease without esophagitis (7) Atrial fibrillation: Qualified Codes: I48.2 - Chronic atrial fibrillation (8) Depression: Qualified Codes: F33.9 - Major depressive disorder, recurrent, unspecified (9) Altered mental status: Qualified Codes: R40.2431 - Adelso coma scale score 3-8, in the field [emt or ambulance] Jovi Schilling MD Dec 23, 2017 13:04
[2017-12-23] MEDS ORDERED: LEVA750T9 PO (13:13)
[2017-12-23] MEDS ORDERED: ECASA81 PO (13:13)
[2017-12-23] MEDS ORDERED: LISI10TA3 PO (13:13)
--- NOTE | 2017-12-23 13:13 | HHI.DCPOC ---
Discharge Care Plan Diagnosis: (1) Altered mental status (2) Acute respiratory failure Your Health Problems Are: Difficulty with ADL Exercise Tolerance Goals to Promote Your Health * To prevent worsening of your condition and complications * To maintain your health at the optimal level Directions to Meet Your Goals Take your medications as prescribed Follow your dietary instruction Follow activity as directed Keep your appointments as scheduled Take your immunizations and boosters as scheduled If your symptoms worsen call your PCP, if no PCP go to Urgent Care Center or Emergency Room Smoking is Dangerous to Your Health. Avoid second hand smoke Call the 24-hour hour crisis hotline for domestic abuse at Jovi Schilling MD Dec 23, 2017 13:13
--- NOTE | 2017-12-23 13:15 | HHI.DS ---
Discharge Summary Admission Date Dec 16, 2017 at 14:17 Discharge Date: Dec 24, 2017 Admitting Diagnosis ALTERED MENTAL STATUS (1) Headache ICD Code: R51 - Headache Diagnosis: Principal (2) Acute respiratory failure ICD Code: J96.00 - Acute respiratory failure, unspecified whether with hypoxia or hypercapnia Diagnosis: Principal (3) Cholelithiasis ICD Code: K80.20 - Calculus of gallbladder without cholecystitis without obstruction Diagnosis: Secondary (4) Umbilical hernia ICD Code: K42.9 - Umbilical hernia without obstruction or gangrene Diagnosis: Secondary (5) Renal cyst, right ICD Code: N28.1 - Cyst of kidney, acquired Diagnosis: Secondary (6) BPH (benign prostatic hyperplasia) ICD Code: N40.0 - Benign prostatic hyperplasia without lower urinary tract symptoms Diagnosis: Secondary (7) Anticoagulant long-term use ICD Code: Z79.01 - [employer] (current) use of anticoagulants Diagnosis: Principal (8) Essential hypertension ICD Code: I10 - Essential (primary) hypertension Diagnosis: Principal (9) Gastroesophageal reflux disease ICD Code: K21.9 - Gastro-esophageal reflux disease without esophagitis Diagnosis: Secondary (10) Atrial fibrillation ICD Code: I48.91 - Unspecified atrial fibrillation Diagnosis: Principal (11) History of CVA (cerebrovascular accident) ICD Code: Z86.73 - Personal history of transient ischemic attack (TIA), and cerebral infarction without residual deficits Diagnosis: Secondary (12) Aneurysm of infrarenal abdominal aorta ICD Code: I71.4 - Abdominal aortic aneurysm, without rupture Diagnosis: Secondary (13) Dyslipidemia ICD Code: E78.5 - Hyperlipidemia, unspecified Diagnosis: Principal (14) Depression ICD Code: F32.9 - Major depressive disorder, single episode, unspecified Diagnosis: Secondary (15) Altered mental status ICD Code: R41.82 - Altered mental status, unspecified Diagnosis: Principal Status: Acute Procedures none Brief History - From Admission This is a 77 year-old male. Real name is Florian MAURICIO. Date of admission 12/17/2007. Past medical history includes atrial fibrillation status post ablation by Dr. Waller, chronic apixaban use, hypertension, dyslipidemia, gastroesophageal disease and prior history of CVA in 2012 and a known infrarenal AAA. Today, this patient was visiting a local friend when he had a sudden onset of severe headache became unresponsive. He was brought by paramedics to [facility]. He is very combative and further assessment and history was initially not obtainable. CT brain revealed old right cerebellar CVA. MRI brain revealed old right cerebellar infarct with a left basal ganglia left possible lacunar infarct. MRA brain revealed hypoplastic right A1 segment. EEG was performed with results pending. Patient had a abdominal CT which revealed a 5 producing right renal cyst, infrarenal AAA 3.5-3.9 cm with the right iliac aneurysm 0.8 cm and left aneurysm 2.4 cm's. Cholelithiasis and BPH. Patient is currently a propofol drip at 50 mcg/kg/min with high oxygen requirements. Awaiting EEG results. Patient is a gag and a cough and withdraws to pain bilateral upper lower extremities. Upper tremors are clenched. CBC/BMP: 12/21/17 0532 12/23/17 0753 Significant Findings Laboratory Tests Test 12/21/17 00:01 12/21/17 05:32 12/21/17 18:55 12/22/17 01:08 Potassium Level 3.1 MEQ/L (3.5-5.1) 3.2 MEQ/L (3.5-5.1) Red Blood Count 4.43 MIL/MM3 (4.50-5.90) Neutrophils (%) (Auto) 83.1 % (16.0-70.0) Lymphocytes (%) (Auto) 3.1 % (9.0-44.0) Monocytes (%) (Auto) 12.3 % (0.0-8.0) Neutrophils # (Auto) 8.4 TH/MM3 (1.8-7.7) Lymphocytes # (Auto) 0.3 TH/MM3 (1.0-4.8) Monocytes # (Auto) 1.2 TH/MM3 (0-0.9) Chloride Level 108 MEQ/L (98-107) Vancomycin Level Trough 10.8 MCG/ML (5.0-10.0) Test 12/23/17 07:53 Random Glucose 114 MG/DL (74-106) Potassium Level 3.1 MEQ/L (3.5-5.1) Imaging Last Impressions Head CT 12/20/17 0000 Signed Impressions: Service Date/Time: Wednesday, December 20, 2017 14:36 - CONCLUSION: 1. Stable chronic changes with old right cerebellar infarct and white matter changes in the right patel radiata. 2. Nothing acute. Andrés Lyons MD Chest X-Ray 12/18/17 0600 Signed Impressions: Service Date/Time: November 04:48 - CONCLUSION: Improved bibasilar consolidation, now minimal. Interim extubation and nasogastric tube removal. Sameer Lafleur MD Abdomen/Pelvis CT 12/16/17 1415 Signed Impressions: Service Date/Time: Saturday, December 16, 2017 14:52 - CONCLUSION: 1. Infrarenal abdominal aortic aneurysm. 2. Bibasilar consolidating airspace disease. 3. Cholelithiasis 4. Prostatomegaly 5. Left renal cyst Ovi Puentes MD Neck CTA 12/16/17 1249 Signed Impressions: Service Date/Time: Saturday, December 16, 2017 12:51 - CONCLUSION: 1. No carotid stenosis. Cole Tracy MD Head CTA 12/16/17 1249 Signed Impressions: Service Date/Time: Saturday, December 16, 2017 12:51 - CONCLUSION: 1. Hypoplastic right A1 segment. 2. No evidence for large vessel occlusion as questioned. Findings were present discussed with Dr. Mitchell. Jacinto Hernandez MD Brain MRI 12/16/17 0000 Signed Impressions: Service Date/Time: Saturday, December 16, 2017 15:27 - 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 2. Scattered areas of increased signal intensity on the diffusion weighted imaging sequence with probable true punctate lacunar type infarct in the left basal ganglia. Based on the ADC maps, I believe the increased signal in the right parieto-occipital watershed area is T2 shine through. 3. Mild periventricular and scattered deep white matter tracks areas of small vessel ischemic demyelination. Andrés Lyons MD PE at Discharge GENERAL: This is a well-nourished, well-developed patient, not in acute distress CARDIOVASCULAR: RRR, no gallops, or rubs. RESPIRATORY: Fair air entry bilaterally. GASTROINTESTINAL: Abdomen soft, non-tender, nondistended. Positive bowel sounds MUSCULOSKELETAL: Extremities without clubbing, cyanosis, or edema. Pedal pulses appreciated NEUROLOGICAL: Awake and alert nonfocal ambulating with a walker Hospital Course Hx of right cerebellar CVA in 2012 Major Depressive disorder NOS Acute left basal ganglia lacunar cerebral vascular accident -Encephalopathy is resolving -Neurology is following and thinks that this is metabolic and not secondary to a new CVA -Magnesium, Phosphorous and potassium were low and are being replaced -Apixaban has been resumed per neurology -Atorvastatin 40mg has been restarted . Hemoglobin A1c 6.3 risk factor modification -MRI brain revealed old right cerebellar infarct. Left basal ganglia perfusion possible acute infarct. -Patient was on CIWA due to unclear hx of alcohol abuse but the CIWA has been discontinued because the benzodiazepines could be causing altered mental status- has been sober for 6 years Elevated TSH -TSH was elevated and T3 was low, T4 normal History of atrial fibrillation status post ablation Hypertension Dyslipidemia History of infrarenal AAA -Hydralazine and Vasotec IV PRN for Systolic >160. Lisinopril just increased to 20 mg BID. Monitor BP -Echo showed EF of 50-55% -BP control should be closely monitored due to AAA -CT abdomen/pelvis revealed 3.5-3.9 cm infrarenal AAA. Left iliac 2.4 cm. Right iliac 1.8 cm. No signs of rupture or leakage -Continue amiodarone and digoxin 0.125 mg PO daily COPD PNA -Duoneb Q6 hours PRN for wheezing -Albuterol PRN for rescue -stable ct Levaquin and rpt CXR 6 weeks Gastroesophageal reflux disease Benign Prostate Hypertrophy Hematuria -Lansoprazole for GI prophylaxis -Docusate sodium/senna 1 tablet twice daily for bowel regimen -Hematuria likely due to urethral trauma from pulling out his Ku multiple times per the urologist/ Dr. Patel. Resolved -urologist recommends outpatient cystoscopy to rule out other causes and to continue his tamsulosin 0.8mg daily Prophylaxis -GI -lansoprazole -DVT -Apixaban Pt Condition on Discharge: Stable Discharge Disposition: Disch w/ Home Health Serv Discharge Time: > 30 minutes Discharge Instructions DIET: Follow Instructions for: Heart Healthy Diet Activities you can perform: Regular-No Restrictions Activities to Avoid: Driving Follow up Referrals: Neurology - 1 Week PCP Follow-up - 2-3 Days New Orders: X-RAY CHEST PA & LAT - 6 Weeks New Medications: Walker with Front Wheels (Walker with Front Wheels) 1 Mis Mis EA .XX DIRECTED, #[address] (Aspirin DR) 81 Mg Tabdr 81 MG PO DAILY for Prevent Blood Clot, #30 TAB Levofloxacin (Levaquin) 750 Mg Tablet 750 MG PO DAILY for Infection, #6 TAB dc 4/30 Lisinopril (Lisinopril) 10 Mg Tab 20 MG PO Q12HR for Blood Pressure Management, #120 TAB Continued Medications: Amiodarone (Amiodarone) 200 Mg Tab 200 MG PO DAILY for Regulate Heart Beat, #30 TAB 0 Refills Apixaban (Eliquis) 5 Mg Tab 5 MG PO BID for Blood Clot Prevention, #60 TAB 0 Refills Atorvastatin (Atorvastatin) 40 Mg Tab 40 MG PO HS for Cholesterol Management, #30 TAB 0 Refills Digoxin (Digoxin) 0.125 Mg Tab 0.125 MG PO DAILY for Regulate Heart Beat, #30 TAB 0 Refills Escitalopram (Escitalopram) 10 Mg Tab 10 MG PO DAILY for Control Depression, #30 TAB 0 Refills Magnesium Oxide (Magox 400) 400 Mg Tablet 1 TAB PO DAILY for Nutritional Supplement Metoprolol Succinate ER 24 HR (Metoprolol Succinate ER 24 HR) 50 Mg Tab 50 MG PO DAILY for Blood Pressure Management, #30 TAB 0 Refills Omeprazole (Omeprazole) 20 Mg Tab 20 MG PO DAILY for Reflux, #30 TAB 0 Refills Tamsulosin (Tamsulosin) 0.4 Mg Cap 0.8 MG PO HS for Manage Prostate Problems, #60 CAP 0 Refills Jovi Schilling MD Dec 23, 2017 13:15
[2017-12-23 16:00] VITALS: BP 151/77; PULSE 66; RESP 18; TEMP 98.4; O2SAT 94
[2017-12-23 20:00] VITALS: BP 167/87; PULSE 67; RESP 17; TEMP 98.7; O2SAT 98
[2017-12-23] MEDS ORDERED: TAMSULOSIN HCL 0.4 MG CAP PO SCH (21:00)
[2017-12-24] VITALS: BP 151/79; PULSE 69; RESP 17; TEMP 98.6; O2SAT 98
[2017-12-24] MEDS: CHLORHEXIDINE GLUCONATE 2 % 1 PACK (2 CLOTHS) TOP SCH (03:12)
[2017-12-24 04:00] VITALS: BP 148/65; PULSE 57; RESP 18; TEMP 98.7; O2SAT 98
[2017-12-24] MEDS: CARBOXYMETHYLCELL SOD 0.5% OPTH SOLN 15 ML BTL EACH EYE SCH ×2 (04:46→12:21)
[2017-12-24] MEDS: SODIUM CHLORIDE 0.9% FLUSH 10 ML FLUSH IV FLUSH SCH (07:12)
[2017-12-24 08:01] VITALS: BP 158/76; PULSE 69; RESP 18; TEMP 97.8; O2SAT 94
[2017-12-24] MEDS: AMIODARONE 200 MG TAB PO SCH (08:03)
[2017-12-24] MEDS: ASPIRIN EC 81 MG TABEC PO SCH (08:03)
[2017-12-24] MEDS: ATORVASTATIN 40 MG TAB PO SCH (08:04)
[2017-12-24] MEDS: DOCUSATE SODIUM 50 MG/SENNA 8.6 MG TAB PO SCH (08:04)
[2017-12-24] MEDS: LISINOPRIL 10 MG TAB PO SCH (08:04)
[2017-12-24] MEDS: LEVOFLOXACIN 750 MG TAB PO SCH (08:04)
[2017-12-24] MEDS: LANSOPRAZOLE SOLUTAB 30 MG TAB NG SCH (08:04)
[2017-12-24] MEDS: METOPROLOL SUCCINATE 50 MG EXTENDED RELEASE TAB PO SCH (08:04)
[2017-12-24] MEDS: APIXABAN 5 MG TABLET PO SCH (08:04)
[2017-12-24] MEDS: DIGOXIN 0.125 MG TAB PO SCH (08:04)
--- NOTE | 2017-12-24 08:36 | HHI.PR ---
Review/Management Daily Summary 12/24 doing well alert and oriented follows commands well statin, eliquis home soon, prn neuro Subjective Subjective Comments No acute events reported No headache Active Medications Current Medications Medications (Trade) Dose Ordered Sig/Heladio Route Start Time Stop Time Status Last Admin (NS Flush) 2 ml UNSCH PRN IV FLUSH 12/16/17 17:30 (NS Flush) 2 ml BID IV FLUSH 12/16/17 21:00 12/24/17 07:12 (Zofran Inj) 4 mg Q6H PRN IV PUSH 12/16/17 17:30 Miscellaneous Information 1 Q361D XX 12/16/17 17:30 12/16/17 20:09 (Chlorhexidine 2% Cloth) Taper DAILY@04 TOP 12/17/17 04:00 12/13/18 03:59 12/23/17 03:49 (Chlorhexidine 2% Cloth) 3 pack UNSCH PRN TOP 12/16/17 17:30 (Oriana-Colace) 1 tab BID PO 12/16/17 21:00 12/24/17 08:04 (Milk Of Magnesia Liq) 30 ml Q12H PRN PO 12/16/17 17:30 (Senokot) 17.2 mg Q12H PRN PO 12/16/17 17:30 (Dulcolax Supp) 10 mg DAILY PRN RECTAL 12/16/17 17:30 (Lactulose Liq) 30 ml DAILY PRN PO 12/16/17 17:30 (Albuterol Neb) 2.5 mg Q2HR NEB PRN NEB 12/16/17 18:15 12/22/17 17:41 (Tylenol 650 Mg/ 20 ml Liq) 650 mg Q6H PRN NG 12/16/17 18:15 12/19/17 13:59 (Prevacid Odt) 30 mg DAILY NG 12/17/17 09:00 12/24/17 08:04 (D50w (Vial) Inj) 50 ml UNSCH PRN IV PUSH 12/16/17 18:30 (Glucagon Inj) 1 mg UNSCH PRN OTHER 12/16/17 18:30 (Cordarone) 200 mg DAILY PO 12/17/17 09:00 12/24/17 08:03 (Lipitor) 40 mg DAILY PO 12/17/17 09:00 12/24/17 08:04 (Trandate Inj) 10 mg Q1HR PRN IV PUSH 12/16/17 18:30 12/20/17 18:44 (Lanoxin) 0.125 mg DAILY PO 12/17/17 09:00 12/24/17 08:04 (Eliquis) 5 mg BID PO 12/16/17 21:00 12/24/17 08:04 (Refresh Tears 0.5% Opth Soln) 1 drop Q8HR EACH EYE 12/17/17 06:00 12/23/17 13:00 (Ecotrin Ec) 81 mg DAILY PO 12/18/17 09:00 12/24/17 08:03 (Vasotec Inj) 1.25 mg Q6H PRN IV PUSH 12/20/17 11:00 12/20/17 10:27 (Toprol Xl) 50 mg DAILY PO 12/20/17 11:00 12/24/17 08:04 (Apresoline Inj) 10 mg Q4H PRN IV PUSH 12/20/17 13:45 12/20/17 20:35 (Prinivil) 20 mg Q12HR PO 12/22/17 21:00 12/24/17 08:04 (Levaquin) 750 mg DAILY PO 12/22/17 17:00 12/29/17 16:59 12/24/17 08:04 (Flomax) 0.8 mg HS PO 12/23/17 21:00 12/23/17 20:37 Allergies Allergies Coded Allergies No Allergy Information Available (Unverified12/16/17) Exam I&O / VS Vital Signs Date Time Temp Pulse Resp B/P (MAP) Pulse Ox O2 Delivery O2 Flow Rate FiO2 12/24/17 08:24 Room Air 21 12/24/17 04:00 98.7 57 18 148/65 (92) 98 12/24/17 04:00 Room Air 12/24/17 00:00 Room Air 12/24/17 00:00 98.6 69 17 151/79 (103) 98 12/23/17 20:00 98.7 67 17 167/87 (113) 98 12/23/17 20:00 Room Air 12/23/17 16:00 98.4 66 18 151/77 (101) 94 12/23/17 11:59 98.0 71 18 175/87 (116) 95 160/80 (106) 12/23/17 08:47 180/85 (116) Objective Micro and Labs Date/Time Source Procedure Growth Status 12/17/17 12:08 Blood Peripheral Aerobic Blood Culture - Final NO GROWTH IN 5 DAYS Complete 12/17/17 12:08 Blood Peripheral Anaerobic Blood Culture - Final NO GROWTH IN 5 DAYS Complete 12/17/17 00:00 Sputum Endotracheal Gram Stain - Final Complete 12/17/17 00:00 Sputum Culture - Final Klebsiella Pneumoniae Complete 12/17/17 10:20 Urine Catheterized Urine Urine Culture - Final NO GROWTH IN 48 HOURS. Complete Adriana Lynne MD Dec 24, 2017 08:36
--- NOTE | 2017-12-24 08:38 | HHI.IDPN ---
Subjective Subjective Remarks Patient is a 77-year-old male, brought into the hospital by a friend after he had an acute onset of severe headache followed by unresponsiveness. He was brought to the emergency room he was awake and was very combative. He ended up getting intubated. 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 MRI showed right cerebellar infarct with a left basal ganglia lacunar infarct. MRA did not show any aneurysm. Patient was successfully extubated on December 17 and has remained off the vent. He has had leukocytosis, and culture showed Klebsiella in the sputum. Chest x-ray have shown pulmonary infiltrate Since he was extubated he has had problem on and off with confusion. He had pulled out his Ku catheter and resulted in traumatic hematuria. Patient currently is having bladder irrigation. His Ku has some blood-tinged urine but not gross hematuria. Patient's WBC improved, and his follow-up chest x-ray showed improvement in his infiltrates. He is currently on IV Zosyn. Infectious disease consultation has been requested to evaluate the patient. Notes reviewed Sheldon doan Mental status stable Being referred to SNF for D/C Antibiotics Levaquin Current Medications Medications (Trade) Dose Ordered Sig/Heladio Route Start Time Stop Time Status Last Admin (NS Flush) 2 ml UNSCH PRN IV FLUSH 12/16/17 17:30 (NS Flush) 2 ml BID IV FLUSH 12/16/17 21:00 12/24/17 07:12 (Zofran Inj) 4 mg Q6H PRN IV PUSH 12/16/17 17:30 Miscellaneous Information 1 Q361D XX 12/16/17 17:30 12/16/17 20:09 (Chlorhexidine 2% Cloth) Taper DAILY@04 TOP 12/17/17 04:00 12/13/18 03:59 12/23/17 03:49 (Chlorhexidine 2% Cloth) 3 pack UNSCH PRN TOP 12/16/17 17:30 (Oriana-Colace) 1 tab BID PO 12/16/17 21:00 12/24/17 08:04 (Milk Of Magnesia Liq) 30 ml Q12H PRN PO 12/16/17 17:30 (Senokot) 17.2 mg Q12H PRN PO 12/16/17 17:30 (Dulcolax Supp) 10 mg DAILY PRN RECTAL 12/16/17 17:30 (Lactulose Liq) 30 ml DAILY PRN PO 12/16/17 17:30 (Albuterol Neb) 2.5 mg Q2HR NEB PRN NEB 12/16/17 18:15 12/22/17 17:41 (Tylenol 650 Mg/ 20 ml Liq) 650 mg Q6H PRN NG 12/16/17 18:15 12/19/17 13:59 (Prevacid Odt) 30 mg DAILY NG 12/17/17 09:00 12/24/17 08:04 (D50w (Vial) Inj) 50 ml UNSCH PRN IV PUSH 12/16/17 18:30 (Glucagon Inj) 1 mg UNSCH PRN OTHER 12/16/17 18:30 (Cordarone) 200 mg DAILY PO 12/17/17 09:00 12/24/17 08:03 (Lipitor) 40 mg DAILY PO 12/17/17 09:00 12/24/17 08:04 (Trandate Inj) 10 mg Q1HR PRN IV PUSH 12/16/17 18:30 12/20/17 18:44 (Lanoxin) 0.125 mg DAILY PO 12/17/17 09:00 12/24/17 08:04 (Eliquis) 5 mg BID PO 12/16/17 21:00 12/24/17 08:04 (Refresh Tears 0.5% Opth Soln) 1 drop Q8HR EACH EYE 12/17/17 06:00 12/23/17 13:00 (Ecotrin Ec) 81 mg DAILY PO 12/18/17 09:00 12/24/17 08:03 (Vasotec Inj) 1.25 mg Q6H PRN IV PUSH 12/20/17 11:00 12/20/17 10:27 (Toprol Xl) 50 mg DAILY PO 12/20/17 11:00 12/24/17 08:04 (Apresoline Inj) 10 mg Q4H PRN IV PUSH 12/20/17 13:45 12/20/17 20:35 (Prinivil) 20 mg Q12HR PO 12/22/17 21:00 12/24/17 08:04 (Levaquin) 750 mg DAILY PO 12/22/17 17:00 12/29/17 16:59 12/24/17 08:04 (Flomax) 0.8 mg HS PO 12/23/17 21:00 12/23/17 20:37 Past Medical History Right renal cyst Depression disorder NOS Dyslipidemia Hypertension/essential Chronic atrial fibrillation BPH Gastroesophageal reflux disease History of CVA 2013 Infrarenal AAA with bilateral iliac aneurysms Past Surgical History 3 AAA repair Left rotator cuff repair Ablation Allergies: Coded Allergies: No Allergy Information Available (Unverified , 12/16/17) Objective . Vital Signs Date Time Temp Pulse Resp B/P (MAP) Pulse Ox O2 Delivery O2 Flow Rate FiO2 12/24/17 08:24 Room Air 21 12/24/17 04:00 98.7 57 18 148/65 (92) 98 12/24/17 04:00 Room Air 12/24/17 00:00 Room Air 12/24/17 00:00 98.6 69 17 151/79 (103) 98 12/23/17 20:00 98.7 67 17 167/87 (113) 98 12/23/17 20:00 Room Air 12/23/17 16:00 98.4 66 18 151/77 (101) 94 12/23/17 11:59 98.0 71 18 175/87 (116) 95 160/80 (106) 12/23/17 08:47 180/85 (116) . Laboratory Tests Test 12/23/17 07:53 Blood Urea Nitrogen 9 MG/DL Creatinine 0.72 MG/DL Random Glucose 114 MG/DL Calcium Level 8.6 MG/DL Phosphorus Level 2.6 MG/DL Magnesium Level 1.5 MG/DL Sodium Level 143 MEQ/L Potassium Level 3.1 MEQ/L Chloride Level 107 MEQ/L Carbon Dioxide Level 25.0 MEQ/L Anion Gap 11 MEQ/L Estimat Glomerular Filtration Rate 106 ML/MIN Imaging Last Impressions Head CT 12/20/17 0000 Signed Impressions: Service Date/Time: Wednesday, December 20, 2017 14:36 - CONCLUSION: 1. Stable chronic changes with old right cerebellar infarct and white matter changes in the right patel radiata. 2. Nothing acute. Andrés Lyons MD Chest X-Ray 12/18/17 0600 Signed Impressions: Service Date/Time: November 04:48 - CONCLUSION: Improved bibasilar consolidation, now minimal. Interim extubation and nasogastric tube removal. Sameer Lafleur MD Abdomen/Pelvis CT 12/16/17 1415 Signed Impressions: Service Date/Time: Saturday, December 16, 2017 14:52 - CONCLUSION: 1. Infrarenal abdominal aortic aneurysm. 2. Bibasilar consolidating airspace disease. 3. Cholelithiasis 4. Prostatomegaly 5. Left renal cyst Ovi Puentes MD Neck CTA 12/16/17 1249 Signed Impressions: Service Date/Time: Saturday, December 16, 2017 12:51 - CONCLUSION: 1. No carotid stenosis. Cole Tracy MD Head CTA 12/16/17 1249 Signed Impressions: Service Date/Time: Saturday, December 16, 2017 12:51 - CONCLUSION: 1. Hypoplastic right A1 segment. 2. No evidence for large vessel occlusion as questioned. Findings were present discussed with Dr. Mitchell. Jacinto Hernandez MD Brain MRI 12/16/17 0000 Signed Impressions: Service Date/Time: Saturday, December 16, 2017 15:27 - 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 2. Scattered areas of increased signal intensity on the diffusion weighted imaging sequence with probable true punctate lacunar type infarct in the left basal ganglia. Based on the ADC maps, I believe the increased signal in the right parieto-occipital watershed area is T2 shine through. 3. Mild periventricular and scattered deep white matter tracks areas of small vessel ischemic demyelination. Andrés Lyons MD Physical Exam GENERAL: awake and alert, not in respiratory distress. SKIN: Cool and dry. No generalized rash HEAD: Atraumatic. Normocephalic. No temporal wasting, or tenderness. EYES: [place] conjunctiva. No petechia or hemorrhage. Pupils equal, round and reactive to light. Extraocular movements full and intact. No scleral icterus. No injection or drainage. EARS, NOSE AND THROAT: Nose without bleeding or purulent nasal discharge. No sinus tenderness. Mucous membranes pink and moist. No oral lesions noted. NECK: Trachea midline. Supple and not tender, no meningeal signs CARDIOVASCULAR: Regular rate and rhythm. No murmurs, rubs or gallops heard RESPIRATORY: Clear to auscultation. Breath sounds equal bilaterally. No rales , wheezing or rhonchi ABDOMEN: Soft, non-tender, nondistended. Bowel sounds present and normoactive. No guarding. No rebound. No organomegaly. : Ku cath in place, with blood tinged urine, getting CBI EXTREMITIES: No clubbing, cyanosis, or edema. No calf tenderness. Well perfused and warm. NEUROLOGICAL: Grossly nonfocal. PSYCHIATRIC: Normal affect, calm and cooperative. LINE: No evidence of infection Assessment & Plan Remarks IMPRESSION Klebsiella PNA Respiratory failure S/P extubation Episode of unresponsiveness, ?etiology - has acute lacunar infarct at basal ganglia Encephalopathy RECOMMENDATION Continue Levaquin and complete PNA RX -End date ordered in the [employer] Monitor progress Seems clinically stable from the ID standpoint Discharge plans noted I will be available as needed Please call if with any further ID issues or questions Sayra Squires MD Dec 24, 2017 08:38
--- NOTE | 2017-12-24 11:48 | HHI.FF ---
Face to Face Verification Diagnosis: (1) Altered mental status Physical Therapy Order: Evaluate and Treat, Improve ambulation, Strength and gait training Speech Therapy Order: To Improve: Speech and communication skills, Cognitive skills Home Health Nursing Order: Medical education Signs/symptoms of disease process Nursing assessment with vital signs I have seen patient Florian PérezJr on 12/24/17. My clinical findings support the need for the requested home health care services because: Deconditioned w/ increased weakness I certify that my clinical findings support that this patient is homebound because: Need for psychosocial assistance Jovi Schilling MD Dec 24, 2017 11:48
[2017-12-24 12:05] VITALS: BP 142/80; PULSE 66; RESP 18; TEMP 97.7; O2SAT 97
[2017-12-24] MEDS ORDERED: WALKER WHEELS/F1 MIS (13:24)
--- NOTE | 2017-12-24 13:54 | HHI.PR ---
Subjective Remarks Follow-up encephalopathy. He is doing much better no episodes of confusion he is oriented 4. Ambulating in the hallway PT recommending home care. will be available 24 hours to assist patient. Discussed with nursing and case management Objective Vitals Vital Signs Date Time Temp Pulse Resp B/P (MAP) Pulse Ox O2 Delivery O2 Flow Rate FiO2 12/24/17 12:05 97.7 66 18 142/80 (100) 97 12/24/17 08:24 Room Air 21 12/24/17 08:01 97.8 69 18 158/76 (103) 94 12/24/17 04:00 98.7 57 18 148/65 (92) 98 12/24/17 04:00 Room Air 12/24/17 00:00 Room Air 12/24/17 00:00 98.6 69 17 151/79 (103) 98 12/23/17 20:00 98.7 67 17 167/87 (113) 98 12/23/17 20:00 Room Air 12/23/17 16:00 98.4 66 18 151/77 (101) 94 I/O 12/23/17 12/23/17 12/23/17 12/24/17 12/24/17 12/24/17 07:00 15:00 23:00 07:00 15:00 23:00 Intake Total 100 ml 480 ml 120 ml Output Total 600 ml 500 ml Balance -500 ml 480 ml -380 ml Intake Oral 100 ml 480 ml 120 ml Output Urine Total 600 ml 500 ml # Voids 5 1 # Bowel Movements 0 1 Result Diagram: 12/21/17 0532 12/23/17 0753 Imaging Last Impressions Head CT 12/20/17 0000 Signed Impressions: Service Date/Time: Wednesday, December 20, 2017 14:36 - CONCLUSION: 1. Stable chronic changes with old right cerebellar infarct and white matter changes in the right patel radiata. 2. Nothing acute. Andrés Lyons MD Chest X-Ray 12/18/17 0600 Signed Impressions: Service Date/Time: November 04:48 - CONCLUSION: Improved bibasilar consolidation, now minimal. Interim extubation and nasogastric tube removal. Sameer Lafleur MD Abdomen/Pelvis CT 12/16/17 1415 Signed Impressions: Service Date/Time: Saturday, December 16, 2017 14:52 - CONCLUSION: 1. Infrarenal abdominal aortic aneurysm. 2. Bibasilar consolidating airspace disease. 3. Cholelithiasis 4. Prostatomegaly 5. Left renal cyst Ovi Puentes MD Neck CTA 12/16/17 1249 Signed Impressions: Service Date/Time: Saturday, December 16, 2017 12:51 - CONCLUSION: 1. No carotid stenosis. Cole Tracy MD Head CTA 12/16/17 1249 Signed Impressions: Service Date/Time: Saturday, December 16, 2017 12:51 - CONCLUSION: 1. Hypoplastic right A1 segment. 2. No evidence for large vessel occlusion as questioned. Findings were present discussed with Dr. Mitchell. Jacinto Hernandez MD Brain MRI 12/16/17 0000 Signed Impressions: Service Date/Time: Saturday, December 16, 2017 15:27 - 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 2. Scattered areas of increased signal intensity on the diffusion weighted imaging sequence with probable true punctate lacunar type infarct in the left basal ganglia. Based on the ADC maps, I believe the increased signal in the right parieto-occipital watershed area is T2 shine through. 3. Mild periventricular and scattered deep white matter tracks areas of small vessel ischemic demyelination. Andrés Lyons MD Objective Remarks GENERAL: This is a well-nourished, well-developed patient, not in acute distress CARDIOVASCULAR: RRR, no gallops, or rubs. RESPIRATORY: Fair air entry bilaterally. GASTROINTESTINAL: Abdomen soft, non-tender, nondistended. Positive bowel sounds MUSCULOSKELETAL: Extremities without clubbing, cyanosis, or edema. Pedal pulses appreciated NEUROLOGICAL: Awake and alert nonfocal ambulating with a walker Procedures none A/P Problem List: (1) Headache ICD Code: R51 - Headache (2) Acute respiratory failure ICD Code: J96.00 - Acute respiratory failure, unspecified whether with hypoxia or hypercapnia (3) Cholelithiasis ICD Code: K80.20 - Calculus of gallbladder without cholecystitis without obstruction (4) Umbilical hernia ICD Code: K42.9 - Umbilical hernia without obstruction or gangrene (5) Renal cyst, right ICD Code: N28.1 - Cyst of kidney, acquired (6) BPH (benign prostatic hyperplasia) ICD Code: N40.0 - Benign prostatic hyperplasia without lower urinary tract symptoms (7) Anticoagulant long-term use ICD Code: Z79.01 - nursing home (current) use of anticoagulants (8) Essential hypertension ICD Code: I10 - Essential (primary) hypertension (9) Gastroesophageal reflux disease ICD Code: K21.9 - Gastro-esophageal reflux disease without esophagitis (10) Atrial fibrillation ICD Code: I48.91 - Unspecified atrial fibrillation (11) History of CVA (cerebrovascular accident) ICD Code: Z86.73 - Personal history of transient ischemic attack (TIA), and cerebral infarction without residual deficits (12) Aneurysm of infrarenal abdominal aorta ICD Code: I71.4 - Abdominal aortic aneurysm, without rupture (13) Dyslipidemia ICD Code: E78.5 - Hyperlipidemia, unspecified (14) Depression ICD Code: F32.9 - Major depressive disorder, single episode, unspecified (15) Altered mental status ICD Code: R41.82 - Altered mental status, unspecified Status: Acute Assessment and Plan Hx of right cerebellar CVA in 2013 Major Depressive disorder NOS Acute left basal ganglia lacunar cerebral vascular accident -Encephalopathy is resolving -Neurology is following and thinks that this is metabolic and not secondary to a new CVA -Magnesium, Phosphorous and potassium were low and are being replaced -Apixaban has been resumed per neurology -Atorvastatin 40mg has been restarted . Hemoglobin A1c 6.3 risk factor modification -MRI brain revealed old right cerebellar infarct. Left basal ganglia perfusion possible acute infarct. -Patient was on CIWA due to unclear hx of alcohol abuse but the CIWA has been discontinued because the benzodiazepines could be causing altered mental status- has been sober for 6 years Elevated TSH -TSH was elevated and T3 was low, T4 normal History of atrial fibrillation status post ablation Hypertension Dyslipidemia History of infrarenal AAA -Hydralazine and Vasotec IV PRN for Systolic >160. Lisinopril just increased to 20 mg BID. Monitor BP -Echo showed EF of 50-55% -BP control should be closely monitored due to AAA -CT abdomen/pelvis revealed 3.5-3.9 cm infrarenal AAA. Left iliac 2.4 cm. Right iliac 1.8 cm. No signs of rupture or leakage -Continue amiodarone and digoxin 0.125 mg PO daily COPD PNA -Duoneb Q6 hours PRN for wheezing -Albuterol PRN for rescue -stable ct Levaquin and rpt CXR 6 weeks Gastroesophageal reflux disease Benign Prostate Hypertrophy Hematuria -Lansoprazole for GI prophylaxis -Docusate sodium/senna 1 tablet twice daily for bowel regimen -Hematuria likely due to urethral trauma from pulling out his Ku multiple times per the urologist/ Dr. Patel. Resolved -urologist recommends outpatient cystoscopy to rule out other causes and to continue his tamsulosin 0.8mg daily Prophylaxis -GI -lansoprazole -DVT -Apixaban Discharge Planning Stable for discharge Problem Qualifiers (1) Headache: Qualified Codes: R51 - Headache (2) Acute respiratory failure: Qualified Codes: J96.00 - Acute respiratory failure, unspecified whether with hypoxia or hypercapnia (3) Cholelithiasis: Qualified Codes: K80.80 - Other cholelithiasis without obstruction (4) Umbilical hernia: Qualified Codes: K42.9 - Umbilical hernia without obstruction or gangrene (5) BPH (benign prostatic hyperplasia): Qualified Codes: N40.0 - Benign prostatic hyperplasia without lower urinary tract symptoms (6) Gastroesophageal reflux disease: Qualified Codes: K21.9 - Gastro-esophageal reflux disease without esophagitis (7) Atrial fibrillation: Qualified Codes: I48.2 - Chronic atrial fibrillation (8) Depression: Qualified Codes: F33.9 - Major depressive disorder, recurrent, unspecified (9) Altered mental status: Qualified Codes: R40.2431 - [place] coma scale score 3-8, in the field [emt or ambulance] Jovi Schilling MD Dec 24, 2017 13:54
== END 2017-12-24 15:37 | disposition home health service (06) | DRG 208 ==
LOC: PHED 12:14 → EDBD 14:17 → PHEDA 14:17 → HIMN 18:27 → N04A 12-22 21:39
PROVIDERS: ADMIT Internal Medicine; ATTEND Internal Medicine
PROC: 0BH17EZ Insertion of Endotracheal Airway into Trachea, Via Natural or Artificial Opening (ICD-10-PCS; principal; 2017-12-16)
PROC: 5A1935Z Respiratory Ventilation, Less than 24 Consecutive Hours (ICD-10-PCS; 2017-12-16)
PROC: 0T9B70Z Drainage of Bladder with Drainage Device, Via Natural or Artificial Opening (ICD-10-PCS; 2017-12-17)
DX: J96.00 Acute respiratory failure, unspecified whether with hypoxia or hypercapnia (principal); I63.9 Cerebral infarction, unspecified; J15.0 Pneumonia due to Klebsiella pneumoniae; G93.41 Metabolic encephalopathy; J44.0 Chronic obstructive pulmonary disease with (acute) lower respiratory infection; S37.30XA Unspecified injury of urethra, initial encounter; R31.0 Gross hematuria; I48.2 Chronic atrial fibrillation; I72.3 Aneurysm of iliac artery; E87.6 Hypokalemia; I71.4 Abdominal aortic aneurysm, without rupture; N28.1 Cyst of kidney, acquired; F32.9 Major depressive disorder, single episode, unspecified; N40.0 Benign prostatic hyperplasia without lower urinary tract symptoms; I10 Essential (primary) hypertension; K21.9 Gastro-esophageal reflux disease without esophagitis; R41.82 Altered mental status, unspecified; E78.5 Hyperlipidemia, unspecified; R40.2430 Glasgow coma scale score 3-8, unspecified time; Z87.891 Personal history of nicotine dependence; Z86.73 Personal history of transient ischemic attack (TIA), and cerebral infarction without residual deficits; Z79.01 Long term (current) use of anticoagulants; Z78.1 Physical restraint status; Z82.3 Family history of stroke; Z79.899 Other long term (current) drug therapy
CPT/HCPCS: 36600; 51702; 70450; 70496; 70498; 70551; 71045; 74176; 80048; 80053; 80061; 80162; 80202; 80307; 82140; 82805; 82948; 83036; 83605; 83735; 84100; 84132; 84439; 84443; 84481; 84484; 85025; 85384; 85610; 85730; 86850; 86900; 86901; 87040; 87070; 87077; 87086; 87186; 87205; 87641; 93005; 93306; 94003; 94640; 94664; 95819; 96361; 96365; 96375; J0330; J0360; J0456; J0692; J1170; J2060; J2405; J3370; J3475; J3480; J7030; J7040; J7050; J7613; Q9967